=== PATIENT | male | born 1955 | race Caucasian/White ===

== ENCOUNTER 2021-10-03 11:25 | Outpatient (CLI) | payer MEDICARE, SELFPAY | END 2021-10-03 11:26 | disposition home or self-care (01) | PROVIDERS: PCP Family Medicine; Visit Provider Surgery | DX: Z12.11 Encounter for screening for malignant neoplasm of colon (principal); K63.5 Polyp of colon; K63.89 Other specified diseases of intestine; N40.0 Benign prostatic hyperplasia without lower urinary tract symptoms; Z86.010 Personal history of colon polyps | CPT/HCPCS: 45380; 45385; 88305; 99153; J1200; J2250; J3010 ==

== ENCOUNTER 2022-09-17 12:34 | Outpatient (CLI) | payer MEDICARE, SELFPAY ==
--- OUTSIDE RECORDS SUMMARY | 2022-09-17 12:37 | XMS_ITS | Continuity of Care Document ---
Author Name Unknown Organization [facility] Address [address] [place] [address] Encounter BRIGETTE RODRIGUEZ RODY # [id number] Date(s): 04/15/21 - 04/15/22 [facility] [address] [place] [address] Discharge Disposition: Routine Discharge Attending Physician: RONIT ROJAS DO Allergies, Adverse Reactions, Alerts No Known Allergies Medications atorvastatin Oral, Daily, 0 Refill(s), Signed: 02/17/21 12:59:00 MST, Maintenance Start Date: 02/17/21 Status: Ordered buPROPion Oral, 0 Refill(s), Signed: 02/17/21 12:59:00 MST, Maintenance Start Date: 02/17/21 Status: Ordered losartan Oral, Daily, 0 Refill(s), Signed: 02/17/21 12:59:00 MST, Maintenance Start Date: 02/17/21 Status: Ordered meloxicam 15 mg oral tablet 15 mg 1 tab, Oral, Daily, # 21 tab, 0 Refill(s), Signed: 02/17/21 13:39:00 [facility], Maintenance, Pharmacy: [id number], 1 tab Oral Daily,x21 days, 177.8 cm, 02/17/21 12:56:00 [facility], Height, 100 kg, 02/17/21 13:00:00 [facility], Weight Dosing Start Date: 02/17/21 Stop Date: 03/10/21 Status: Ordered metoprolol extended release Oral, Daily, 0 Refill(s), Signed: 02/17/21 12:59:00 MST, Maintenance Start Date: 02/17/21 Status: Ordered pramipexole Oral, 0 Refill(s), Signed: 02/17/21 12:59:00 MST, Maintenance Start Date: 02/17/21 Status: Ordered sertraline Oral, Daily, 0 Refill(s), Signed: 02/17/21 12:59:00 MST, Maintenance Start Date: 02/17/21 Status: Ordered tamsulosin 0.4 mg, Oral, Daily, 0 Refill(s), Signed: 02/17/21 12:59:00 MST, Maintenance Start Date: 02/17/21 Status: Ordered Problem List Condition Confirmation Course Effective Dates Status Health [facility] Informant Hypertension Confirmed Active Social History Social History Type Response Smoking Status Never (less than 100 in lifetime) entered on: 04/08/21 Sex
--- OUTSIDE RECORDS SUMMARY | 2022-09-17 12:37 | XMS_ITS | Continuity of Care Document ---
Author Name Unknown Organization 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 [place], [address], [facility], tel:[phone] [employer] No Information No Information Office/outpat ient visit,[facility], [facility] [place], [address], [facility], tel:[phone] [employer] No Information Mehbod Amir. [facility] [place], [address] [place] [address], [id number], . tel:[phone] Family History Family Member Type Diagnosis Age At Onset No Information Payers Payer name Insurance type Covered green party [place] tirol[place] [id number] BL [id number] Social History Type Description Quantity Date Captured Comments Sex Male Smoking Status No Information Chief Complaint And Reason For Visit No Information Reason For Referral Reason For Referral No Information Plan Of Treatment Date Type Action Status No Information History Of Present Illness Encounter Date Complaint History Of Prese nt Illness No Information Functional Status Date Functional Assessmen t No Information Instructions Date Instruction Additional Infor mation No Information Assessments Type Assessment Date No Information Patient Care Teams Name Effective Dates (start - stop) Status Members No Information
== END 2022-09-17 12:35 | disposition home or self-care (01) ==
LOC: RAD 12:35
PROVIDERS: PCP Family Medicine; Visit Provider Family Medicine
DX: R06.01 Orthopnea (principal); R94.31 Abnormal electrocardiogram [ECG] [EKG]
CPT/HCPCS: 93306

== ENCOUNTER 2022-10-06 07:30 | Day surgery (SDC) | payer MEDICARE, SELFPAY ==
[2022-10-06] VITALS (8 sets, daily range): BP systolic 136–156; BP diastolic 77–104; PULSE 56–67; RESP 16; TEMP 36.6–36.7; O2SAT 94–97; BMI 32.5
[2022-10-06] MEDS: LACTATED RINGERS 1000 ML 1,000 ML 100 ML IV ×2 (07:25→11:04)
--- OUTSIDE RECORDS SUMMARY | 2022-10-06 07:31 | XMS_ITS | Continuity of Care Document ---
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 2010 X-ray exam lower spine 2-3 views 2010 Advance Directives Directive Yes / No Effective Date File Name No Information Encounters Encounter Description Practice Location Reason(s) For Visit Diagnoses Date Provider Providers Copied on Encounter Z [facility], [address], [facility], tel:[phone] [employer] No Information No Information Office/outpat ient visit,[facility], [facility] [place], [address], [facility], tel:[phone] [employer] [place] No Information Mehbod Amir. [facility] [place], [address] [place] [address], [id number], . tel:[phone] Family History Family Member Type Diagnosis Age At Onset No Information Payers Payer name Insurance type Covered constitution party [place] [id number] BL [id number] Social History Type Description Quantity Date Captured Comments Sex Male Smoking Status No Information Chief Complaint And Reason For Visit No Information Reason For Referral Reason For Referral No Information History Of Present Illness Encounter Date Complaint History Of Prese nt Illness No Information Functional Status Date Functional Assessmen t No Information Instructions Date Instruction Additional Infor mation No Information Assessments Type Assessment Date No Information Patient Care Teams Name Effective Dates (start - stop) Status Members No Information
[2022-10-06] MEDS: SODIUM CHLORIDE 0.9 % (FLUSH) 10 ML SYRINGE IVF (07:48)
[2022-10-06] MEDS: MIDAZOLAM HCL 1 MG/ML inj IVP (08:31)
[2022-10-06] MEDS: fentaNYL 100 MCG/2 ML inj IVP (08:31)
--- NOTE | 2022-10-06 08:56 | SUR.PREOP ---
TIME?OUT:?0830 PT/RN/MDA?VERIFICATION?OF?SURGICAL?SITE Left Finger,?PROCEDURE Axe Block,?AND?CONSENT OBTAINED?PRIOR?TO?INVASIVE?PROCEDURE.
--- NOTE | 2022-10-06 09:00 | CRLHL7_ITS ---
For Patients: As a result of the Cures Act, medical imaging exams and procedure reports are released immediately into your electronic medical record. You may view this report before your referring provider. If you have questions, please contact your health care provider. Indication: LEFT SMALL FINGER ORIF Technique: Three fluoroscopic images of the left little finger. Fluoroscopic time 4.8 seconds. IMPRESSION: Fluoroscopic guidance for ORIF left little finger proximal phalangeal fracture. Dictated by Mark Buck MD @ 10/06/2022 10:35:24 AM (Electronically Signed)
[2022-10-06] MEDS: CEFAZOLIN 2 GM in 0.9 % SODIUM CHLORIDE Mini-bag 100 ML IVPB (09:36)
--- NOTE | 2022-10-06 10:01 | W.ANESCHARGE ---
Anesthesia Charges Start Date/Time Anesthesia Start Date: 10/06/22 Anesthesia Start Time: 09:20 Stop Date/Time Anesthesia Stop Date: 10/06/22 Anesthesia Stop Time: 10:58
--- NOTE | 2022-10-06 10:05 | W.PM.NB ---
Nerve Block Nerve Block Time Seen by Provider: 08:35 Date Seen: 10/06/22 Type of block requested by surgeon for post-operative analgesia: axillary Side: left Time out performed: Yes Verification of patient name: Yes Verification of date of : Yes Site marking: site marked Name of person performing procedure: Sid [place] Continuous monitoring Was continuous monitoring of O2 sat, B/P, factory representative, recorded every 15 minutes?: Yes Procedure Checklist: sterile prep, needles and gloves Ultrasound guided. Images saved: Yes Medications given in 5ml increments after negative aspiration: Ropivicaine %: 0.5 mL: 15 and Lidocaine %: 2 mL: 5 Decadron (mg): 10 Precedex (mcg): 15 Patient tolerated procedure well: Yes Block Charges Block Charge (with Pro Fee): Axillary Nerve Use of Ultrasound Machine for Block: Yes- US Guidance/pain block
--- NOTE | 2022-10-06 10:29 | PM.ORPRC ---
Procedure Note Date of procedure: 10/06/22 Procedure: PREOPERATIVE DIAGNOSES: 1. Left small finger proximal phalanx comminuted diaphyseal fracture with shortening and malrotation POSTOPERATIVE DIAGNOSES: 1. Left small finger proximal phalanx comminuted diaphyseal fracture with shortening and malrotation NAME OF OPERATION: 1. Left small finger proximal phalanx open reduction with internal fixation 2. 10529 - intraoperative fluoroscopy up to 1 hour. SURGEON: Tevin Ace MD PATTERN ILLUSTRATOR: Bernardo HYDE - Of note, an registered dental assistant rda was critical for this case to aide in patient positioning, limb manipulation, pin retraction, closure/dressing, and splinting. ANESTHESIA: Axillary nerve block + MAC EBL: 2 mL IMPLANTS: Synthes 2.0 mm cortical fully threaded locking screws (x6) with associated Y plate TOURNIQUET: 50 minutes at 225 torr-forearm tourniquet COMPLICATIONS: None evident INDICATIONS: The patient is a pleasant, 67-year-old male who sustained a left small finger proximal phalanx fracture after a fall within the last week. It was initially reduced at an outside emergency department. Excellent reduction was achieved and splinting a performed. Unfortunately, patient was encouraged to take the splint off for showering. This resulted in loss of reduction. They had difficulty with use and notable pain. X-rays were obtained. They revealed a fracture of the proximal phalanx with shortening and mild malrotation. Given the displacement, surgery was recommended to improve the fracture alignment and stablize the fracture. PROCEDURE: Following a thorough discussion of risks, benefits, and alternatives, consent was obtained and the operative extremity was marked. The patient was brought to the operating room and placed supine on the operating table. Induction of anesthesia was achieved. Appropriate time out was performed identifying proper patient, site and procedure. 2 g IV Ancef was administered within 1 hour of incision preoperatively. The left upper extremity was prepped and draped in the appropriate sterile fashion using ChloraPrep. A dorsal midline incision was made . Sharp incision through skin and blunt dissection through subcutaneous tissue allowed hemostasis to be achieved with bipolar cautery. The extensor mechanism was divided sharply with a 15 blade and later repaired. This allowed us to expose the fracture itself and cleared of interposed periosteum and fracture hematoma. Multiple small comminuted loose bone fragments were identified without soft tissue attachments. These were morcellized and later used for bone grafting. The defect primarily was along the dorsal radial aspect of the midportion at the fracture. The fracture was manipulated with traction of the digit allowing us to improve the alignment to an anatomic position. We were able to use ulnar border of the fracture to assess alignment, angulation, rotation and length. This was held manually. A Y plate was selected and applied to the bone. Temporary fixation was performed and C-arm fluoroscopic imaging confirmed the fracture to be improved alignment and stabilized. Screws were utilized primarily in a locking fashion with exception of the oblong hole which took a nonlocking screw. We were able to achieve 3 screws on both sides of the fracture. C-arm confirmed improved alignment and screw length. Thorough irrigation normal saline was performed. Closure performed with 5-0 Prolene for the extensor mechanism repair in a running locking fashion. The tourniquet was deflated, hemostasis achieved, and thorough irrigation with normal saline completed. Closure performed with 3-0 Vicryl and 4-0 Stratafix for subcutaneous and skin closure, respectively. Dressings were applied. An ulnar gutter splint was applied. Patient was awoken from anesthesia and transferred the PACU in stable condition. PLAN: 1. Elevate operative extremity. 2. Ice, acetominphen or ibuprofen PRN. 3. Oxycodone for pain as needed. 4. Follow up with PA visit in 12-14 days with removal of splint, wound check, and initiation of Orthoplast ulnar gutter short forearm based splint. Then initiate gentle range of motion at 4.5-5 weeks. Follow-up at the 5-6 week nando with [facility] for repeat x-rays left small finger-three views.
== END 2022-10-06 11:49 | disposition home or self-care (01) ==
PROVIDERS: PCP Family Medicine; Visit Provider Orthopaedic Surgery Sports Medicine
PROC: (CPT 26735; principal; 2022-10-06 09:00)
DX: S62.617A Displaced fracture of proximal phalanx of left little finger, initial encounter for closed fracture (principal); G89.18 Other acute postprocedural pain
CPT/HCPCS: 26735; 01830; 64417; 73140; 76942; A4580; C1713; J0690; J1100; J2250; J2405; J2704; J2795; J3010; J7120

== ENCOUNTER 2022-11-04 13:47 | Outpatient (CLI) | payer MEDICARE, SELFPAY ==
--- OUTSIDE RECORDS SUMMARY | 2022-11-04 13:50 | XMS_ITS | Continuity of Care Document ---
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 Name Role Phone Unavailable Unavailable Unavailable Procedures Procedure Date Office/outpatient visit,[facility] 2010 X-ray exam lower spine 2-3 views 2010 Advance Directives Directive Yes / No Effective Date File Name No Information Encounters Encounter Description Practice Location Reason(s) For Visit Diagnoses Date Provider Providers Copied on Encounter Z [facility], [address], [facility], tel:[phone] [employer] No Information No Information Office/outpat ient visit,[facility], [facility] [place], [address], [facility], tel:[phone] [employer] No Information Mehbod Amir. [facility] [place], [address] [place] [address], [id number], . tel:[phone] Family History Family Member Type Diagnosis Age At Onset No Information Payers Payer name Insurance type Covered green party ID Author[place] tirol[place] [id number] BL [id number] Social History Type Description Quantity Date Captured [...]
== END 2022-11-04 13:48 | disposition home or self-care (01) ==
LOC: FRMREF 13:48
PROVIDERS: PCP Family Medicine; Visit Provider Physician Assistant Medical
DX: I10 Essential (primary) hypertension (principal); Z79.01 Long term (current) use of anticoagulants
CPT/HCPCS: 80048

== ENCOUNTER 2022-11-12 09:30 | Outpatient (RCR) | payer MEDICARE, SELFPAY ==
--- NOTE | 2022-10-22 19:00 | OT.OPOE ---
OT Outpatient Ortho Eval OT Outpatient Ortho Eval* Start: 10/22/22 06:51 Freq: Status: Active Protocol: Document 10/22/22 06:52 AMB (Rec: 10/22/22 18:54 AMB [id number]) E-signed By Celena Jalloh, OTR/L, CLT, CLAIMS ASSOCIATE OT OP Ortho Eval Details Complexity Complexity Low Insurance Information Insurance Information Medicare B Outpatient History/Precautions Current Condition/Medical Diagnosis Referring Provider Dr Ace Treatment Diagnosis LUE 5th prox ph fx, s/p ORIF Date of Onset DOI: 09/25/22, DOS: 10/06/22 Medical Conditions DM,Depression,HTN,Arthritis Other Conditions PMH: Thrombocytopenia, Chronic anticoagulation, Apixaban, LUE 5th digit fx, DVT, Elevated PSA, Osteoarthritis of left knee (Chronic), Anxiety, Benign prostatic hyperplasia, Dyslipidemia, Gout, Essential (primary) hypertension, Obstructive sleep apnea syndrome, Prediabetes, Restless legs syndrome, Surgical History: nasal septoplasty (06/03/13), umbilical hernia repair (03/23), 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 Pt was scheduled for a LLE TKA which had to be delayed secondary to his finger fx / surgery. Medications: apixaban 5 mg PO BID atorvastatin 20 mg PO DAILY bupropion HCl 300 mg PO DAILY ceftriaxone 1 g IM QDAY fluoxetine (Prozac) 20 mg PO QDAY lorazepam 1-2 tabs at bedtime as needed for severe insomnia. losartan 50 mg PO DAILY metoprolol succinate ER 100 mg PO DAILY pramipexole 1 mg PO QPM tamsulosin 0.8 mg (2 x 0.4 mg) PO DAILY Medical/Functional History Medical History Reviewed Yes Prior Level of Function/Mobility Full, pain-free use of the LUE . Social History Employment Status Retired Hobbies Enjoys playing Pickle Ball, spending time with his grandchildren Ortho Subjective Subjective Subjective Pt states he injured his finger when he was attempting to level a boat house with a radha, his hand got hit and he sustained an injury that resulted in a displaced fx of the proximal phalanx of the LUE 5th digit. Pt was seen in the ER at [place] , the fx was reduced. Pt was seen for orthopedic consult with Dr Ace on 10/02/22 and it was discovered that there was a 30? dorsal angulation at the fracture site and surgery was indicated. Pt underwent ORIF with Dr Ace on , states he really isn't having any kind of pain, has not had any pain at all. Pt anxious to get his hand better so he can play pickle ball and help his son build a pole barn. Pain Assessment Pain Present Pain Present No Pain Reported Range of Motion and Strength Elbow/Forearm Range of Motion and Strength Elbow/Forearm Range of Motion and Pt demonstrate full AROM of Strength BUE Elbows/forearms Wrist Range of Motion and Strength Wrist Range of Motion and Strength Pt demonstrates full AROM of BUE wrists. Hand/Finger/Thumb Range of Motion and Strength Hand/Finger/Thumb Range of Motion and AROM of BUE hands/fingers/ Strength thumbs is WNL throughout with the exception of the LUE 4th and 5th digits. AROM of the LUE 5th MP is 0-50, PIP is -15 -30, DIP is -20-35. AROM of the LUE 4th digit MP is 0-60, PIP is 0-45, and DIP is 0-25. Pt demonstrates opposition to the tip of the 5th digit. OT Objective Data Hand Hand Dominance Right Skin/Wounds/Edema Comments Incisional area is clean and dry, no drainage and no s/s of infection. Wound is covered by surgical glue. Pt does have expected swelling in the hand / fingers, no pitting. Sensation Sensation Assessment Summary Comments Pt denies any paresthesia. OT Problems Problems Problems Decreased Strength,Decreased Range of Motion,Decreased Dexterity,Decreased Coordination,Lifting,Gripping Other Problems Opening Containers Patient Potential Good Assessment Assessment Assessment Pt presents to OT 2 weeks and 2 days s/p ORIF LUE SF proximal phalanx with expected swelling, limited ROM and weakness. Due to these deficits, pt is limited in all activities that require use of LUE or bilateral integration such as mechanical work, building, playing pickle ball, lifting, etc. Pt will benefit from skilled OT intervention to address limitations and restore full, pain-free use of the LUE. Occupational Therapy Treatment Plan - OP Potential Rehabilitation Potential Good Set Goals Goals Set with Patient Yes Goals Goals 1. Pt will be independent and compliant with HEP in order to resume full, pain-free use of the involved UE. 3 weeks 2. Pt will demonstrate full, pain-free AROM of the involved UE in order to improve ability to grasp and hold. 6 weeks 3. Pt will demonstrate pain- free white washer and pinch strength comparable to the uninvolved side in order to improve functional grasp, hold, reach, and lifting ability needed to complete self-care, leisure tasks, and work activities. 8 weeks. Treatment Plan Treatment Plan Evaluation,Edema Control,Joint Mobilization,Manual Therapy, Splinting,Wound Care/Scar Management,Therapeutic Exercise,Therapeutic Activities,Self Care/Home Management,Education Expected Frequency 1-2x Week Expected Duration 8-10 Weeks Home Program Home Program Home Program Initiated Home Program Specifics Provided training and practice in HEP for AROM and differential tendon glides for the LUE. Following demo, pt is able to demonstrate exs with minimal cues. Pt was provided with written inst for use at home as well. Certification Certification I Certify That: Therapy Services Provided, Therapy Plan Established, Therapy Plan Reviewed Recertification Information Recertification Information Initial Certification Date 10/22/22 Recertification Due Date 01/20/23 Reasons to Continue Skilled Therapy Initiated OT to address deficits in the LUE following ORIF of SF prox ph. Rehabilitation Potential Good Continued Plan of Care and Interventions Please see above. Provider Signature Shows Agreement With POC & Medical Necessity Physician Comment/Change Comment or Changes Physician NPI Number #
== END 2022-11-12 12:03 | disposition home or self-care (01) ==
PROVIDERS: PCP Family Medicine; Visit Provider Orthopaedic Surgery Sports Medicine
DX: S62.609A Fracture of unspecified phalanx of unspecified finger, initial encounter for closed fracture (principal); Z98.890 Other specified postprocedural states; Z96.652 Presence of left artificial knee joint; Z51.89 Encounter for other specified aftercare
CPT/HCPCS: 97110; 97140; 97165; L3808; X5282

== ENCOUNTER 2022-11-18 09:40 | Outpatient (RCR) | payer MEDICARE, SELFPAY | END 2023-03-22 23:59 | disposition home or self-care (01) | LOC: CCIC 09:40 | PROVIDERS: PCP Family Medicine; Visit Provider Internal Medicine Hematology & Oncology | DX: I82.452 Acute embolism and thrombosis of left peroneal vein (principal); I82.432 Acute embolism and thrombosis of left popliteal vein; Z79.01 Long term (current) use of anticoagulants | CPT/HCPCS: 99202; 99204; 99212; 99213 ==

== ENCOUNTER 2022-11-19 10:35 | Day surgery (SDC) | payer MEDICARE, SELFPAY ==
[2022-11-19] VITALS (37 sets, daily range): BP systolic 96–168; BP diastolic 57–113; PULSE 47–59; RESP 12–20; TEMP 35.1–36.6; O2SAT 90–99; BMI 32.2
--- OUTSIDE RECORDS SUMMARY | 2022-11-19 10:38 | XMS_ITS | Continuity of Care Document ---
Author Name Unknown Organization Z [facility] Address [address] [place] [address] Phone Care Team Providers Care Belt And Link Assembly Supervisor Name Role Phone Unavailable Unavailable Unavailable Procedures Procedure Date Office/outpatient visit,[facility] 2010 X-ray exam lower spine 2-3 views 2010 Advance Directives Directive Yes / No Effective Date File Name No Information Encounters Encounter Description Practice Location Reason(s) For Visit Diagnoses Date Provider Providers Copied on Encounter Z [facility], [address], [facility], tel:[phone] [facility] No Information No Information Office/outpat ient visit,[facility] [facility] [place] [facility] [place], [address], [facility], tel:[phone] [employer] [facility] [place] No Information Mehbod Amir. [facility] [place], [address] [place] [address], [id number], . tel:[phone] Family History Family Member Type Diagnosis Age At Onset No Information Payers Payer name Insurance type Covered democrat ID [place]rol[place] [id number] Social History Type Description Quantity Date Captured [...]
[2022-11-19] MEDS: SODIUM CHLORIDE 0.9 % (FLUSH) 10 ML SYRINGE IVF (11:42)
[2022-11-19] MEDS: LACTATED RINGERS 1000 ML 1,000 ML 100 ML IV ×2 (11:43→14:07)
[2022-11-19] MEDS: OXYCODONE (CR) 10 MG TAB.ER.12H PO (12:56)
[2022-11-19] MEDS: ACETAMINOPHEN 500 MG TABLET 1000 MG PO (12:56)
[2022-11-19] MEDS: MIDAZOLAM HCL 1 MG/ML inj IVP (12:59)
[2022-11-19] MEDS: fentaNYL 100 MCG/2 ML inj IVP (12:59)
--- NOTE | 2022-11-19 13:02 | SUR.PREOP ---
TIME?OUT:?1257 PT/Janet Aguirre RN/Dr. Armani MDA?VERIFICATION?OF?SURGICAL?SITE left knee,?PROCEDURE,?AND?CONSENT OBTAINED?PRIOR?TO?INVASIVE?PROCEDURE.
[2022-11-19] MEDS: CEFAZOLIN 2 GM in 0.9 % SODIUM CHLORIDE Mini-bag 100 ML IVPB ×2 (13:12→18:35)
[2022-11-19] MEDS: TRANEXAMIC ACID 100 MG/ML INJ 1000 MG IV (13:15)
--- NOTE | 2022-11-19 13:15 | CRLHL7_ITS ---
For Patients: As a result of the Cures Act, medical imaging exams and procedure reports are released immediately into your electronic medical record. You may view this report before your referring provider. If you have questions, please contact your health care provider. Indication: Left total knee arthroplasty. Technique: Left knee, 2 views. Comparison: 07/09/2022. Findings: Left total knee arthroplasty. The components appear to be an radiographically in good position. There is a periprosthetic fracture through the medial distal femoral metaphysis. There is only 2-3 mm displacement. Expected intra-articular air, subcutaneous emphysema, and large soft tissue swelling. Normal underlying bone mineralization. No focal destructive bone lesions. Impression: Left distal femur periprosthetic fracture. Findings called to Dr. Wyatt at 3:48 p.m. CREDIT CONTROL ADMINISTRATOR on 11/19/[address] Peguero. Dictated by Leana Peguero MD @ 11/19/2022 3:49:25 PM (Electronically Signed)
--- NOTE | 2022-11-19 13:28 | P.NB_ITS ---
Nerve Block Nerve Block Time Seen by Provider: 12:56 Date Seen: 11/19/22 Type of block requested by surgeon for post-operative analgesia: adductor canal Side: left Time out performed: Yes Verification of patient name: Yes Verification of date of : Yes Site marking: site marked Name of person performing procedure: Armani Continuous monitoring Was continuous monitoring of O2 sat, B/P, cafeteria monitor, recorded every 15 minutes?: Yes Procedure Checklist: sterile prep, needles and gloves Ultrasound guided. Images saved: Yes Medications given in 5ml increments after negative aspiration: Ropivicaine %: 0.5 mL: 20 Needle gauge: 20 Decadron (mg): 10 Precedex (mcg): 25 Patient tolerated procedure well: Yes Additional comments: Needle noted adjacent to nerve Block Charges Block Charge (with Pro Fee): Femoral Nerve Use of Ultrasound Machine for Block: Yes- US Guidance/pain block
--- NOTE | 2022-11-19 13:28 | W.PM.NB ---
Nerve Block Nerve Block Time Seen by Provider: 12:56 Date Seen: 11/19/22 Type of block requested by surgeon for post-operative analgesia: geniculars Side: left Time out performed: Yes Verification of patient name: Yes Verification of date of : Yes Site marking: site marked Name of person performing procedure: Armani Continuous monitoring Was continuous monitoring of O2 sat, B/P, mixing machine tender, recorded every 15 minutes?: Yes Procedure Checklist: sterile prep, needles and gloves Medications given in 5ml increments after negative aspiration: Ropivicaine %: 0.5 mL: 9 Needle gauge: 25 Patient tolerated procedure well: Yes Block Charges Block Charge (with Pro Fee): Genicular Nerve Block Use of Ultrasound Machine for Block: No
--- NOTE | 2022-11-19 13:29 | W.ANESCHARGE ---
Anesthesia Charges Start Date/Time Anesthesia Start Date: 11/19/22 Anesthesia Start Time: 13:00 Stop Date/Time Anesthesia Stop Date: 11/19/22 Anesthesia Stop Time: 14:52
--- NOTE | 2022-11-19 14:14 | P.ORPRC_ITS ---
Procedure Note Date of procedure: 11/19/22 Procedure: PREOPERATIVE DIAGNOSIS: 1. Left knee osteoarthritis, primary, severe POSTOPERATIVE DIAGNOSIS: 1. Left knee osteoarthritis, primary, severe PROCEDURE: 1. Left total knee arthroplasty SURGEON: Tevin Ace MD. BANK SECRECY ACT OFFICER: MARY ELLEN Pisano - Of note, a skilled clerical dentist assistant was critical for this case to aid in patient positioning, tissue retraction, limb manipulation/positioning, and closure. ANESTHESIA: Spinal anesthetic EBL: 50ml IMPLANTS: DePuy J&J uncemented femur/tibia, cemented patella TKA - Attune Press fit PS femur size 8, size 7 tibia, 5 poly spacer, 41mm cemented patella TOURNIQUET: 70 min at 300 torr COMPLICATIONS: None evident INDICATIONS: The patient is a pleasant 67-year-old male who has experienced severe left knee pain and difficulty bearing weight. Workup included x-rays which revealed severe osteoarthrosis in the knee. Given the deformity, the dysfunction, and the pain, as well as the failure of nonoperative management, recommendation was made for surgery. FINDINGS: Full-thickness chondral loss broadly throughout the medial femoral condyle with significant subchondral dense bone. Significant patellofemoral chondromalacia. To lesser degree lateral compartment. Degenerative meniscus pathology both compartments. DESCRIPTION OF PROCEDURE: Following a thorough discussion of risks, benefits, and alternatives consent was obtained and the left knee was marked. The patient was brought to the operating room and placed supine on the operating table. Induction of anesthesia was undertaken. 2 g IV Ancef and 1 g tranexamic acid was administered within 1 hr of incision preoperatively. Proper time-out was performed identifying proper patient, site, procedure. The operative extremity was prepped and draped in the appropriate sterile fashion using ChloraPrep after the patient was positioned supine with all bony prominences well padded. A longitudinal, anterior, midline skin incision was made starting approximately 3cm proximal to the superior pole of the patella and advanced distal to the tibial tubercle. A median parapatellar arthrotomy was created. A medial subperiosteal sleeve was created with knife, stephens elevator and curved osteotome. The retropatellar fatpad was resected and the synovium in the suprapatellar pouch excised to visualize the anterior femoral cortex. Femoral preparation was performed via an intramedullary guide. Step drill allowed access into the femoral canal. The distal cutting guide was placed with 5? of valgus and 11 mm cut on the distal femur. Femur was sized using a posteri or referencing guide in 3? of external rotation. This found have a best fit with the sizing noted above. The 4 in 1 cutting block was then placed, and the distal femur shaped accordingly. The box cut was then created and the trial implant inserted to confirm appropriate fit. We turned our attention to the proximal tibia. Extramedullary guide was utilized for cutting with the goal of being 90 degree cut from the mechanical axis of the tibia in the varus/valgus plane utilizing tibial crest as the primary alignment. Initially a 3 mm resection was performed from the medial tibial plateau. Ultimately, balancing was achieved in both flexion and extension in both varus and valgus. The knee was able to achieve full extension comfortably. The patella was initially measured and found have a thickness of 24 mm. It was resected back to approximately 14 mm. It was sized to be a best fit with as noted above. This was drilled & trial placed. All trials were placed and found to have an excellent stability and balance. At this stage, trial implants were removed, the tibia and femoral components were opened and inserted. Thereafter, the patella was thoroughly irrigated normal saline and dried. The cement was previously mixed on the back table and cement placed followed by the implant. This was clamped and allowed remained stable until the cement cured. The real poly spacer was opened and inserted. All extra cement was removed, and a 3 min Betadine soak performed. Finally, a final irrigation round with normal saline was performed. Closure performed with 0 PDS and #0 Stratafix for the quad tendon/retinaculum. 2-0 Vicryl/Stratafix for the subcutaneous and 4-0 Monocryl for subcuticular closure. Dressings were applied and the patient was awoken from anesthesia after the tourniquet deflated and transferred the PACU in stable condition. A skilled clerical dentist assistant was critical for this case to aid in patient positioning, tissue retraction, bone exposure, limb manipulation/positioning, patient safety, and closure. PLAN: 1. Weight bear as tolerated operative extremity. 2. 23 hr perioperative antibiotics. 3. Ice. 4. PT/OT consults for ambulation assistance/mobility education. 5. Social work consult for discharge planning. 6. DVT prophylaxis with at SCDs, Rajeev Hose, and aspirin twice daily.
--- NOTE | 2022-11-19 14:14 | W.PM.H&PU ---
History & Physical Update History & Physical Update H&P Reviewed and patient assessed: No changes noted
--- NOTE | 2022-11-19 14:54 | W.ANESCHARGE ---
Anesthesia Charges Start Date/Time Anesthesia Start Date: 11/19/22 Anesthesia Start Time: 13:00 Stop Date/Time Anesthesia Stop Date: 11/19/22 Anesthesia Stop Time: 14:52
--- NOTE | 2022-11-19 16:30 | CRLHL7_ITS ---
For Patients: As a result of the Cures Act, medical imaging exams and procedure reports are released immediately into your electronic medical record. You may view this report before your referring provider. If you have questions, please contact your health care provider. Indication: ORIF Left Knee Technique: Two fluoroscopic images of the left knee. Fluoroscopic time 2 seconds. IMPRESSION: Fluoroscopic guidance of fixation across the distal femoral fracture above the prosthesis. Dictated by Mark Buck MD @ 11/20/2022 8:08:03 AM (Electronically Signed)
[2022-11-19] MEDS: LACTATED RINGERS 1000 ML 1,000 ML 75 ML IV (16:58)
--- NOTE | 2022-11-19 18:32 | W.PM.H&PU_ITS ---
History & Physical Update History & Physical Update H&P Reviewed and patient assessed: The following changes are noted below H&P Updates: The patient underwent a left TKA today. Press-Fit design. Intraoperatively, no complications were identified. The patient achieved full range of motion as be expected following TKA. No audible crack could be heard during surgery. No sudden excessive range of motion was felt. No change in the stability with varus and valgus stress could be appreciated. However, postop radiographs that were obtained did reveal a medial femoral distal condylar fracture with minimal displacement. The implant itself did not appear to be displaced the femoral component that is, but given the fracture, it was recommended to stabilize this. I communicated the findings to the patient and his . I showed them the radiographs. I helped him understand the current situation. He understands the pros and cons of staying the nonoperative course verses ORIF of the left distal femur. Indeed we will plan to do the surgery tonight. Consent was obtained he re this evening and the extremity was marked.
--- NOTE | 2022-11-19 18:39 | P.IMCN_ITS ---
Date of Consult Patient: [facility] Patient Consult date: 11/19/22 Requesting Physician: Orthopedics Primary Care Provider: Beena Pablo MD Consult Narrative Reason for consult: DVT in June 2022, HTN, hyperlipidemia Narrative: Mukul Castillo is a 67 year old male with h/o DVT this past year who underwent an elective left total knee arthroplasty by Dr. Ace today for severe osteoarthritis. He went back to the OR after I saw him for something seen on the post op film. When I saw him, he was feeling well and with minimal pain. His , Rosalva, was in the room with him. Review of Systems Status of ROS: Reports: 6 or more systems reviewed and unremarkable except as noted in History and below [facility] Medical History (Updated 11/19/22 @ 20:34 by Aury Hernandez MD) Back pain ?M54.9 - Dorsalgia, unspecified (ICD-10) Chronic anticoagulation ?Z79.01 - [facility] (current) use of anticoagulants (ICD-10) Elevated PSA ?R97.20 - Elevated prostate specific antigen [PSA] (ICD-10) Osteoarthritis of left knee ?M17.12 - Unilateral primary osteoarthritis, left knee (ICD-10) Benign prostatic hyperplasia (04/02/12) ?N40.0 - Benign prostatic hyperplasia without lower urinary tract symptoms (ICD-10) Gout ?M10.9 - Gout, unspecified (ICD-10) Adenomatous colon polyp ?D12.6 - Benign neoplasm of colon, unspecified (ICD-10) DVT (deep venous thrombosis) ?I82.409 - Acute embolism and thrombosis of unspecified deep veins of unspecified lower extremity (ICD-10) Anxiety disorder (01/13/11) ?F41.9 - Anxiety disorder, unspecified (ICD-10) Depression ?F32.A - Depression, unspecified (ICD-10) Dyslipidemia ?E78.5 - Hyperlipidemia, unspecified (ICD-10) Hypertension (06/07/09) ?I10 - Essential (primary) hypertension (ICD-10) Obstructive sleep apnea syndrome (06/07/09) ?G47.33 - Obstructive sleep apnea (adult) (pediatric) (ICD-10) Prediabetes ?R73.03 - Prediabetes (ICD-10) Restless legs syndrome (01/13/11) ?G25.81 - Restless legs syndrome (ICD-10) Pre-op exam ?Z01.818 - Encounter for other preprocedural examination (ICD-10) Thrombocytopenia ?D69.6 - Thrombocytopenia, unspecified (ICD-10) Melena ?K92.1 - Melena (ICD-10) Hematuria ?R31.9 - Hematuria, unspecified (ICD-10) Umbilical hernia ?K42.9 - Umbilical hernia without obstruction or gangrene (ICD-10) Surgical History (Updated 11/19/22 @ 20:31 by Aury Hernandez MD) S/P total knee arthroplasty (11/19/22) ?Z96.659 - Presence of unspecified artificial knee joint (ICD-10) H/O colonoscopy ?Z98.890 - Other specified postprocedural states (ICD-10) History of open reduction and internal fixation (ORIF) procedure (10/06/22) ?Z98.890 - Other specified postprocedural states (ICD-10) History of nasal septoplasty (06/03/13) ?Z98.890 - Other specified postprocedural states (ICD-10) History of umbilical hernia repair (03/23/17) ?Z98.890 - Other specified postprocedural states (ICD-10) ?Z87.19 - Personal history of other diseases of the digestive system (ICD-10) H/O inguinal hernia repair (03/23/17) ?Z98.890 - Other specified postprocedural states (ICD-10) ?Z87.19 - Personal history of other diseases of the digestive system (ICD-10) 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) ?Z96.651 - Presence of right artificial knee joint (ICD-10) History of colonoscopy with polypectomy ?Z98.890 - Other specified postprocedural states (ICD-10) ?Z86.010 - Personal history of colonic polyps (ICD-10) History of esophagogastroduodenoscopy (EGD) (10/2014) ?Z98.890 - Other specified postprocedural states (ICD-10) History of rotator cuff surgery ?Z98.890 - Other specified postprocedural states (ICD-10) History of surgical amputation of finger ?Z89.029 - Acquired absence of unspecified finger(s) (ICD-10) Status post total shoulder replacement ?Z96.619 - Presence of unspecified artificial shoulder joint (ICD-10) Family History (Updated 11/19/22 @ 15:05 by Aury Hernandez MD) Father Bladder cancer Mother Colorectal cancer High blood pressure Social History (Updated 11/19/22 @ 16:53 by Aury Hernandez MD) Narrative: Alcohol ingestion, 1-4 drinks/week Does not use illicit drugs Nonsmoker, lifelong Worked on [employer] Smoking Status: Never smoker Do you use any of these nicotine containing products: None Second hand tobacco smoke exposure: No How often do you have a drink containing alcohol: 2-4 times a month Alcohol type: beer How many standard drinks containing alcohol do you have on a typical day: 1 or 2 How often do you have six or more drinks on one occasion: Never AUDIT-C Alcohol total score: 2 Non-prescribed substance use: denies use Caffeine: Yes (Diet Coke, 2 cans/week) Little interest or pleasure in doing things: not at all Feeling down, depressed, or hopeless: not at all service: No Meds Home Medications and Allergies Home Medications Medication Instructions Recorded Confirmed Type lorazepam 0.5 mg tablet mg PO .Bedtime as needed PRN 10/01/22 11/18/22 History Allergies Allergy/AdvReac Type Severity Reaction Status Date / Time No Known Allergies Allergy Verified 11/19/22 10:55 Exam Narrative: Exam Narrative: General: No acute distress. Awake alert oriented x3. HEENT: Normocephalic atraumatic, pupils equally round and reactive to light and accommodation. Oropharynx clear. Mucous membranes are moist. No JVD. Cardiovascular: Regular rate and rhythm. No murmurs, gallops, or rubs. Chest: No increased work of breathing. Clear to auscultation bilaterally. No crackles or wheezes. Abdomen: Bowel sounds present. Soft, nondistended, nontender. No hepatosplenomegaly or masses. Extremities: Left knee bandage is clean, dry, and intact. No edema, no cyanosis or clubbing. Skin: No jaundice, no pallor, no rashes. Const: Vital Signs, click to edit/add: Vital Signs - 24 hr 11/19/22 11:41 11/19/22 12:56 11/19/22 13:00 Temperature 97.7 F Pulse Rate 58 L 58 L 52 L Pulse Rate [Pulse Oximeter] Respiratory Rate 16 16 16 Blood Pressure 159/97 H 149/97 H 140/96 H Blood Pressure [Le ft Arm] Blood Pressure [Ri ght Arm] Pulse Oximetry 93 93 93 Oxygen Delivery Me thod Room Air Nasal Cannula Nasal Cannula Oxygen Flow Rate 2 2 11/19/22 14:50 11/19/22 14:55 11/19/22 15:00 Temperature 97.7 F Pulse Rate 53 L 52 L 53 L Pulse Rate [Pulse Oximeter] Respiratory Rate 16 12 19 Blood Pressure 96/57 L 100/65 103/70 Blood Pressure [Le ft Arm] Blood Pressure [Ri ght Arm] Pulse Oximetry 91 93 90 Oxygen Delivery Me thod Non Rebreather Mas k Nasal Cannula Oxygen Flow Rate 6 3 11/19/22 15:05 11/19/22 15:10 11/19/22 15:15 Temperature Pulse Rate 55 L 54 L 52 L Pulse Rate [Pulse Oximeter] Respiratory Rate 20 20 20 Blood Pressure 116/76 116/73 108/69 Blood Pressure [Le ft Arm] Blood Pressure [Ri ght Arm] Pulse Oximetry 97 96 94 Oxygen Delivery Me thod Oxygen Flow Rate 2 11/19/22 15:20 11/19/22 15:25 11/19/22 15:30 Temperature 97.6 F Pulse Rate 52 L 52 L 54 L Pulse Rate [Pulse Oximeter] Respiratory Rate 16 12 20 Blood Pressure 110/62 125/83 139/83 Blood Pressure [Le ft Arm] Blood Pressure [Ri ght Arm] Pulse Oximetry 90 96 99 Oxygen Delivery Me thod Nasal Cannula Oxygen Flow Rate 2 11/19/22 15:40 11/19/22 15:57 11/19/22 16:00 Temperature 95.2 F L 95.2 F L Pulse Rate 51 L Pulse Rate [Pulse Oximeter] 51 L 52 L Respiratory Rate 16 16 16 Blood Pressure Blood Pressure [Le ft Arm] 134/89 140/89 H Blood Pressure [Ri ght Arm] 134/89 Pulse Oximetry 94 92 Oxygen Delivery Me thod Room Air Room Air Room Air Oxygen Flow Rate 11/19/22 16:15 11/19/22 16:30 11/19/22 16:45 Temperature 95.2 F L Pulse Rate Pulse Rate [Pulse Oximeter] 51 L 50 L 50 L Respiratory Rate 16 16 16 Blood Pressure Blood Pressure [Le ft Arm] 136/90 H 148/88 H 139/95 H Blood Pressure [Ri ght Arm] Pulse Oximetry 91 93 93 Oxygen Delivery Me thod Room Air Room Air Room Air Oxygen Flow Rate 11/19/22 17:00 Temperature Pulse Rate Pulse Rate [Pulse Oximeter] 48 L Respiratory Rate 16 Blood Pressure Blood Pressure [Le ft Arm] 150/92 H Blood Pressure [Ri ght Arm] Pulse Oximetry 93 Oxygen Delivery Me thod Room Air Oxygen Flow Rate Assessment and Plan Assessment and plan (1) S/P total knee arthroplasty: Problem comment: - 11/19/2022 Dr. Ace - angelo per Ortho - VTE prophylaxis with twice a day Eliquis due to unprovoked DVT 4-5 months ago. I discussed this with Ortho and, due to need for repeat manipulation of the area this evening, will start Eliquis with tomorrow evening's dose. Status: Acute (2) Osteoarthritis of left knee: Problem comment: severe Status: Chronic (3) Chronic anticoagulation: Problem comment: - Apixaban for DVT 06/2022 - restart apixaban tomorrow evening as above Status: Chronic (4) Anxiety disorder: Problem comment: Continue fluoxetine and lorazepam Status: Chronic (5) Dyslipidemia: Problem comment: Continue atorvastatin Status: Chronic (6) Depression: Status: Chronic (7) Hypertension: Problem comment: Hold home antihypertensives as patients often have low blood pressure the 1st postoperative day Status: Chronic (8) Obstructive sleep apnea syndrome: Problem comment: CPAP - brought with him to the hospital Status: Chronic (9) Thrombocytopenia: Problem comment: - Platelets 126 on preop labs 11/04/22. - Monitor. Status: Chronic
--- NOTE | 2022-11-19 19:03 | PC.NURSE ---
Addendum entered by Gabriella Moore RN 11/19/22 19:18: Patient left Med/Surg at approximately 1830 to return to OR. Original Note: Patient arrived to Med/Surg from OR at approximately 1540. Patient is alert and oriented to person, place, and time. Patient spouse in room upon arrival to Med/Surg floor. Patient denies pain. MD discussed need for surgical repair of femur fracture, see MD notes. Patient verbalized understanding of procedure. Patient left Med/Surg at approximately 1725 to return to OR.
--- NOTE | 2022-11-19 20:12 | P.ANES_ITS ---
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
[2022-11-19] MEDS: OXYCODONE 5 MG TABLET PO (21:25)
[2022-11-20] MEDS: ACETAMINOPHEN 500 MG TABLET 1000 MG PO ×2 (00:14→06:21)
[2022-11-20 03:00] VITALS: BP 153/91; PULSE 60; RESP 16; TEMP 36.3; O2SAT 94
[2022-11-20] MEDS: CEFAZOLIN 2 GM in 0.9 % SODIUM CHLORIDE Mini-bag 100 ML IVPB ×2 (03:06→11:32)
[2022-11-20] MEDS: OXYCODONE 5 MG TABLET PO ×2 (03:07→11:44)
[2022-11-20] MEDS: LORazepam 0.5 MG TABLET PO (03:52)
[2022-11-20 06:22] LABS: Hemoglobin* 14.5 gm/dL (13.5-17.5); Lymphocytes Percent Auto 17.1 % (20-44); Mean Corpuscular HGB Conc 33 gm/dL (32-36); Mean Corpuscular Hemoglobin 26 pg (26-34); Mean Corpuscular Volume 80 fL (80-100); Neutrophils Percent Auto 77.9 % (42.0-72.0); Platelet Count* 152 K/uL (140-440); RDW Coefficient of Variation % 13.4 % (11.5-15.5); Red Blood Count 5.51 m/uL (4.30-5.90); White Blood Count* 14.93 K/uL (4.50-11.00)
[2022-11-20 06:23] LABS: Basophils Percent Auto 0.1 % (0.0-3.0); Immature Granulocytes Pct Auto 0.3 %; Monocytes Percent Auto 4.6 % (0.0-11.0)
--- NOTE | 2022-11-20 06:32 | PC.NURSE ---
23-07: pleasant and Cooperative. SBA with gb and walker, tolerating well. Rating pain 1-10, see eMAR. VSS. Dressing CDI, cryocuff on. Pt drinking fluids and tolerating regular diet, snacks provided throughout the night, pt states he doesn?t usually sleep well throughout the night, so he snacks during the night, prn Ativan given, offered some sleep.
[2022-11-20 06:35] LABS: Potassium* 4.2 mmol/L (3.6-5.1); Sodium* 135 mmol/L (135-149)
[2022-11-20 06:38] LABS: Blood Urea Nitrogen* 18 mg/dL (7-30); Creatinine* 0.8 mg/dL (0.5-1.5); Est. Creatinine Clearance* 71.68; Estimated Glomerular Filt Rate 97 ml/min
[2022-11-20 06:42] LABS: Slide Review Reflex No
[2022-11-20 07:00] VITALS: BP 145/80; PULSE 52; RESP 16; TEMP 36.2; O2SAT 92
[2022-11-20] MEDS: ATORVASTATIN 10 MG TABLET 20 MG PO (09:05)
[2022-11-20] MEDS: SENNOSIDES 1 TAB TABLET 2 TAB PO (09:05)
[2022-11-20] MEDS: FLUOXETINE HCL 20 MG CAPSULE PO (09:05)
[2022-11-20] MEDS: TAMSULOSIN HCL 0.4 MG CAPSULE 0.8 MG PO (09:05)
[2022-11-20] MEDS: buPROPion XL 150 MG TABLET 300 MG PO (09:05)
--- NOTE | 2022-11-20 09:52 | PM.ORPN ---
Subjective Subjective Date Seen: 11/20/22 Principal diagnosis: Status postop day 1 left total knee arthroplasty Interval history: Patient reports doing well. No acute events over night. Did not sleep the best. Tries to keep moving his knee. Pain managed with scheduled and PRN medications, ice. DVT prophylaxis: Apixaban, bilateral knee high Rajeev stockings, SCDs. Denies fevers, chills, aches, N/V, CP, SOB/GORE, or lightheadedness. Ortho Exam Narrative Exam Narrative: -Patient appears comfortable; no apparent acute distress -Alert and oriented times 3 -Operative knee moderately swollen; soft tissues supple; no ecchymosis; no erythematous streaking Warmth appropriate -Surgical dressing clean, dry, intact; no drainage -ROM 5-75 degrees actively -Bilateral calfs soft; no significant swelling, edema, tenderness, erythema, discoloration, warmth, or palpable cords -2+ DP/PT pulses, intact dermatomes and myotomes distally (5/5 strength) Const Vital Signs, click to edit/add: Vital Signs - 24 hr 11/19/22 11:41 11/19/22 12:56 11/19/22 13:00 Temperature 97.7 F Pulse Rate 58 L 58 L 52 L Pulse Rate [Pulse Oximeter] Respiratory Rate 16 16 16 Blood Pressure 159/97 H 149/97 H 140/96 H Blood Pressure [Left Arm] Blood Pressure [Right Arm] Pulse Oximetry 93 93 93 Oxygen Delivery Method Room Air Nasal Cannula Nasal Cannula Oxygen Flow Rate 2 2 11/19/22 14:50 11/19/22 14:55 11/19/22 15:00 Temperature 97.7 F Pulse Rate 53 L 52 L 53 L Pulse Rate [Pulse Oximeter] Respiratory Rate 16 12 19 Blood Pressure 96/57 L 100/65 103/70 Blood Pressure [Left Arm] Blood Pressure [Right Arm] Pulse Oximetry 91 93 90 Oxygen Delivery Method Non Rebreather Mask Nasal Cannula Oxygen Flow Rate 6 3 11/19/22 15:05 11/19/22 15:10 11/19/22 15:15 Temperature Pulse Rate 55 L 54 L 52 L Pulse Rate [Pulse Oximeter] Respiratory Rate 20 20 20 Blood Pressure 116/76 116/73 108/69 Blood Pressure [Left Arm] Blood Pressure [Right Arm] Pulse Oximetry 97 96 94 Oxygen Delivery Method Oxygen Flow Rate 2 11/19/22 15:20 11/19/22 15:25 11/19/22 15:30 Temperature 97.6 F Pulse Rate 52 L 52 L 54 L Pulse Rate [Pulse Oximeter] Respiratory Rate 16 12 20 Blood Pressure 110/62 125/83 139/83 Blood Pressure [Left Arm] Blood Pressure [Right Arm] Pulse Oximetry 90 96 99 Oxygen Delivery Method Nasal Cannula Oxygen Flow Rate 2 11/19/22 15:40 11/19/22 15:57 11/19/22 16:00 Temperature 95.2 F L 95.2 F L Pulse Rate 51 L Pulse Rate [Pulse Oximeter] 51 L 52 L Respiratory Rate 16 16 16 Blood Pressure Blood Pressure [Left Arm] 134/89 140/89 H Blood Pressure [Right Arm] 134/89 Pulse Oximetry 94 92 Oxygen Delivery Method Room Air Room Air Room Air Oxygen Flow Rate 11/19/22 16:15 11/19/22 16:30 11/19/22 16:45 Temperature 95.2 F L Pulse Rate Pulse Rate [Pulse Oximeter] 51 L 50 L 50 L Respiratory Rate 16 16 16 Blood Pressure Blood Pressure [Left Arm] 136/90 H 148/88 H 139/95 H Blood Pressure [Right Arm] Pulse Oximetry 91 93 93 Oxygen Delivery Method Room Air Room Air Room Air Oxygen Flow Rate 11/19/22 17:00 11/19/22 17:30 11/19/22 18:00 Temperature Pulse Rate Pulse Rate [Pulse Oximeter] 48 L 47 L 51 L Respiratory Rate 16 16 16 Blood Pressure Blood Pressure [Left Arm] 150/92 H 153/92 H 145/98 H Blood Pressure [Right Arm] Pulse Oximetry 93 92 93 Oxygen Delivery Method Room Air Room Air Room Air Oxygen Flow Rate 11/19/22 20:05 11/19/22 20:10 11/19/22 20:15 Temperature 97.7 F Pulse Rate 53 L 56 L 54 L Pulse Rate [Pulse Oximeter] Respiratory Rate 16 16 16 Blood Pressure 110/78 119/87 116/86 Blood Pressure [Left Arm] Blood Pressure [Right Arm] Pulse Oximetry 92 91 96 Oxygen Delivery Method Room Air Room Air Room Air Oxygen Flow Rate 11/19/22 20:20 11/19/22 20:25 11/19/22 20:30 Temperature 97.6 F Pulse Rate 53 L 53 L 53 L Pulse Rate [Pulse Oximeter] Respiratory Rate 16 16 16 Blood Pressure 124/99 H 124/95 H 138/91 H Blood Pressure [Left Arm] Blood Pressure [Right Arm] Pulse Oximetry 94 93 95 Oxygen Delivery Method Room Air Room Air Room Air Oxygen Flow Rate 11/19/22 20:35 11/19/22 20:52 11/19/22 21:02 Temperature 97.8 F 97 F L 97 F L Pulse Rate 50 L Pulse Rate [Pulse Oximeter] 51 L 59 L Respiratory Rate 16 16 16 Blood Pressure 138/98 H Blood Pressure [Left Arm] 162/109 H 160/90 H Blood Pressure [Right Arm] Pulse Oximetry 93 93 92 Oxygen Delivery Method Room Air Room Air Room Air Oxygen Flow Rate 0 11/19/22 21:19 11/19/22 21:40 11/19/22 22:10 Temperature 97 F L 97 F L 97 F L Pulse Rate Pulse Rate [Pulse Oximeter] 53 L 54 L 56 L Respiratory Rate 16 16 16 Blood Pressure Blood Pressure [Left Arm] 168/101 H 158/113 H 150/85 H Blood Pressure [Right Arm] Pulse Oximetry 92 96 93 Oxygen Delivery Method Room Air Room Air Room Air Oxygen Flow Rate 0 0 0 11/19/22 22:39 11/19/22 22:40 11/19/22 22:43 Temperature 97 F L 97 F L Pulse Rate Pulse Rate [Pulse Oximeter] 56 L 56 L Respiratory Rate 16 16 Blood Pressure Blood Pressure [Left Arm] 146/87 H 146/87 H Blood Pressure [Right Arm] Pulse Oximetry 94 94 94 Oxygen Delivery Method Room Air Room Air Oxygen Flow Rate 0 11/19/22 23:30 11/20/22 03:00 11/20/22 07:00 Temperature 97.2 F L 97.4 F L Pulse Rate Pulse Rate [Pulse Oximeter] 58 L 60 Respiratory Rate 16 16 Blood Pressure Blood Pressure [Left Arm] 144/84 H 153/91 H Blood Pressure [Right Arm] Pulse Oximetry 93 94 92 Oxygen Delivery Method Room Air Room Air Oxygen Flow Rate 0 0 11/20/22 07:00 11/20/22 07:00 Temperature 97.2 F L Pulse Rate Pulse Rate [Pulse Oximeter] 52 L 52 L Respiratory Rate 16 16 Blood Pressure Blood Pressure [Left Arm] 145/80 H Blood Pressure [Right Arm] Pulse Oximetry 92 Oxygen Delivery Method Room Air Oxygen Flow Rate 0 Assessment and Plan Assessment and plan (1) S/P total knee arthroplasty: Problem details: - 11/19/2022 Dr. Ace - [facility] per Ortho - VTE prophylaxis with twice a day Eliquis due to unprovoked DVT 4-5 months ago. I discussed this with Ortho and, due to need for repeat surgery/manipulation of the knee this evening, will start Eliquis with tomorrow evening's dose (11/20/2022). Status: Acute (2) Osteoarthritis of left knee: Problem details: severe Status: Chronic (3) Chronic anticoagulation: Problem details: - Apixaban for DVT 06/2022 - restart apixaban tomorrow evening (11/20/2022) as above Status: Chronic (4) Anxiety disorder: Problem details: Continue fluoxetine and lorazepam Status: Chronic (5) Dyslipidemia: Problem details: Continue atorvastatin Status: Chronic (6) Depression: Status: Chronic (7) Hypertension: Problem details: Hold home antihypertensives as patients often have low blood pressure the 1st postoperative day Status: Chronic (8) Obstructive sleep apnea syndrome: Problem details: CPAP - brought with him to the hospital Status: Chronic (9) Thrombocytopenia: Problem details: - Platelets 126 on preop labs 11/04/22. - Monitor. Status: Chronic Plan - Complete 23 hour perioperative antibiotics. - PT/OT consult for education and assistance. - Social work consult for discharge planning - Prescribed analgesics as needed - DVT prophylaxis: Apixaban starting evening of 11/20/2022, bilateral knee high Rajeev Hose stockings and SCDs. Week to start this evening (11/20/2022), to prevent the knee from becoming significantly swollen and bruised, a result we typically see with blood thinners like rivaroxaban and apixaban soon after TKA. - Anticipation is for discharge to home with spouse 11/20/2022 if the patient remains medically stable, pain is controlled, and they are safe with mobilization. We discussed toe-touch weightbear at this time left lower extremity due to fracture. Walker/crutches for assistance with this. I spoke with hospital PT about this as well. Otherwise, typical PT exercises as indicated. Patient is states they live in a split-level. I am not sure how stairs will go for them. They may have other options including living in her son's home right now without steps. They will try to figure this out. Stairs may be difficult to navigate with his limited weight-bearing status on the left lower extremity.
--- NOTE | 2022-11-27 09:46 | P.ORPRC_ITS ---
Procedure Note Date of procedure: 11/19/22 Procedure: PREOPERATIVE DIAGNOSIS: 1. Left distal femur periprosthetic fracture following TKA POSTOPERATIVE DIAGNOSIS: 1. Left distal femur periprosthetic fracture following TKA PROCEDURE: 1. Left distal femur open reduction and internal fixation of periprosthetic fracture SURGEON: Tevin Ace MD. HEATING AND REFRIGERATION INSPECTOR: MARY ELLEN Pisano - Of note, a skilled ex assistant/program director was critical for this case to aid in patient positioning, tissue retraction, limb manipulation/positioning, and closure. ANESTHESIA: Spinal anesthetic EBL: 50ml IMPLANTS: Arthrex knotless tight rope (x2) TOURNIQUET: 50 minutes at 300 torr COMPLICATIONS: None evident INDICATIONS: The patient is a pleasant 67-year-old male who underwent left TKA today, 11/19/2022. Routine post operative radiographs revealed a distal femur periprosthetic fracture primarily involving the medial femoral condyle. Although the diaphysis was in continuity with the lateral condyle and the implant appeared to be stable without displacement of the fracture fragment, it was felt prudent to stabilize the fracture to minimize risk for displacement in his recovery time from TKA. I spoke with the patient and his showing him the x-rays from the postop TKA and help him understand the current situation. We discussed the risks, benefits, and alternatives. I believe all questions were answered. Surgery was performed for ORIF on 11/19/2022. FINDINGS: Stable left distal femur medial condylar fracture. Stable femoral component. Stable TKA. Stable MCL upon exam. No evidence of loosening. Very subtle fracture could be palpated deep to the periosteum along that medial femoral distal aspect. DESCRIPTION OF PROCEDURE: Following a thorough discussion of risks, benefits, and alternatives consent was obtained and the left knee was marked. The patient was brought to the operating room and placed supine on the operating table. Induction of anesthesia was undertaken. 2 g IV Ancef was administered within 1 hr of incision preoperatively. Proper time-out was performed identifying proper patient, site, procedure. The operative extremity was prepped and draped in the appropriate sterile fashion using ChloraPrep after the patient was positioned supine with all bony prominences well padded. The previous total knee incision was reopened including the skin, subcutaneous layer, and mid vastus approach. The sutures were removed. Hematoma was encountered as would be expected immediately following TKA from earlier that day thorough irrigation normal saline was performed at this stage. We were subtly able to palpate the fracture deep to the periosteum is noted. C- arm fluoroscopic imaging confirmed the fracture to be unchanged from the immediate postoperative radiographs. Given the screw length needed, the 1 implant we had available to us at the time was a tight rope device. 2 separate tight ropes were placed in a divergent fashion to allow rotational control and compression across the fracture site. Following the fracture fixation, the knee was placed through range of motion, stressed with varus and valgus load, and extension flexion. It was found to be stable without evidence of displacement or instability. Again, thorough irrigation normal saline was performed followed by a 3 min Betadine soak performed. Finally, a final irrigation round with normal saline was performed. Closure performed with 0 PDS and #0 Stratafix for the quad tendon/retinaculum. 2-0 Vicryl/Stratafix for the subcutaneous and 4-0 Monocryl for subcuticular closure. Dressings were applied and the patient was awoken from anesthesia after the tourniquet deflated and transferred the PACU in stable condition. A skilled ex assistant/program director was critical for this case to aid in patient positioning, tissue retraction, bone exposure, limb manipulation/positioning, patient safety, and closure. PLAN: 1. Weight bear as tolerated operative extremity. 2. 23 hr perioperative antibiotics. 3. Ice. 4. PT/OT consults for ambulation assistance/mobility education. 5. Social work consult for discharge planning. 6. DVT prophylaxis with at [facility], Rajeev Red[place], and Jony given history of DVT in the last 1 year.
--- NOTE | 2022-11-27 14:31 | SUR.OPER ---
Verified Montse Flanagan charting complete.
== END 2022-11-20 13:35 | disposition home or self-care (01) ==
LOC: OR 10:36 → MEDSURG 10:38
PROVIDERS: PCP Family Medicine; Visit Provider Orthopaedic Surgery Sports Medicine
PROC: (CPT 27447; principal; 2022-11-19 12:30)
DX: M17.12 Unilateral primary osteoarthritis, left knee (principal); G89.18 Other acute postprocedural pain; I10 Essential (primary) hypertension; Z86.718 Personal history of other venous thrombosis and embolism; Z79.01 Long term (current) use of anticoagulants; G47.33 Obstructive sleep apnea (adult) (pediatric); F32.A Depression, unspecified; F41.9 Anxiety disorder, unspecified; E78.5 Hyperlipidemia, unspecified; D69.6 Thrombocytopenia, unspecified; M97.12XA Periprosthetic fracture around internal prosthetic left knee joint, initial encounter; M96.662 Fracture of femur following insertion of orthopedic implant, joint prosthesis, or bone plate, left leg
CPT/HCPCS: 27447; 27514; 1400; 1402; 36415; 64447; 64454; 73560; 76000; 76942; 82565; 84132; 84295; 84520; 85025; 97110; 97116; 97161; 97165; 97530; 97535; 99140; A9270; C1713; C1776; J0690; J1100; J2250; J2405; J2704; J2795; J3010; J7120

== ENCOUNTER 2022-12-26 08:15 | Outpatient (RCR) | payer MEDICARE, SELFPAY ==
--- NOTE | 2022-11-05 11:26 | PT.OPE ---
PT Dwarf Outpatient Eval PT [facility] Outpatient Eval Start: 11/05/22 10:35 Freq: Status: Active Protocol: Document 11/05/22 11:25 CJT (Rec: 11/05/22 11:26 CJT [id number]) E-signed By Buddy Arnold PT Physical Therapy Outpatient Evaluation Insurance Information Recert Due Date 02/03/23 Insurance Name [facility] Medical Diagnosis Z96.652 - L TKA Treating Diagnosis Z96.652 - L TKA Referring Tevin Mendoza MD Subjective Subjective Pt presents for L TKA pro-op evaluation. Pt has history of R TKA about 15 years ago and this knee is doing well. Pt has no questions or cocnerns for his upcoming surgery. Pt leaves for [place] on December 28. Pt lives in a split level house, 1 step to enter, no handrail. 7 steps up/down to multiple levels with handrail. Kitchen bathroom, bedroom all on one level. Pt lives with his spouse (Rosalva). She will be available to assist with pt when needed. Also lives with his sister who can help when needed. Pt has walk-in shower with no grab bars, has some stick-on grab bars ready to use. Standard corey toilet, has suction grab bars and raised seat that he can attach if needed. Pt has walker and cane available. Pain Comments 09/08 Date of Surgery (If applicable) 11/17/22 Current Work Status Retired Preferred Name Willie Morrison Therapy Limitations/Systems Review Not Limited Objective Other/Pertinent Objective R knee AROM: 0-128 L knee AROM: 3-0-135 B knee flexion: 5/5 MMT B knee extension: 5/5 MMT Assessment Assessment/Impression Patient presents for their pre -op therapy visit for L TKA scheduled for 11/19/22. Pre- surgical consultation was completed including education on expected post-surgical swelling/bruising/pain, appropriate use of pain medication, icing to reduce pain/swelling, exercises following surgery, therapy outcomes and safety in and outside his home. Pt completed several reps of each of the exercises issued in his post- TKA folder and shows good understanding of these. I did encourage the patient to practice all of these exercises at least two more times prior to surgery as well as read each of the pages on post-surgical expectations and safety and ambulation expectations following their surgery. All questions were answered to the patient's satisfaction. Skilled PT services are medically necessary to address deficits and return patient to highest level of function. Recommend physical therapy sessions 2 reducing to 1/week for 12 weeks, beginning __/__/2022. Pt agrees with this plan. Printout of HEP was given for I completion and pt gives verbal understanding of each exercise. Primary Functional Limitations Walking, stairs Plan of Care Rehabilitation Potential Excellent Physical Therapy Goals STG - To be completed in 2-3 weeks: 1. Pt will report consistent use of ice as well as elevation of surgical limb while resting to reduce inflammation and swelling. 2. Pt will demonstrate 90 degrees of knee flexion on surgical limb to reduce risk of contracture development and progress through rehabilitation as expected. 3. Pt to show appropriate use of all AD's with minimal gait deviations and no LOB with all ambulation to reduce risk of falls and restore normal gait mechanics. LTG - To be completed at time of discahrge: 1. Pt to be I with HEP so that they may I manage progression of symptoms. 2. Pt will demonstrate 120 degrees knee flexion on surgical limb so that they may descend steps without restrictions in ROM. 3. Pt will perform 10+ squats with good control over medial/ lateral deviation of knees to show improved functional strength to assist with transfers. 4. Pt will demonstrate 5/5 MMT knee flexion/extension of surgical limb to provide greater support to knee joint and allow for ease of ambulation. Treatment Plan/Direct Interventions Electrical Stimulation,Gait Training,Ice/Cold/ Vasopneumatic,Manual Therapy, Neuromuscular Re-ed,Self-Care/ Home Management,Therapeutic Activities,Therapeutic Exercises Frequency/Duration 2/week for 6 weeks - pt leaves for [place] on December 28 Patient Will Be Discharged From Therapy Completion of LTG(s),Skills Plateau,Independent w/HEP, Independently Progressing Evaluation Billing Untimed Code Treatment Minutes 45 PT Eval No Charge No Complexity Low Certification Information Initial Certification Date 11/05/22 Ending Certification Date 02/03/23 Provider Signature Shows Agreement With POC & Medical Necessity Physician Signature & Date Requested Please Sign/Date Here Physician Comment/Change : Physician NPI Number #
--- NOTE | 2022-12-17 16:43 | PT.OPDN ---
[facility] Daily Note PT [facility] Out[facility] Daily Note Start: 11/05/22 10:35 Freq: Status: Active Protocol: Document 12/17/22 09:15 CJT (Rec: 12/17/22 10:12 CJT [id number]) E-signed By Buddy Arnold, PT PT OP Daily Progress Note Visit Information Note Type Daily Note Visit Number 9 Insurance Authorized Visits 100 Physician Authorized Visits eval and treat Insurance Information Recert Due Date 02/03/23 Insurance Name [facility] Medical Diagnosis Z96.652 - L TKA Treating Diagnosis Z96.652 - L TKA Referring Tevin Mendoza MD Subjective Subjective Pt doing well. Has been sleeping fair this past week. Struggled to sleep last night. Happy with his progress in rehab so far. Continues to use CPM machine daily and this is helpful. Preferred Name Willie Precautions Treatment Precautions/Contraindications DOS: Home Exercise Home Exercise Comments post-op TKA protocol Objective Other/Pertinent Objective L knee AROM: 0-127 Patient Instructed in Risks/Benefits Yes Therapeutic Exercise Therapeutic Exercise Minutes (minutes) 46 Therapeutic Exercise: To Restore Bike - 10 minutes, (S8) Functional Status SLR with toe out 2 x 20 Hip abduction in S/L 2 x 15 ea Clamshell with light band 2 x 20 ea Knee extension stretch with OP x 3' TG Squats 2 x 30 SL knee flexion/extension on Marshallese ball x 20 Supine SL push into Marshallese ball 2 x 10, 10 Seated HS curl with light band 3 x 20 Manual Therapy Techniques Manual Therapy Minutes (minutes) 10 Manual Therapy Techniques STM/MFR to L quad, adductor bundle, ITB, posterior knee joint capsule, gastroc, soleus to reduce tissue tension and improve extensibility. Treatment Minutes Timed Code Treatment Minutes 56 Total Treatment Time 56 Billing Units Manual Therapy Units 1 Therapeutic Exercise Units 3 Assessment/Impression Assessment/Impression Willie has progressed very well during his time in therapy despite his circumstances with femoral fracture. His pain remains very well controlled, quad set is excellent and his ROM measures 0-127 degrees this date. Willie has no personal concerns at this time and is eager to return to full weight bearing when cleared by surgeon. Willie is set to leave for [place] on December 28 and is curious to know if he should change his flight to a later date. Recommend continued PT services to address deficits and return pt to highest level of function. Plan of Care Physical Therapy Goals STG - To be completed in 2-3 weeks: 1. Pt will report consistent use of ice as well as elevation of surgical limb while resting to reduce inflammation and swelling. MET 2. Pt will demonstrate 90 degrees of knee flexion on surgical limb to reduce risk of contracture development and progress through rehabilitation as expected. MET 3. Pt to show appropriate use of all AD's with minimal gait deviations and no LOB with all ambulation to reduce risk of falls and restore normal gait mechanics. MET LTG - To be completed at time of discahrge: 1. Pt to be I with HEP so that they may I manage progression of symptoms. 2. Pt will demonstrate 120 degrees knee flexion on surgical limb so that they may descend steps without restrictions in ROM. 3. Pt will perform 10+ squats with good control over medial/ lateral deviation of knees to show improved functional strength to assist with transfers. 4. Pt will demonstrate 5/5 MMT knee flexion/extension of surgical limb to provide greater support to knee joint and allow for ease of ambulation. Daily Plan of Care Continue per POC Recertification Information Provider Signature Shows Agreement With POC & Medical Necessity
== END 2022-12-31 14:51 | disposition home or self-care (01) ==
PROVIDERS: PCP Family Medicine; Visit Provider Orthopaedic Surgery Sports Medicine
DX: M17.12 Unilateral primary osteoarthritis, left knee (principal); Z96.652 Presence of left artificial knee joint; S62.609A Fracture of unspecified phalanx of unspecified finger, initial encounter for closed fracture; Z98.890 Other specified postprocedural states; Z51.89 Encounter for other specified aftercare
CPT/HCPCS: 97016; 97032; 97110; 97116; 97140; 97161; 97164

== ENCOUNTER 2023-09-21 13:14 | Outpatient (CLI) | payer MEDICARE, SELFPAY ==
--- OUTSIDE RECORDS SUMMARY | 2023-09-21 13:22 | XMS_ITS | Continuity of Care Document ---
Author Organization [facility] Address [address] [place] [address] [address] [place] [address] Phone Care Team Providers Care Corporate Wellness Coordinator Name Role Phone Unavailable Unavailable Unavailable Procedures Procedure Date Office/outpatient visit,[facility] 2010 X-ray exam lower spine 2-3 views 2010 Advance Directives Directive Yes / No Effective Date File Name No Information Encounters Encounter Description Practice Location Reason(s) For Visit Diagnoses Date Provider Providers Copied on Encounter [facility], [address] [place] [address], [facility], tel:[phone] [employer] No Information No Information Office/outpat ient visit,[facility], [facility] [place], [place] [facility], [address], [facility], tel:[phone] [employer] [facility] No Information Mehbod Amir. [facility], [address], [id number], . tel:[phone] Family History Family Member Type Diagnosis Age At Onset No Information Payers Payer name Insurance type Covered libertarian ID Authorvirgilioa sara(s) [facility] [id number] Social History Type Description Quantity Date Captured [...]
--- OUTSIDE RECORDS SUMMARY | 2023-09-21 13:22 | XMS_ITS | Data Portability ---
Author Organization [facility], [facility] Address [address] [facility] [facility] [address] [place] [address] Care Team Prov[address] Care Court Stenographer Name Role Phone [facility] Primary Care Provider Assessment No assessment recorded. Plan of Treatment Reminders Order Date Submit Date Provider Last Modified By Organization Details Last Modified Time Details Appointments None recorded. Lab PSA, serum or plasma [address], [address] [place], [address], 3 15:41:27 PSA, serum or plasma [address], [address] [place], [address], 4 08:30:20 urinalysis, dipstick [address], [address] [facility], [address], [place], [address], 3 09:13:26 PSA, serum or plasma 2023 025 [email or web address] Not available 4 17:38:25 PSA, serum or plasma [address], [address] [place], [address], 4 08:30:20 Referral None recorded. Procedures None recorded. Surgeries None recorded. Imaging MRI, prostate, w/wo contrast 2022 023 [facility], [address], [place], [address], 3 09:17:50 Medication Orders finasteride 5 mg tablet 2022 023 [facility] [address], [address] [place], [address], 3 09:34:21 finasteride 5 mg tablet 2023 024 [facility] [address], [address] [place], [address], 4 15:43:18 Patient TargetsNo targets recorded. Patient InstructionsNo instructions recorded. Reason for Referral None Reported. Results Created Date Observation Date Name Description Value Unit Range Abnormal Flag LastModifiedBy Organization Detail LastModifiedTime 09/05/1909/04/2022 PSA, serum or plasm a PSA 5.8 0-4.0 Not Available [facility] [address], [place], [address], 09/04/2022 15:41:07 10/30/1910/29/2022 urina lysis , dipst ick Color-Status Yellow Not Available [facility] [address] [facility] [address] [facility], [place], [address], 10/29/2022 09:12:49 10/30/19 23 10/29/2022 urina lysis , dipst ick Clarity-Stat us Clear Not Available [facility] [address] [facility] [address], [place], [address], 10/29/2022 09:12:49 10/30/19 23 10/29/2022 urina lysis , dipst ick Glucose-Stat us Negati ve Not Available [address], [place], [address], 10/29/2022 09:12:49 10/30/19 23 10/29/2022 urina lysis , dipst ick Bilirubin-St atus Negati ve Not Available [address], [place], [address], 10/29/2022 09:12:49 10/30/19 23 10/29/2022 urina lysis , dipst ick Ketones-Stat us Negati ve Not Available [address], [place], [address], 10/29/2022 09:12:49 10/30/19 23 10/29/2022 urina lysis , dipst ick Sp Yantic-Stat us >=1.03 0 Not Available [address], [place], [address], 10/29/2022 09:12:49 10/30/19 23 10/29/2022 urina lysis , dipst ick pH-Status 5.5 Not Available [address], [place], [address], 10/29/2022 09:12:49 10/30/1910/29/2022 urina lysis , dipst ick Urobilinogen -Status 0.2 Not Available [address], [place], [address], 10/29/2022 09:12:49 10/30/19 23 10/29/2022 urina lysis , dipst ick Nitrates-Sta tus negati ve Not Available [place] [address], [place], [address], 10/29/2022 09:12:49 10/30/19 23 10/29/2022 urina lysis , dipst ick Blood-Status Modera te Not Available [address], [place], [address], 10/29/2022 09:12:49 10/30/19 23 10/29/2022 urina lysis , dipst ick Leuko-Status Negati ve Not Available [address], [place], [address], 10/29/2022 09:12:49 09/11/1909/09/2022 MRI, prost ate, w/wo contr ast PHYSIC JODI ALERT EXAM: MR PELVIS PROSTA TE wwo CONTRA ST LOCATI ON: [facility] [place] DATE: 023 INDICA TION: Elevat ed prosta te specif ic antige n. COMPAR HAFSA: None. PSA: 5.8 ng/ml TECHNI QUE: Examin ation was perfor med with high-r esolut ion T1 axial, T2 axial, T2 FSE sagitt al and T2 FSE dickinson l images obtain ed throug h the prosta te gland and semina l vesicl es. Diffus ion images were obtain ed in the axial plane. Contra st was inject ed with dynami c enhanc ed images of the prosta te gland in the axial plane. Images were analyz ed using a [email or web address] te workst ation with CAD and 3D post proces sing for prosta te volume contou ring and segmen tation . CONTRA ST: [address] FINDIN GS: The image qualit y is satisf actory . PROSTA TE: Volume 158 mL. PERIPH ERAL ZONE: No suspic ious lesion s. Linear T2 hypoin tensit ies withou t signif icant corres pondin g restri cted diffus ion, likely sequel a of prosta titis. Probab le extrud ed BPH nodule on the right. CENTRA L GLAND: No suspic ious lesion . Nodula r enlarg ement compat ible with benign prosta tic hyperp lasia. Protru enrrique into the bladde r base. LOCAL STAGIN G: Semina l Vesicl es: Unrema rkable . Extrac apsula r Extens ion: Not applic able. Neurov ascula r Bundle Invasi on: Not applic able. Other Organ Invasi on: Not applic able. BLADDE R: T2 hypoin tense nodula rity with enhanc ement along the left latera l bladde r wall. LYMPH NODES: No pathol ogical ly enlarg ed lymph nodes. A couple of promin ent perive sical lymph nodes measur ing up to 7 mm short axis. BONES: No aggres sive osseou s lesion s. Anteri or abdomi nal wall hernia repair with mesh. OTHER: Coloni c divert iculos is. IMPRES ENRRIQUE: 1. No suspic ious prosta te lesion . 2. BPH. Prosta te volume 158 mL. 3. Small nodula r foci with enhanc ement along the left bladde r wall. Appear ance is nonspe cific but is suspic ious for bladde r neopla sm. Consid er CT urogra m and/or cystos copy. OVERAL L ASSESS MENT: PI-RAD S 2-Low (clini brianna signif icant cancer is unlike ly to be presen t). This report was electr onical ly interp reted by: DR. DONOVAN SILVER M.D. [email or web address] [place] [address] [facility] [address] [place] [address] [facility] [address], [place], [address], 09/10/2022 16:12:50 Result Notes None recorded. Problems Name Status Onset Date Resolution Date Notes Provider Name and Address Organization Details Recorded Time Clinical finding Active 016 N20.0 : Staghorn calculus Not Available [facility] 08/10/2019 23:48:51 Jairo hematuria Active 016 R31.0 : Jairo hematuria Not Available [facility] 08/10/2019 23:48:51 Prostate specific antigen above reference range Active 023 Shine Thomason MD [address] [facility],[address], [place], [address], [facility] 09/04/2022 16:08:56 Lower urinary tract symptoms due to benign prostatic hypertrophy Active 023 Shine Thomason MD [address] [facility],[address], [place], [address], [facility] 09/04/2022 16:08:59 Problem Notes None recorded. Procedures Surgical History Date Name Laterality Status Provider Name and Address Organization Details Recorded Time 07/13/19 24 COMPLEX VISIT completed Shine Thomason MD [address] [facility],[address], [place], [address], [facility] 07/13/2023 17:37:35 07/13/19 24 [facility] 15:05:37 10/30/19 23 Cystoscopy- male completed Shine Thomason MD [address] [place] [address],[address], [place], [address], [facility] 10/29/2022 09:31:25 03/02/19 17 Colonoscopy completed Shirlene gallo [facility] 07/13/2023 15:06:16 04/03/19 16 Us urine capacity measure completed Not Available [facility] 08/11/2019 17:28:18 04/03/19 16 Cystoscopy completed Not Available [facility] 0 17:28:18 04/03/19 14 Total knee arthroplasty completed Not Available [facility] 08/11/2019 17:28:18 Imaging Results Imaging Date Name Status LastModified by Organiz ation Details LastModified Time 09/09/2022 MRI, prostate, w/wo contrast completed [email or web address] [place] [facility] [address] [facility] [address], [place], [address], 09/10/2022 16:12:50 Procedure Notes None recorded. Medical Equipment None Reported. Allergies No known drug allergies Medications Name Sig Start Date Stop Date Status Note LastModified by Organization Details LastModified Time acetaminoph en 500mg cap TAKE 1 TO 2 CAPSULES BY MOUTH EVERY 6 HOURS NEEDED . DO NOT EXCEED 4000 MG OF ACETAMINO PHEN PER 24 HOURS 07/12 completed Not Available Not Available Not Available losartan 50 mg tablet TAKE 1 TABLET BY MOUTH ONCE DAILY 07/12 completed Not Available Not Available Not Available amoxicillin 500 mg capsule TAKE FOUR CAPSULES BY MOUTH ONE HOUR BEFORE APPOINTME NT active Not Available Not Available No t Available pramipexole 1 mg tablet TAKE 1 TABLET BY MOUTH IN THE EVENING . APPOINTME NT REQUIRED FOR FUTURE REFILLS active Not Available Not Available No t Available carvedilol 6.25 mg tablet TAKE 1 TABLET BY MOUTH TWICE DAILY WITH FOOD active Not Available Not Available No t Available atorvastati n 20 mg tablet TAKE 1 TABLET BY MOUTH ONCE DAILY active Not Available Not Available No t Available trazodone 50 mg tablet TAKE 1 TABLET BY MOUTH ONCE DAILY NEEDED FOR INSOMNIA 07/12 completed Not Available Not Available Not Available meloxicam 15 mg tablet 07/12 completed Not Available Not Available Not Available metoprolol succinate ER 100 mg tablet,exte nded release 24 hr TAKE 1 TABLET BY MOUTH ONCE DAILY 07/12 completed Not Available Not Available Not Available penicillin V potassium 500 mg tablet TAKE TABLET BY MOUTH 4 TIMES DAILY UNTILL GONE 07/12 completed Not Available Not Available Not Available amoxicillin 500 mg tablet TAKE FOUR TABLETS BY MOUTH ONE HOUR BEFORE APPOINTME NT active Not Available Not Available No t Available tamsulosin 0.4 mg capsule TAKE 2 CAPSULES BY MOUTH ONCE DAILY active Not Available Not Available No t Available losartan 100 mg tablet TAKE 1 TABLET BY MOUTH ONCE DAILY active Not Available Not Available No t Available fluoxetine 20 mg capsule TAKE 1 CAPSULE BY MOUTH ONCE DAILY . APPOINTME NT REQUIRED FOR FUTURE REFILLS active Not Available Not Available No t Available sertraline 50 mg tablet TAKE 1 TABLET BY MOUTH ONCE DAILY 07/12 completed Not Available Not Available Not Available finasteride 5 mg tablet Take 1 tablet every day by oral route. active Not Available Not Available No t Available oxycodone 5 mg tablet TAKE 1/2 TO 1 (ONE-HALF TO ONE) TABLET BY MOUTH EVERY 4 TO 6 HOURS NEEDED FOR PAIN. MAX OF 6 TABLETS PER 24 HOURS . TAKE NEEDED FOR POST-OP PAIN: 2.5MG FOR MILD PAIN, 5MG FOR MODERATE- SEVERE PAIN, WEAN TOLERATED . 07/12 completed Not Available Not Available Not Available bupropion HCl XL 300 mg 24 hr tablet, extended release TAKE 1 TABLET BY MOUTH ONCE DAILY active Not Available Not Available No t Available hydrochloro thiazide 12.5 mg tablet TAKE 1 TABLET BY MOUTH ONCE DAILY active Not Available Not Available No t Available GaviLyte-G 236 gram-22.74 gram-6.74 gram-5.86 gram oral solution TAKE 240MLS BY MOUTH EVERY 10 MINUTES UNTIL FECAL EFFLUENT IS CLEAR 09/04 completed Not Available Not Available Not Available Eliquis 5 mg tablet TAKE 1 TABLET BY MOUTH TWICE DAILY 07/12 completed Not Available Not Available Not Available Stimulant Laxative Plus 8.6 mg-50 mg tablet TAKE 1 TO 4 TABLETS BY MOUTH TWICE DAILY NEEDED FOR CONSTIPAT ION . HOLD MEDICATIO N IF EXPERIENC ING LOOSE STOOLS 07/12 completed Not Available Not Available Not Available Eliquis DVT-PE Treatment 30-Day Starter 5 mg (74 tablets) in dose pack FOLLOW PACKAGE DIRECTION S. 07/12 completed Not Available Not Available Not Available Vitals Date Recorded Body weight Body mass index (BMI) Body height Provider Name and Address Organization Details Last Updated DateTime 09/04/2022 04859.36 g 31.7 kg/m2 175.26 cm Shirlene KINSEY [facility] 09/04/2022 15:02:02 Date Recorded Body height Body mass index (BMI) Body weight Provider Name and Address Organization Details Last Updated DateTime 10/29/2022 175.26 cm 31.7 kg/m2 58353.36 g Shirlene [facility] 10/29/2022 09:03:19 Date Recorded Body height Body mass index (BMI) Body weight Provider Name and Address Organization Details Last Updated DateTime 07/13/2023 175.26 cm 31.7 kg/m2 83768.36 g Shirlene [facility] 07/13/2023 15:06:58 Social History Question Answer Notes LastModified by Organizat ion Details LastModified Time Tobacco Smoking Status Never Smoker Not Available [facility] 08/11/2019 02:47:02 What Is Your Level Of Alcohol Consumption? Occasional [email or web address] Information not available 09/04/2022 How Many Times Per Week Do You Consume Alcohol? Less Than 1 Time Per Week [email or web address] Information not available 09/04/2022 What Is Your Level Of Caffeine Consumption? Occasional [email or web address] Information not available 09/04/2022 Race White Information n ot available 08/11/2019 Marital Status Informati on not available 08/11/2019 What Was The Date Of Your Most Recent Tobacco Screening? 07/13/2023 [email or web address] Information not available 07/13/2023 Have You Ever Been Counseled For Unhealthy Alcohol Use? No [email or web address] Information not available 09/04/2022 Do You Use Any Illicit Or Recreational Drugs? No [email or web address] Information not available 09/04/2022 Has Tobacco Cessation Counseling Been Provided? No [email or web address] Information not available 09/04/2022 Do You Or Have You Ever Used Any Other Forms Of Tobacco Or Nicotine? No [email or web address] Information not available 09/04/2022 How Many Days In The Past Year Have You Consumed 5 Or More Drinks? 0 [email or web address] Information no t available 07/13/2023 Sex: Unknown Functional Status None recorded. Mental Status None recorded. Family History Relationship Description Onset Age of this Age Resolved Age Notes Notes:Bladder Cancer:Father Cancer, colon:Mother Arthritis:Father Hypertension:Mother Medical History Condition Response Sexually Transmitted Infection N Diabetes N Bleeding Disorder Y High Blood Pressure Y Kidney Stones N Cancer N Depression N Lung Disease N High Cholesterol N GERD/Acid Reflux N Heart Disease N Immunizations Vaccine Type Date Status Provider Name and Address Organization Details Recorded Time zoster recombinant 08/27/2018 completed Shirlene gallo [facility] 09/04/2022 15:02:07 zoster recombinant 11/09/2018 completed Shirlene gallo [facility] 09/04/2022 15:02:07 COVID-19, mRNA, LNP-S, PF, 30 mcg/0.3 mL dose 07/09/2020 completed Shirlene gallo [facility] 09/04/2022 15:02:07 COVID-19, mRNA, LNP-S, PF, 30 mcg/0.3 mL dose 07/31/2020 completed Shirlenejune null, [facility] 09/04/2022 15:02:07 COVID-19, mRNA, LNP-S, PF, 30 mcg/0.3 mL dose 02/22/2021 completed Shirlenejune null, [facility] 09/04/2022 15:02:07 COVID-19, mRNA, LNP-S, PF, 30 mcg/0.3 mL dose, bailee-sucrose 07/09/2021 completed June null, [facility] 09/04/2022 15:02:07 pneumococcal polysaccharide PPV23 08/21/2022 completed June null, [facility] 09/04/2022 15:02:07 Tdap 05/02/2010 completed June null, [facility] 09/04/2022 15:02:07 Pneumococcal conjugate PCV 13 07/09/2021 completed June null, [facility] 09/04/2022 15:02:07 Td (adult), 2 Lf tetanus toxoid, preservative free, adsorbed 07/23/2020 completed June null, [facility] 09/04/2022 15:02:07 Past Encounters Encounter ID Performer Location Encounter Start Date Encounter Closed Date Diagnosis/Indication Diagnosis SNOMED-CT Code [id number] Shine Thomason MD [address] [place] [address] 09/04/2022 14:34:30 09/10/2022 09:17:50 Prostate specific antigen above reference range [id number] Lower urin elmer tract symptoms due to benign prostatic hypertrophy [id number] [facility] [address] [facility] [place] [address] 10/29/2022 09:02:24 11/05/2022 12:37:30 Lower urinary tract symptoms due to benign prostatic hypertrophy [id number] Prostate s pecific antigen above reference range [id number] [facility] [address] [facility],[address] [place] [address] 07/13/2023 14:53:06 07/14/2023 13:35:00 Prostate specific antigen above reference range 219443615 Lower urin elmer tract symptoms due to benign prostatic hypertrophy [id number] Health Concerns Section Related Observation LastModified by Organization Detai ls LastModified Time None Recorded Concern Status LastModified by Organization Details LastModified Time None Recorded Advance Directives Directive None Recorded Payers Encounter Date Sequence Insurance Name Policy Number Policy Corcoran Covered Member ID Corcoran Member ID Guarantor Name 09/04/2022 1 [facility] [id number] Mukul D Vought [id number] Mukul D Vought 10/29/2022 1 [facility] [id number] Mukul D Vought [id number] Mukul D Vought 07/13/2023 1 [facility] [id number] Mukul D Vought [id number] Mukul D Vought Notes Date Note Type Note Provider Name and Address Organization Details Recorded Time 09/04/2022 text/html HPI Notes: New patient referred for elevated PSA and LUTS. Recent PSA at [facility] on 07/21/2022 was 4.8. Recheck PSA today in our clinic is 5.8. No family history of prostate cancer. He has long-term weak stream, nocturia x2 and postvoid dribbling. He takes tamsulosin 0.8 mg daily. He is on Eliquis for left DVT started about 2 months ago. Shine Thomason MD [address] [place] [address],[address], [place], [address], [facility] 09/04/2022 16:09:46 10/29/2022 text/html HPI Notes: 3: New patient referred for elevated PSA and LUTS. Recent PSA at [facility] on 07/21/2022 was 4.8. Recheck PSA today in our clinic is 5.8. No family history of prostate cancer. He has long-term weak stream, nocturia x2 and postvoid dribbling. He takes tamsulosin 0.8 mg daily. He is on Eliquis for left DVT started about 2 months ago. 10/29/22: Prostate MRI on 09/09/2022 shows 158 cm?? prostate with no suspicious lesions. There was hypointense nodularity with enhancement in the left lateral bladder wall. He presents today for further evaluation with cystoscopy. AUA symptom score 21, bother 3. Most bothersome symptoms are intermittency, weak stream and postvoid dribbling. He remains on Eliquis for DVT. Shine Thomason MD [address] [place] [address],[address], [address], [facility] 10/29/2022 09:35:27 07/13/2023 text/html HPI Notes: 3: New patient referred for elevated PSA and LUTS. Recent PSA at [facility] on 07/21/2022 was 4.8. Recheck PSA today in our clinic is 5.8. No family history of prostate cancer. He has long-term weak stream, nocturia x2 and postvoid dribbling. He takes tamsulosin 0.8 mg daily. He is on Eliquis for left DVT started about 2 months ago. 10/29/22: Prostate MRI on 09/09/2022 shows 158 cm?? prostate with no suspicious lesions. There was hypointense nodularity with enhancement in the left lateral bladder wall. He presents today for further evaluation with cystoscopy. AUA symptom score 21, bother 3. Most bothersome symptoms are intermittency, weak stream and postvoid dribbling. He remains on Eliquis for DVT. 07/13/23: He is doing well on finasteride and long-term tamsulosin. No bothersome side effects. AUA symptom score 10, bother 2. PSA today is pending. Postvoid residual 50 mL. Shine Thomason MD [address] [facility],[address], [place], [address], [facility] 07/13/2023 17:38:40
--- OUTSIDE RECORDS SUMMARY | 2023-09-21 13:22 | XMS_ITS | Continuity of Care Document ---
Author Organization [facility] Address [address] [place] [address] Phone Care Team Providers Care Bun Panner Name Role Phone Evelyn Mcwilliams MD Unavailable Unavailable Allergies, Adverse Reactions, Alerts Substance Reaction Status Criticality No Known Allergies Active No Inform ation Medications Medication Instructions Dosage Effective Dates (start - stop) Status Comments carvedilol 6.25 mg tablet take 1 tablet by oral route 2 times every day with food 6.25 MG - Active losartan 100 mg tablet take 1 tablet by oral route every day 100 MG - Active hydrochlorothiazide 12.5 mg tablet take 1 tablet by oral route every day 12.5 MG - Active atorvastatin 20 mg tablet take 1 tablet by oral route every day 20 MG - Active bupropion HCl XL 300 mg 24 hr tablet, extended release take 1 tablet by oral route every day 300 MG - Active Procedures Procedure Date OFFICE/OUTPATIENT VISIT, EST TTE W/DOPPLER, COMPLETE OFFICE/OUTPATIENT VISIT, NEW ELECTROCARDIOGRAM, COMPLETE Advance Directives Directive Yes / No Effective Date File Name No Information Encounters Encounter Description Practice Location Reason(s) For Visit Diagnoses Date Provider Providers Copied on Encounter OFFICE/OUTPA TIENT VISIT, EST [facility], [address], [place], [address], [place] tel:[phone] [facility] [address] Follow up (chief complaint) HTNCardiac murmur, unspecified 4 Poppy Rivas. [address], [address], [place], [place], [id number] , [place]. tel:[phone] Referring Provider: Simona Haile E [address], [place], [address]. tel:[phone] [facility], [address], [address], [place] tel:[phone] [facility] Cardiac murmur, unspecifiedEsse ntial (primary) hypertension 4 Poppy Rivas. [address], [address] [place] [address], [id number] , [place]. tel:[phone] Referring Provider: Simona Haile E [address], [place], [address]. tel:[phone] [facility], [address], [address], [place] tel:[phone] 43 [facility] No Information 4 Sandy Gimenez. [address] [facility], [address] [facility], [place], [place], [id number] , [place]. tel:[phone] OFFICE/OUTPA TIENT VISIT, NEW [facility], [address], [address], [place] tel:[phone] 43 [facility] New patient (chief complaint) Body mass index [BMI] 31.0-31.9, adultHTNCardiac murmur, unspecified 4 Poppy Rivas. [address], [address] [place] [address], [id number] , [place]. tel:[phone] Referring Provider: Simona Haile E [address], [place], [address]. tel:[phone] Family History Family Member Type Diagnosis Age At Onset Problem Family history of Cancer, co samuel Problem Family history of Cancer, bl adder Problem Family history of Hypertensi on Payers Payer name Insurance type Covered republican ID Authoriza tion(s) [employer] Medicare A dvantage PPO CI [id number] Social History Type Description Quantity Date Captured Comments Alcohol Use Details Unknown Caffeine Use Details Unknown Tobacco Use Status Current non-smoker Smoking Status Never smoker Non-Smoking Tobacco Use Details : No Details Available : No Details Available Sex Male Vital Signs Date / Time: Height Weight BMI Pulse Rate Blood Pressure Temperature Respiratory Rate Body Surface Area Head Circumference Head Circ. Percentile Wt./Zheng. Percentile BMI percentile Pulse Ox Inhaled Ox 3:55 PM 70.00 in 95.073 kg (209.60 lbs) 30.0 7 kg/m eter (2) 76 /min 138/82 mm[Hg] 16 /min 2.17 meter(2) 97 % Chief Complaint And Reason For Visit From encounter dated '06/11/2023 16:00'. Follow up (chief complaint). Description: 67M referred for evaluation of hypertension. He was referred for an echocardiogram which was unremarkable. He continues to feel well and denies any symptoms.Brought his blood pressure log and refer review, he says he is stopped checking because his blood pressures has been normal for quite some time now. Reason For Referral Reason For Referral No Information Plan Of Treatment Date Type Action Status Goal Lifestyle educat ion regarding diet completed Future Order: Radiology Order Ec hocardiogram, Complete Transthoracic (50662), Ordered on: Ordered History Of Present Illness Encounter Date Complaint History Of Prese nt Illness Follow up 67M referred for evaluation of hypertension. He was referred for an echocardiogram which was unremarkable. He continues to feel well and denies any symptoms. Brought his blood pressure log and refer review, he says he is stopped checking because his blood pressures has been normal for quite some time now. New patient 67M referred for evaluation of hypertension.He says he was at high blood pressure for about 5-10 years and it has typically been pretty erratic. Says he has been under great control but he also occasionally gets low blood pressure says he also occasionally gets lightheaded and dizzy. Denies any chest pain or shortness of breath. He is fairly active, exercises and plays pickleball etc. 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 Functional Status Date Functional Assessmen t No Information Instructions Date Instruction Additional Infor yelena Given Exercise Guidelines Lifestyle education regarding di et Related to Body mass index [BMI] 31.0-31.9, adult Assessments Type Assessment Date assessment HTN assessment Cardiac murmur, unspecified Patient Care Teams Name Effective Dates (start - stop) Status Members No Information
--- OUTSIDE RECORDS SUMMARY | 2023-09-21 13:23 | XMS_ITS | Clinical Summary ---
Author Organization [facility] Address [place], [place] [address] Care Team Providers Care Security Installer Name Role Phone Pcp, No Primary Care Provider Unavailabl e Allergies No known active allergies Medications Medication Sig Dispensed Refills Start Date End Date Status metoprolol (LOPRESSOR) 100 mg tablet Take 1 tablet by mouth 2 times daily. 0 11/28/2009 Active tamsulosin (FLOMAX) 0.4 mg capsule Take 1 capsule by mouth once daily after a meal. 0 11/28/2009 Active buPROPion XL (WELLBUTRIN XL) 300 mg tablet Take 1 tablet by mouth every morning. 0 11/28/2009 Active losartan (COZAAR) 50 mg tablet Take 1 tablet by mouth once daily. 0 11/28/2009 Active predniSONE (DELTASONE) 20 mg tabletIndications:Low back pain radiating to left leg Take 1 tablet by mouth. take 2 tabs daily for 3 days, then 1 tab daily for 3 days, then 1/2 tab daily for 4 days. 11 tablet 0 04/11/2010 Active pramipexole (MIRAPEX) 0.25 mg tablet Take 1 tablet by mouth at bedtime. 0 12/19/2014 Active Active Problems Problem Noted Date Diagnosed Date Adenomatous colon polyp 12/20/2014 Overview: Colonoscopy 11/2014 polyp repeat in 5 years Colonoscopy 07/2020 polyp, repeat in 7 years Spinal stenosis, lumbar megan on, without neurogenic claudication 07/08/2010 Back pain 05/02/2010 Overview: April 2009: MRI Lumbar spine on 04/20/10: Facet degeneration and hypertrophy, with central canal stenosis, and developmental spinal canal narrowing, and disc bulging. L5-S1 transforaminal SHANE by Dr. Richards on 05/07/10. ~ May 2010: L4-5 left interarticular facet joint injection with aspiration by Dr. Richards. HTN (hypertension) 11/28/2009 DEPRESSION 12/10/2001 RESTLESS LEG SYNDROME 12/10/2001 BURSITIS NOS 03/10/2001 Encounters Date Type Department Care Team Description 07/13/2023 2:48 PM CDT - 07/13/2023 11:59 PM CDT Hospital En[facility] [address] [facility] [place] [address] 07/13/[address] [facility] [address] [facility] [place] [address] Shine Thomason MD 07/13/2023 Travel from Last 3 Months Immunizations Name Administration Dates Next Due Tdap 05/02/2010 Family History Medical History Relation Name Comments Genetic Other Mother had HTN and colon cancer dx at age 70. ~There is no hx of DM, CAD, or prostate cancer. Relation Name Status Comments Other Social History Tobacco Use Types Packs/Day Years Used Date Smoking Tobacco: Never Smokeless Tobacco: Never Alcohol Use Standard Drinks/Week Comments Yes 0 (1 standard drink = 0.6 oz pure alcohol) Alcoholic Drinks/day: infrequent <2 per month Sex and Gender Information Value Date Recorded Sex Assigned at Not on file Gender Identity Not on file Sexual Orientation Not on file Obstetrics History Last Filed Vital Signs Vital Sign Reading Time Taken Comments Blood Pressure 109/73 12/19/2014 11:48 AM CDT Pulse 60 12/19/2014 11:48 AM CDT Temperature 36.9 ??C (98.4 ??F) 11/28/2009 5:56 PM CD T Respiratory Rate 16 09/13/2002 12:00 AM CDT Oxygen Saturation 98% 12/19/2014 11:48 AM CDT Inhaled Oxygen Concentration - - Weight 88 kg (194 lb) 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 Height 176.5 cm (5' 9.5) 04/11/2010 12:07 PM CS T Body Mass Index 28.24 04/11/2010 12:07 PM 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 Plan of Treatment Health Maintenance Due Date Last Done Comments Depression screening for age 12+ 1967 BMI (ht and wt on same day) for age 18+ 07/11/1973 Hepatitis C screening for ag e 18-79 07/11/1973 Zoster (shingles) series for age 50+ (1 of 2) 07/11/2005 Lipids for age 45-75 06/14/2008 06/15/2003, 06/15/2003, 12/10/2001, Additional history exists Tetanus booster 05/02/2020 05/02/2010 Medicare Wellness for age 65+ 07/11/2020 Pneumococcal series for age 65+ (1 of 1 - PCV) 07/11/2020 COVID-19 vaccine series (2022- season) 2022 07/09/2021, 02/22/2021, 07/31/2020, Additional history exists Influenza for age 65+ 11/01/2023 Colonoscopy through age 75 08/31/202708/30, 08/30/2020, 12/19/2014, Additional history exists Tdap Completed 05/02/2010 Procedures Procedure Name Priority Date/Time Associated Diagnosis Comments PSA TOTAL (DIAGNOSTIC) Routine 07/13/2023 2:57 PM CDT Elevated prostate specific antigen (PSA) COLONOSCOPY 08/30/2020 7:34 AM CDT CHOLESTEROL,TOTAL Routine 06/15/2003 8:4 1 AM CDT from Last 3 Months or Most Recently Relevant to Health Maintenance Results * PSA TOTAL (DIAGNOSTIC) (07/13/2023 2:57 PM CDT) PSA TOTAL (DIAGNOSTIC) 3.92 <4.00 ng/mL 07/13/2023 8:52 PM CDT [facility] [employer] [facility] Blood BLOOD SPECIMEN / Unknown Venipuncture / Unknown 07/13/2023 2:57 PM CDT 07/13/2023 2:58 PM CDT Narrative [facility] - 07/13/2023 8:52 PM CDT The test method changed on 08/26/2022. If this test has been used for serial monitoring, rebaselining is recommended. Rebaselining consists of 2 measurements, collected 3-6 weeks apart. The [employer] total PSA assay is an electrochemiluminescence immunoassay ECLIA performed on the [employer] Charly e immunoassay analyzers. Values obtained with different assay methods may be different and cannot be used interchangeably. Shine Thomason MD CHEMISTRY [facility] [address] [place] [address], * COLONOSCOPY (08/30/2020 7:34 AM CDT) 08/30/2020 7:34 AM CDT Narrative Transcriptions Sid Ramirez MD - 08/30/2020 8:25 AM CDT Patient Name: Mukul Castillo Procedure Date: 08/30/2020 Gender: Male Date of : 1955 Admit Type: Outpatient Procedure: Colonoscopy Proceduralist: Sid Ramirez MD , Kera Mccallum (Nurse) Indications/Pre-Op Diagnosis: Surveillance: Personal history ofadenomatous polyps on last colonoscopy > 5 years ago,Last colonoscopy: November 2014 Medications: Fentanyl 100 micrograms IV, Midazolam 2 mgIV, The level of sedation administered wasmoderate Procedure Description: The patient had risks, benefits and alternatives explained to andgave informed consent. The patient had a stable cardiopulmonary status and judged an adequate candidate for conscious sedation. The PCF-Q290AL [id number] was passed through the anus and advanced tothe cecum, identified by appendiceal orifice and ileocecal valve. The colonoscopy was performed without difficulty. The patient toleratedthe procedure well. The quality of the bowel preparation was good. The ileocecal valve, appendiceal orifice, and rectum were photographed. Complications: No immediate complications. Estimated Blood Loss & Specimen: Estimated blood loss: none. Specimen collected - Yes and sent to Laboratory Findings: A 3 mm polyp was found in the sigmoid colon. The polyp was sessile.The polyp was removed with a cold snare. Resection and retrieval were complete. A 2 mm polyp was found in the rectum. The polyp was sessile. Thepolyp was removed with a cold snare. Resection and retrieval werecomplete. A few small-mouthed diverticula were found in the sigmoid colon and descending colon. The exam was otherwise without abnormality on direct and retroflexion views. Impressions/Post-Op Diagnosis: - One 3 mm polyp in the sigmoid colon, removed with a cold snare. Resected and retrieved. - One 2 mm polyp in the rectum, removed with a cold snare. Resectedand retrieved. - Diverticulosis in the sigmoid colon and in the descending colon. - The examination was otherwise normal on direct and retroflexionviews. Recommendation: - Patient has a contact number available for emergencies. The signsand symptoms of potential delayed complications were discussed with the patient. Return to normal activities tomorrow. Written discharge instructions were provided to the patient. - Resume previous diet. - Continue present medications. - Repeat colonoscopy is recommended. The colonoscopy date will be determined after pathology results from today's exam become available for review. Moderate Sedation: Moderate (conscious) sedation was administered by the endoscopy nurse and supervised by the endoscopist. The following parameters were monitored: oxygen saturation, heart rate, respiratory rate, blood pressure, adequacy of pulmonary ventilation and reponse to care. Please refer to the patient's medical record flowsheets and nursing notes for moderate sedation details. Total physician intraservice time was 18 minutes. Sid Ramirez MD 08/30/2020 8:25:54 AM This report has been signed electronically. Note Initiated On: 08/30/2020 7:34 AM Procedure Code(s): --- Professional --- 53678, Colonoscopy, flexible; with removalof tumor(s), polyp(s), or other lesion(s) bysnare technique Diagnosis Code(s): --- Professional --- Z86.010, Personal history of colonicpolyps K63.5, Polyp of colon K62.1, Rectal polyp K57.30, Diverticulosis of large intestine without perforation or abscess withoutbleeding CPT copyright 2020 [employer]. All rights reserved. The codes documented in this report are preliminary and upon tanning wheel filler reviewmay be revised to meet current compliance requirements. Scope In: 8:02:48 AM Scope Withdrawal Time 0 hours 10 minutes 46 seconds Scope Out: 8:19:01 AM Sid Ramirez MD PROCEDURE ORD * (ABNORMAL) CHOLESTEROL,TOTAL (06/15/2003 8:41 AM CDT) CHOLESTEROL,TOT AL 216(H) 110 - 199 mg/dL 06/15/2003 8:41 AM CDT Narrative 08/12/2003 3:31 AM CDT Ordered by an unspecified provider. Other Clinical Staff CHEMISTRY from Last 3 Months or Most Recently Relevant to Health Maintenance Care Teams Security Installer Relationship Specialty Start Date End Date Pcp, No . PCP - General 04/02/16
== END 2023-09-21 13:15 | disposition home or self-care (01) ==
PROVIDERS: PCP Family Medicine; Visit Provider Family Medicine
DX: Z00.00 Encounter for general adult medical examination without abnormal findings (principal); I10 Essential (primary) hypertension; D69.6 Thrombocytopenia, unspecified; E78.5 Hyperlipidemia, unspecified; R73.03 Prediabetes; R97.20 Elevated prostate specific antigen [PSA]
CPT/HCPCS: 80053; 80061; 82043; 82570; 86803; G0103

== ENCOUNTER 2024-07-01 23:17 | Emergency (ER) | payer MEDICARE, BC, SELFPAY ==
--- OUTSIDE RECORDS SUMMARY | 2024-07-01 23:19 | XMS_ITS | Clinical Summary ---
Author Organization [facility] Address [address] [place] [address] Care Team Providers Care Promotions Representative Name Role Phone Pcp, No Primary Care Provider Unavailabl e Allergies No known active allergies Medications metoprolol (LOPRESSOR) 100 mg tablet Take 1 [...] 0 11/28/2009 Active predniSONE (DELTASONE) 20 mg tabletIndicatio ns:Low back pain radiating to left leg Take 1 tablet by mouth. take 2 tabs daily for 3 days, then 1 tab daily for 3 days, then 1/2 tab daily for 4 days. 11 tablet 0 04/11/2010 Active pramipexole (MIRAPEX) 0.25 mg tablet Take 1 tablet by mouth at bedtime. 0 12/19/2014 Active Active Problems Problem Noted Date Diagnosed Date Adenomatous colon polyp 12/20/2014 Overview (08/31/2020): Colonoscopy 11/2014 polyp repeat in 5 years Colonoscopy 07/2020 polyp, repeat in 7 years Spinal stenosis, lumbar megan on, without neurogenic claudication 07/08/2010 Back pain 05/02/2010 Overview (06/19/2010): April 2009: MRI Lumbar spine on 04/20/10: Facet degeneration and hypertrophy, with central canal stenosis, and developmental spinal canal narrowing, and disc bulging. L5-S1 transforaminal SHANE by Dr. Richards on 05/07/10. ~ May 2010: L4-5 left interarticular facet joint injection with aspiration by Dr. Richards. 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 Gender Identity Not on file Sexual Orientation Not on file Obstetrics History Last Filed Vital Signs Vital Sign Reading Time Taken Comments Blood Pressure 109/73 12/19/2014 11:48 AM CDT Pulse 60 12/19/2014 11:48 AM CDT Temperature 36.9 C (98.4 F) 11/28/2009 5:56 PM CDT Respiratory Rate 16 09/13/2002 12:00 AM CDT Oxygen Saturation 98% 12/19/2014 11:48 AM CDT Inhaled Oxygen Concentration - - Weight 88 kg (194 lb) 05/02/2010 10:57 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 Height 176.5 cm (5' 9.5) 04/11/2010 12:07 PM CS T Body Mass Index 28.24 04/11/2010 12:07 PM [employer]ER [employer]SEMBLER Plan of Treatment Health Maintenance Due Date Last Done Comments Depression screening for age 12+ 1967 BMI (ht and wt on same day) for age 18+ 07/11/1973 Hepatitis C screening for ag e 18-79 07/11/1973 Pneumococcal series for age 50+ (1 of 1 - PCV) 07/11/2005 Zoster (shingles) series for age 50+ (1 of 2) 07/11/2005 Lipids for age 45-75 06/14/2008 06/15/2003, 06/15/2003, 12/10/2001, Additional history exists Tetanus booster 05/02/2020 05/02/2010 Medicare Wellness for age 65+ 07/11/2020 COVID-19 vaccine series ( season) 2023 07/09/2021, 02/22/2021, 07/31/2020, Additional history exists Influenza Vaccine (Season Ended) 2024 Colonoscopy through age 75 08/31/202708/30, 08/30/2020, 12/19/2014, Additional history exists RSV vaccine for adults or (1 - 1-dose 75+ series) 07/11/2030 Tdap Completed 05/02/2010 Procedures Procedure Name Priority Date/Time Associated Diagnosis Comments COLONOSCOPY 08/30/2020 7:34 AM CDT CHOLESTEROL,TOTAL Routine 06/15/2003 8:4 1 AM CDT from Last 3 Months or Most Recently Relevant to Health Maintenance Results * COLONOSCOPY (08/30/2020 7:34 AM CDT) 08/30/2020 [...] adequate candidate for conscious sedation. The PCF-Q290AL [id number] was passed through the anus and advanced [...] 7:34 AM Procedure Code(s): --- Professional --- 08150, Colonoscopy, flexible; with removalof tumor(s), polyp(s), or other lesion(s) bysnare technique Diagnosis Code(s): --- Professional --- Z86.010, Personal history of colonicpolyps K63.5, Polyp of colon K62.1, Rectal polyp K57.30, Diverticulosis of large intestine without perforation or abscess withoutbleeding CPT copyright 2020 [employer]. All rights reserved. The codes documented in this report are preliminary and upon medical biller/coder reviewmay be revised to meet current compliance requirements. Scope In: 8:02:48 AM Scope Withdrawal Time 0 hours 10 minutes 46 seconds Scope Out: 8:19:01 AM Sid Ramirez MD PROCEDURE ORD Final Res ult * (ABNORMAL) CHOLESTEROL,TOTAL (06/15/2003 8:41 AM CDT) CHOLESTEROL,TOT AL 216(H) 110 - 199 mg/dL 06/15/2003 8:41 AM CDT Narrative 08/12/2003 3:31 AM CDT Ordered by an unspecified provider. Other Clinical Staff CHEMISTRY Final Resul t from Last 3 Months or Most Recently Relevant to Health Maintenance Insurance [facility] Care Teams Promotions Representative Relationship Specialty Start Date End Date Pcp, No . PCP - General 04/02/16
--- OUTSIDE RECORDS SUMMARY | 2024-07-01 23:20 | XMS_ITS | Data Portability ---
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 Plan of Treatment Reminders Order Date Submit Date Provider Last Modified By Organization Details Last Modified Time Details Appointments ESTABLISH ED 10 2024 02:10P M Shine Thomason MD Not available Not available Not available Lab PSA, serum or plasma [address], [address] [place], [address], 07/20/2023 08:30:20 urinalysi s, dipstick [address], [address] [facility], [address], [place], [address], 10/29/2022 09:13:26 PSA, serum or plasma [address], [address], [place], [address], 09/04/2022 15:41:27 Referral None recorded. Procedures None recorded. Surgeries None recorded. Imaging MRI, prostate, w/wo contrast 2022 023 [facility], [address], [facility] [address], [place], [address], 09/10/2022 09:17:50 Medication Orders finasteri de 5 mg tablet 2023 024 [facility] [address], [address] [facility], [place], [address], 07/13/2023 15:43:18 finasteri de 5 mg tablet 2022 023 [facility] [address], [address] [facility], [place], [address], 10/29/2022 09:34:21 Patient TargetsNo targets recorded. Patient InstructionsNo instructions recorded. Reason for Referral None Reported. Results Created Date Observation Date Name Description Value Unit Range Abnormal Flag Note LastModifiedBy Organization Detail LastModifiedTime 09/05/1909/04/2022 PSA, serum or plasm a PSA 5.8 0-4.0 Not Available [facility] , [place], [address], 09/04/2022 15:41:07 10/30/19 23 10/29/2022 urina lysis , dipst ick Color-Status Yellow Not Available [facility] [address], [place], [address], 10/29/2022 09:12:49 10/30/19 23 10/29/2022 urina lysis , dipst ick Clarity-Stat us Clear Not Available [facility] [address], [place], [address], 10/29/2022 09:12:49 10/30/19 23 10/29/2022 urina lysis , dipst ick Glucose-Stat us Negati ve Not Available [address], [place], [address], 10/29/2022 09:12:49 10/30/19 23 10/29/2022 urina lysis , dipst ick Bilirubin-St atus Negati ve Not Available [address], [place], [address], 10/29/2022 09:12:49 10/30/19 23 10/29/2022 urina lysis , dipst ick Ketones-Stat us Negati ve Not Available [address], [place], [address], 10/29/2022 09:12:49 10/30/19 23 10/29/2022 urina lysis , dipst ick Sp [place]-Stat us >=1.03 0 Not Available [address], [place], [address], 10/29/2022 09:12:49 10/30/19 23 10/29/2022 urina lysis , dipst ick pH-Status 5.5 Not Available [address], [place], [address], 10/29/2022 09:12:49 10/30/1910/29/2022 urina lysis , dipst ick Urobilinogen -Status 0.2 Not Available [address], [place], [address], 10/29/2022 09:12:49 10/30/19 23 10/29/2022 urina lysis , dipst ick Nitrates-Sta tus negati ve Not Available [address], [place], [address], 10/29/2022 09:12:49 10/30/19 23 10/29/2022 urina lysis , dipst ick Blood-Status Modera te Not Available [facility] [address], [place], [address], 10/29/2022 09:12:49 10/30/19 23 10/29/2022 urina lysis , dipst ick Leuko-Status Negati ve Not Available [facility] [address], [place], [address], 10/29/2022 09:12:49 09/11/1909/09/2022 MRI, prost ate, w/wo contr ast PHYSIC JODI ALERT EXAM: MR PELVIS PROSTA TE wwo CONTRA ST LOCATI ON: [facility] [place] DATE: 023 INDICA TION: Elevat ed prosta te specif ic antige n. COMPAR AHFSA: None. PSA: 5.8 ng/ml TECHNI QUE: Examin [...] plane. Images were analyz ed using a separa te workst ation with CAD and 3D [...] interp reted by: DR. DONOVAN SILVER M.D. [email or web address] [facility] [address] [address] [facility] [address], [place], [address], 09/10/2022 16:12:50 Result Notes None recorded. Problems Name Problem SNOMED Code Status Onset Date Resolution Date Notes Provider Name and Address Organization Details Recorded Time Clinical finding Active 2015 N20.0 : Staghorn calculus Not Available [facility] 0 23:48:51 Jairo hematuria 767587381 Active 2015 R31.0 : Jairo hematuria Not Available [facility] 0 23:48:51 Prostate specific antigen above reference range 991645997 Active 2022 Shine Thomason MD [address] [facility],[address], [place], [address] , [facility] 3 16:08:56 Lower urinary tract symptoms due to benign prostatic hypertrop 37947901393 101 Active 2022 Shine Thomason MD [address] [place] [address],[address], [place], [address] , [facility] 3 16:08:59 Problem Notes None recorded. Procedures Surgical History Date Name Laterality Status Provider Name and Address Organization Details Recorded Time 024 COMPLEX VISIT completed Shine Thomason MD [address] [place] [address],[address], [place], [address], [facility] 07/13/2023 17:37:35 024 Bladder Scan completed [facility] 07/13/2023 15:05:37 023 Cystoscopy- male completed Shine Thomason MD [address] [place] [address],[address], [place], [address], [facility] 10/29/2022 09:31:25 017 Colonoscopy completed [facility] 07/13/2023 15:06:16 016 urine capacity measure completed Not Available [facility] 08/11/2019 17:28:18 016 Cystourethroscopy completed Not Available [facility] 08/11/2019 17:28:18 014 Total knee arthroplasty completed Not Available [facility] 08/11/2019 17:28:18 Imaging Results Imaging Date Name Status LastModified by Organiz ation Details LastModified Time 09/09/2022 MRI, prostate, w/wo contrast completed [address] [facility] [address] [facility] [address], [place], [address], 09/10/2022 16:12:50 Procedure Notes None recorded. Medical Equipment None Reported. Allergies No known drug allergies Medications Name Sig Start Date Stop Date Status Note LastModified by Organization Details LastModified Time acetamino phen 500mg cap TAKE 1 TO 2 CAPSULES BY MOUTH EVERY 6 HOURS NEEDED . DO NOT EXCEED 4000 MG OF ACETAMIN OPHEN PER 24 HOURS 07/12 completed Not Available Not Available Not Available losartan 50 mg tablet TAKE 1 TABLET BY MOUTH ONCE DAILY 07/12 completed Not Available Not Available Not Available amoxicill in 500 mg capsule TAKE FOUR CAPSULES BY MOUTH ONE HOUR BEFORE APPOINTM ENT active Not Available Not Available No t Available pramipexo le 1 mg tablet TAKE 1 TABLET BY MOUTH IN THE EVENING . APPOINTM ENT REQUIRED FOR FUTURE REFILLS active Not Available Not Available No t Available carvedilo l 6.25 mg tablet TAKE 1 TABLET BY MOUTH TWICE DAILY WITH FOOD active Not Available Not Available No t Available atorvasta tin 20 mg tablet TAKE 1 TABLET BY MOUTH ONCE DAILY active Not Available Not Available No t Available trazodone 50 mg tablet TAKE 1 TABLET BY MOUTH ONCE DAILY NEEDED FOR INSOMNIA 07/12 completed Not Available Not Available Not Available meloxicam 15 mg tablet 07/12 completed Not Available Not Available Not Available metoprolo l succinate ER 100 mg tablet,ex tended release 24 hr TAKE 1 TABLET BY MOUTH ONCE DAILY 07/12 completed Not Available Not Available Not Available penicilli n V potassium 500 mg tablet TAKE TABLET BY MOUTH 4 TIMES DAILY UNTILL GONE 07/12 completed Not Available Not Available Not Available amoxicill in 500 mg tablet TAKE FOUR TABLETS BY MOUTH ONE HOUR BEFORE APPOINTM ENT active Not Available Not Available No t Available tamsulosi n 0.4 mg capsule TAKE 2 CAPSULES BY MOUTH ONCE DAILY active Not Available Not Available No t Available losartan 100 mg tablet TAKE 1 TABLET BY MOUTH ONCE DAILY active Not Available Not Available No t Available fluoxetin e 20 mg capsule TAKE 1 CAPSULE BY MOUTH ONCE DAILY . APPOINTM ENT REQUIRED FOR FUTURE REFILLS active Not Available Not Available No t Available sertralin e 50 mg tablet TAKE 1 TABLET BY MOUTH ONCE DAILY 07/12 completed Not Available Not Available Not Available finasteri de 5 mg tablet Take 1 tablet every day by mouth 2024 active Refilled to bridge patient to appt on 08/03/24 Not Available Not Available Not Available oxycodone 5 mg tablet TAKE 1/2 TO 1 (ONE-RADHA F TO ONE) TABLET BY MOUTH EVERY 4 TO 6 HOURS NEEDED FOR PAIN. MAX OF 6 TABLETS PER 24 HOURS . TAKE NEEDED FOR POST-OP PAIN: 2.5MG FOR MILD PAIN, 5MG FOR MODERATE -SEVERE PAIN, WEAN TOLERATE D. 07/12 completed Not Available Not Available Not Available bupropion HCl XL 300 mg 24 hr tablet, extended release TAKE 1 TABLET BY MOUTH ONCE DAILY active Not Available Not Available No t Available hydrochlo rothiazid e 12.5 mg tablet TAKE 1 TABLET BY MOUTH ONCE DAILY active Not Available Not Available No t Available GaviLyte- G 236 gram-22.7 4 gram-6.74 gram-5.86 gram oral solution TAKE 240MLS BY MOUTH EVERY 10 MINUTES UNTIL FECAL EFFLUENT IS CLEAR 09/04 completed Not Available Not Available Not Available Eliquis 5 mg tablet TAKE 1 TABLET BY MOUTH TWICE DAILY 07/12 completed Not Available Not Available Not Available Stimulant Laxative Plus 8.6 mg-50 mg tablet TAKE 1 TO 4 TABLETS BY MOUTH TWICE DAILY NEEDED FOR CONSTIPA TION . HOLD MEDICATI ON IF EXPERIEN CING LOOSE STOOLS 07/12 completed Not Available Not Available Not Available Eliquis DVT-PE Treatment 30-Day Starter 5 mg (74 tablets) in dose pack FOLLOW PACKAGE DIRECTIO NS. 07/12 completed Not Available Not Available Not Available Vitals Date Recorded Body weight Body mass index (BMI) Body height Provider Name and Address Organization Details Last Updated DateTime 09/04/2022 92656.36 g 31.7 kg/m2 [facility] 15:02:02 Date Recorded Body height Body mass index (BMI) Body weight Provider Name and Address Organization Details Last Updated DateTime 10/29/2022 175.26 cm 31.7 kg/m2 73207.36 g [facility] 10/29/2022 09:03:19 Date Recorded Body height Body mass index (BMI) Body weight Provider Name and Address Organization Details Last Updated DateTime 07/13/2023 175.26 cm 31.7 kg/m2 87360.36 g [facility] 07/13/2023 15:06:58 Social History Question Answer Notes LastModified by Organizat ion Details LastModified Time Tobacco Smoking Status Never Smoker Not Available [facility] 08/11/2019 02:47:02 What Is Your Level Of Alcohol Consumption? Occasional [email or web address] Information not available 09/04/2022 How Many Times Per Week Do You Consume Alcohol? Less Than 1 Time Per Week [email or web address] Information not available 09/04/2022 What Is Your Level Of Caffeine Consumption? Occasional [email or web address] Information not available 09/04/2022 Race White [email or web address] Information n ot available 08/11/2019 Marital Status [email or web address] Informati on not available 08/11/2019 What Was The Date Of Your Most Recent Tobacco Screening? 07/13/2023 [email or web address] Information not available 07/13/2023 Have You Ever Been Counseled For Unhealthy Alcohol Use? No [email or web address] Information not available 09/04/2022 Do You Use Any Illicit Or Recreational Drugs? No [email or web address] Information not available 09/04/2022 Has Tobacco Cessation Counseling Been Provided? No [email or web address] Information not available 09/04/2022 Do You Or Have You Ever Used Any Other Forms Of Tobacco Or Nicotine? No [email or web address] Information not available 09/04/2022 How Many Days In The Past Year Have You Consumed 5 Or More Drinks? 0 [email or web address] Information no t available 07/13/2023 Sex: Unknown Functional Status None recorded. Mental Status None recorded. Family History Nothing Reported Notes:Bladder Cancer:Father Cancer, colon:Mother Arthritis:Father Hypertension:Mother Medical History Condition Response Sexually Transmitted Infection N Diabetes N Bleeding Disorder Y High Blood Pressure Y Kidney Stones N Cancer N Lung Disease N Depression N High Cholesterol N GERD/Acid Reflux N Heart Disease N Immunizations Vaccine Type Date Status Note Provider Nam e and Address Organization Details Recorded Time zoster recombinant 9 completed Shirlene June cleo [facility] 09/04/2022 15:02:07 zoster recombinant 9 completed Shirlene June cleo, [facility] 09/04/2022 15:02:07 COVID-19, mRNA, LNP-S, PF, 30 mcg/0.3 mL dose 1 completed Shirlene June cleo, [facility] 09/04/2022 15:02:07 COVID-19, mRNA, LNP-S, PF, 30 mcg/0.3 mL dose 1 completed Shirlene June cleo [facility] 09/04/2022 15:02:07 COVID-19, mRNA, LNP-S, PF, 30 mcg/0.3 mL dose 1 completed Shirlene June null, [facility] 09/04/2022 15:02:07 COVID-19, mRNA, LNP-S, PF, 30 mcg/0.3 mL dose, bailee-sucrose 2 completed Shirlene June null, [facility] 09/04/2022 15:02:07 pneumococcal polysaccharide PPV23 3 completed Shirlene June null, [facility] 09/04/2022 15:02:07 Tdap 1 completed Shirlene June null, [facility] 09/04/2022 15:02:07 Pneumococcal conjugate PCV 13 2 completed Shirlene June null, [facility] 09/04/2022 15:02:07 Td (adult), 2 Lf tetanus toxoid, preservative free, adsorbed 1 completed Shirlene June null, [facility] 09/04/2022 15:02:07 Past Encounters Encounter ID Performer Location Encounter Start Date Encounter Closed Date Diagnosis/Indication Diagnosis SNOMED-CT Code Diagnosis ICD10 Code Diagnosis Note [id number] Shine Thomason MD [facility] [address] [place] [address] 09/04/2022 14:34:30 09/10/2022 09:17:50 Prostate specific antigen above reference range 641245067 R97.20 We discussed PSA screening in general, differenti al diagnosis of elevated PSA, and the work up for diagnosis of prostate cancer. I recommende d that we proceed with prostate MRI at this time. Depending on the MRI results, we may proceed with ultrasound guided UroNav fusion prostate biopsy, template biopsies, close PSA follow up, or further risk stratifica tion with tools such as 4K Score or ExoDx Intellisco re. All of his questions were answered today in clinic. I advised him to call me within 3 days after the MRI if he has not heard back with the results and plan. Lower urin elmer tract symptoms due to benign prostatic hypertrophy 0507396302 9101 N40.1 - Bothersome symptoms despite tamsulosin . Pending MRI results, consider follow-up for UroCuff pressure flow studies, cystoscopy and TRUS volume study and discussion about medical and surgical options. [id number] Shine Thomason MD [place] [id number] [facility],[address] [place] [address] 10/29/2022 09:02:24 11/05/2022 12:37:30 Lower urinary tract symptoms due to benign prostatic hypertrophy 3636875801 9101 N40.1 - Moderate obstructiv e bladder symptoms with severe prostatome willie. He has prominent varicositi es of the prostate emanating to the left bladder neck and base.-He is currently on Eliquis for DVT-Recomm ended that we continue tamsulosin but also start finasterid e 5 mg daily. Discussed common side effects.- He travels to [place] for the winter and will follow-up with me again in July 2023 with PSA, PVR, AUA symptom score Prostate s pecific antigen above reference range 993797664 R97.20 - Normal MRI, prostate 158 cc [id number] Shine Thomason MD [place] [id number] [facility],[address] [place] [address] 07/13/2023 14:53:06 07/14/2023 13:35:00 Prostate specific antigen above reference range 325517254 R97.20 - History of severe prostatome willie, normal MRI-PSA today pending, call with results Lower urin elmer tract symptoms due to benign prostatic hypertrophy 3521551763 9101 N40.1 - Moderate obstructiv e bladder symptoms with severe prostatome willie. He has prominent varicositi es of the prostate emanating to the left bladder neck and base.-Khoa wed finasterid e 5 mg daily. Continue tamsulosin .- RTC 1 year with PSA, PVR, AUA symptom score Health Concerns Section Related Observation LastModified by Organization Detai ls LastModified Time None Recorded Concern Status LastModified by Organization Details LastModified Time None Recorded Advance Directives Directive None Recorded Payers Encounter Date Sequence Insurance Name Policy Number Policy [place] Covered Member ID Cor[place]an Member ID Guarantor Name 09/04/2022 1 [facility] [id number] Mukul Castillo [id number] Mukul Weems Volandy 10/29/2022 1 [facility] [id number] Mukul Weems Vought [id number] Mukul Weems Volandy 07/13/2023 1 [facility] [id number] Mukul Weems Vought [id number] Mukul Weems Volandy Notes Date Note Type Note Provider Name and Address Organization Details Recorded Time 09/04/2022 text/html New patient referred for elevated PSA and LUTS. Recent PSA at [facility] on 07/21/2022 was 4.8. Recheck PSA today in our clinic is 5.8. No family history of prostate cancer. He has long-term weak stream, nocturia x2 and postvoid dribbling. He takes tamsulosin 0.8 mg daily. He is on Eliquis for left DVT started about 2 months ago. Shine Thomason MD [address] [place] [address],[address], [place], [address], [facility] 09/04/2022 16:09:46 10/29/2022 text/html 09/04/22: New patient referred for elevated PSA and LUTS. Recent PSA at [facility] on 07/21/2022 was 4.8. Recheck PSA today in our clinic is 5.8. No family history of prostate cancer. He has long-term weak stream, nocturia x2 and postvoid dribbling. He takes tamsulosin 0.8 mg daily. He is on Eliquis for left DVT started about 2 months ago. 10/29/22: Prostate MRI on 09/09/2022 shows 158 cm prostate with no suspicious lesions. There was hypointense nodularity with enhancement in the left lateral bladder wall. He presents today for further evaluation with cystoscopy. AUA symptom score 21, bother 3. Most bothersome symptoms are intermittency, weak stream and postvoid dribbling. He remains on Eliquis for DVT. Shine Thomason MD [address] [place] [address],[address], [place], [address], [facility] 10/29/2022 09:35:27 07/13/2023 text/html 09/04/22: New patient referred for elevated PSA and LUTS. Recent PSA at [facility] on 07/21/2022 was 4.8. Recheck PSA today in our clinic is 5.8. No family history of prostate cancer. He has long-term weak stream, nocturia x2 and postvoid dribbling. He takes tamsulosin 0.8 mg daily. He is on Eliquis for left DVT started about 2 months ago. 10/29/22: Prostate MRI on 09/09/2022 shows 158 cm prostate with no suspicious lesions. There was [...] Postvoid residual 50 mL. Shine Thomason MD [address] [facility],[address], [place], [address], [facility] 07/13/2023 17:38:40
--- OUTSIDE RECORDS SUMMARY | 2024-07-01 23:20 | XMS_ITS | Data Portability ---
Author Organization Formerly [facility] - [place], [place] (Inactive) Address [address] [place] [address] Care Team Providers Care Optical Glass Inspector Name Role Phone ZAY COTTER Primary Care Provider Assessment Encounter Date Assessment Date Assessment LastModified by Organization Details LastModified Time 04/02/2023 04/02/2023 Patient is winter visitor, PCP out of state, per patient all preventative care is up to date, records requested Not available 04/11/2023 22:28:12 04/03/2023 04/03/2023 SBP/DBP level: SBP >159 or DBP >99: Medication compliance reviewed. Provider notified of patient's BP and provider gave instructions. Not available 04/03/2023 11:37:16 04/28/2023 04/28/2023 Patient is winter visitor, PCP out of state, per patient all preventative care is up to date, records requested Not available 04/28/2023 10:15:20 01/26/2024 01/26/2024 Patient is winter visitor, PCP out of state, per patient all preventative care is up to date, records requested Not available 02/02/2024 04:39:14 Plan of Treatment Reminders Order Date Submit Date Provider Last Modified By Organization Details Last Modified Time Details Appointments None recorded. Lab HbA1c (hemoglobin A1c), blood 2023 025 kike 5 Vm_phx_brandon liz MD Lab, [address], [place], [address], 5 11:09:23 CMP, serum or plasma 2023 025 kike Kamaraphxflo liz MD Lab, [address], [address], [place], [address], 5 11:09:23 TSH, serum, reflex free T4 2023 025 kike Kamaraphxflo liz MD Lab, [address], [address], [place], [address], 5 11:09:23 CBC w/ auto diff 2023 025 kike Kamaraphxflo liz MD Lab, [address], [address], [place], [address], 5 11:09:24 lipid panel, serum 2023 025 kike Kamaraphxflo liz MD Lab, [address], [address], [place], [address], 5 11:09:24 albumin/cre atinine, ratio, urine 2023 025 kike Kamaraphxflo liz MD Lab, [address], [address], [place], [address], 5 11:09:24 CBC 2023 024 MARIO Stanley liz MD Lab, [address], [address], [place], [address], 4 19:08:03 CMP, serum or plasma 2023 024 [email or web address] Asadlesly liz MD Lab, [address], [address], [place], [address], 4 13:44:49 TSH, serum, reflex free T4 [address]_valenciaxflo liz MD Lab, [address], [address], [place], [address], 4 13:44:49 HbA1c (hemoglobin A1c), blood 2023 024 [facility] Lab, [address], [address], [place], [address], 4 13:44:49 lipid panel, serum [address]_lesly liz MD Lab, [address], [address], [place], [address], 4 13:44:50 albumin/cre atinine, ratio, urine [address]_phx_brandon liz MD Lab, [address], [address], [place], [address], 4 11:20:56 Referral cardiologis t referral - [facility].Please call the patient and schedule an appointment . Thank you. 2023 024 kike Quintero MD, [address] [facility], [facility] [address], [place], [address], 4 13:51:36 Procedures None recorded. Surgeries None recorded. Imaging None recorded. Medication Orders losartan 100 mg tablet 2023 024 [facility], [address] [facility], [place], [address], 4 12:06:40 hydrochloro thiazide 12.5 mg tablet 2023 02 024 [facility], [address] [facility], [place], [address], 12:02:59 Patient TargetsNo targets recorded. Patient Instructions Encounter Date Encounter Id Patient Instructions Last Modified By Organization Details Last Modified Time 04/03/2023 [id number] Continue your current medication regimen and follow up as indicated by your provider. Please contact the clinic if you have any questions or concerns. Not available 04/03/2023 11:27:41 Reason for Referral Audit Partner Referral for Es sential hypertension [facility].Please call the patient and schedule an appointment. Thank you. Referring Physician: Gianna Sawyer, Family Medicine, Encounter Date: 04/02/2023 Results Created Date Observation Date Name Description Value Unit Range Abnormal Flag Note LastModifiedBy Organization Detail LastModifiedTime 04/03/1904/04/2023 CBC, PLATE LET, NO DIFFE RENTI AL WBC 7.9 x10e3 /uL 3.4-10 .8 Not Available Vm_phx_brandon liz MD Lab [address] [place] [address], [address], 04/06/2023 19:08:03 04/03/19 24 04/04/2023 CBC, PLATE LET, NO DIFFE RENTI AL RBC 5.91 x10e6 /uL 4.14-5 .80 high Not Available Isreal_phxflo liz MD Lab [address] [place] [address], [address], 04/06/2023 19:08:03 04/03/19 24 04/04/2023 CBC, PLATE LET, NO DIFFE RENTI AL hemoglobin 15.4 g/dL 13.0-1 7.7 Not Available Asadphx_brandon liz MD Lab [address] [place] [address], [address], 04/06/2023 19:08:03 04/03/19 24 04/04/2023 CBC, PLATE LET, NO DIFFE RENTI AL hematocrit 47.7 % 37.5-5 1.0 Not Available Vm_phx_brandon liz MD Lab [address] [place] [address], [place], [address], 04/06/2023 19:08:03 04/03/19 24 04/04/2023 CBC, PLATE LET, NO DIFFE RENTI AL MCV 81 fL 79-97 Not Available Vm_phx_fazal liz MD Lab [address] [place] [address], [place], [address], 04/06/2023 19:08:03 04/03/19 24 04/04/2023 CBC, PLATE LET, NO DIFFE RENTI AL MCH 26.1 pg 26.6-3 3.0 low Not Available Isreal_phx_brandon liz MD Lab [address] [address], [place], [address], 04/06/2023 19:08:03 04/03/19 24 04/04/2023 CBC, PLATE LET, NO DIFFE RENTI AL MCHC 32.3 g/dL 31.5-3 5.7 Not Available Vm_phx_brandon liz MD Lab [address] [address], [place], [address], 04/06/2023 19:08:03 04/03/19 24 04/04/2023 CBC, PLATE LET, NO DIFFE RENTI AL RDW 14.0 % 11.6-1 5.4 Not Available Vm_phx_brandon liz MD Lab [address] [address], [place], [address], 04/06/2023 19:08:03 04/03/19 24 04/04/2023 CBC, PLATE LET, NO DIFFE RENTI AL platelets 146 x10e3 /uL 150-45 0 low Not Available Vm_phx_brandon liz MD Lab [address] [address], [place], [address], 04/06/2023 19:08:03 04/03/19 24 04/04/2023 HGB A1C WITH EAG ESTIM ATION estim. avg glu (EAG) 117 mg/dL Not Available Darvin liz MD Lab [address] [place] [address], [place], [address], 04/06/2023 19:08:04 04/03/19 24 04/04/2023 HGB A1C WITH EAG ESTIM ATION hemoglobin A1C 5.7 % 4.8-5. 6 high Predi abete s: 5.7 - 6.4 Diabe em: >6.4 Glyce leonidas contr ol for adult s with diabe em: <7.0 Not Available Stanley liz MD Lab [address] [place] [address], [place], [address], 04/06/2023 19:08:04 04/03/19 24 04/06/2023 COMPR EHENS AMY METAB OLIC PANEL (SST) sodium 137 mmol/ L 135 - 145 Not Available Stanley liz MD Lab [address] [place] [address], [place], [address], 04/06/2023 19:08:05 04/03/19 24 04/06/2023 COMPR EHENS AMY METAB OLIC PANEL (SST) potassium 4.5 mmol/ L 3.5 - 5.2 Not Available Stanley liz MD Lab [address] [place] [address], [place], [address], 04/06/2023 19:08:05 04/03/19 24 04/06/2023 COMPR EHENS AMY METAB OLIC PANEL (SST) chloride 103 mmol/ L 97 - 108 Not Available Stanley liz MD Lab [address] [place] [address], [place], [address], 04/06/2023 19:08:05 04/03/19 24 04/06/2023 COMPR EHENS AMY METAB OLIC PANEL (SST) carbon dioxide 30 mmol/ L 20 - 32 Not Available Stanley liz MD Lab [address] [place] [address], [place], [address], 04/06/2023 19:08:05 04/03/19 24 04/06/2023 COMPR EHENS AMY METAB OLIC PANEL (SST) glucose 106 mg/dL 69 - 99 high Not Available Stanley liz MD Lab [address] [place] [address], [place], [address], 04/06/2023 19:08:05 04/03/19 24 04/06/2023 COMPR EHENS AMY METAB OLIC PANEL (SST) BUN 16 mg/dL 6 - 26 Not Available Ross liz MD Lab [address] [address], [place], [address], 04/06/2023 19:08:05 04/03/19 24 04/06/2023 COMPR EHENS AMY METAB OLIC PANEL (SST) creatinine 0.8 mg/dL 0.5 - 1.4 Not Available Stanley liz MD Lab [address] [place] [address], [place], [address], 04/06/2023 19:08:05 04/03/19 24 04/06/2023 COMPR EHENS AMY METAB OLIC PANEL (SST) eGFR 97.00 mL/mi n >60.00 Not Available Stanley liz MD Lab [address] [address], [place], [address], 04/06/2023 19:08:05 04/03/19 24 04/06/2023 COMPR EHENS AMY METAB OLIC PANEL (SST) SGOT (AST) 14 U/L 12 - 40 Not Available Stanley liz MD Lab [address] [address], [place], [address], 04/06/2023 19:08:05 04/03/19 24 04/06/2023 COMPR EHENS AMY METAB OLIC PANEL (SST) SGPT (ALT) 17 U/L 7 - 52 Not Available Adelaide liz MD Lab [address] [place] [address], [place], [address], 04/06/2023 19:08:05 04/03/19 24 04/06/2023 COMPR EHENS AMY METAB OLIC PANEL (SST) alkaline phosphatase 87 U/L 29 - 121 Not Available Stanley liz MD Lab [address] [address], [place], [address], 04/06/2023 19:08:05 04/03/19 24 04/06/2023 COMPR EHENS AMY METAB OLIC PANEL (SST) total bilirubin 0.9 mg/dL 0.3 - 1.1 Not Available Stanley liz MD Lab [address] [place] [address], [place], [address], 04/06/2023 19:08:05 04/03/19 24 04/06/2023 COMPR EHENS AMY METAB OLIC PANEL (SST) calcium 9.1 mg/dL 8.6 - 10.4 Not Available Stanley liz MD Lab [address] [place] [address], [place], [address], 04/06/2023 19:08:05 04/03/19 24 04/06/2023 COMPR EHENS AMY METAB OLIC PANEL (SST) albumin 4.2 g/dL 3.5 - 5.8 Not Available Stanley liz MD Lab [address] [place] [address], [place], [address], 04/06/2023 19:08:05 04/03/19 24 04/06/2023 COMPR EHENS AMY METAB OLIC PANEL (SST) total protein 6.6 g/dL 6.0 - 9.0 Not Available Stanley liz MD Lab [address] [place] [address], [place], [address], 04/06/2023 19:08:05 04/03/19 24 04/06/2023 LIPID PANEL (SST) cholesterol 110 mg/dL 69 - 200 Not Available Stanley liz MD Lab [address] [address], [place], [address], 04/06/2023 19:08:07 04/03/19 24 04/06/2023 LIPID PANEL (SST) triglyceride s 90 mg/dL 29 - 150 Not Available Stanley liz MD Lab [address] [address], [place], [address], 04/06/2023 19:08:07 04/03/19 24 04/06/2023 LIPID PANEL (SST) HDL 36 mg/dL 22 - 93 Not Available Stanley liz MD Lab [address] [address], [place], [address], 04/06/2023 19:08:07 04/03/19 24 04/06/2023 LIPID PANEL (SST) LDL(calculat ed) 56 mg/dL 0 - 130 Not Available Stanley liz MD Lab [address] [address], [place], [address], 04/06/2023 19:08:07 04/03/19 24 04/06/2023 LIPID PANEL (SST) cholesterol/ HDL risk(calcula kelsey) 3.0 mg/dL 2.9 - 5.7 Not Available Stanley liz MD Lab [address] [address], [place], [address], 04/06/2023 19:08:07 04/03/19 24 04/06/2023 SPECI MEN INTEG RITY CHECK (LIH) hemolysis 0 0 - 1 Not Available Vm_phx_v jose liz MD Lab [address], [place], [address], 04/06/2023 19:08:08 04/03/19 24 04/06/2023 SPECI MEN INTEG RITY CHECK (LIH) icterus 0 0 - 1 Not Available Vm_phx_vil nancy liz MD Lab [address], [place], [address], 04/06/2023 19:08:08 04/03/19 24 04/06/2023 SPECI MEN INTEG RITY CHECK (LIH) lipemia 0 0 - 1 Not Available Vm_phx_vil nancy liz MD Lab [address], [place], [address], 04/06/2023 19:08:08 04/03/19 24 04/06/2023 TSH WITH REFLE X TO FREE T4 (SST) TSH 2.0 uIU/m L 0.5 - 5.3 Not Available Isreal_phx_brandon liz MD Lab [address], [place], [address], 04/06/2023 19:08:09 Result Notes None recorded. Problems Name Problem SNOMED Code Status Onset Date Resolution Date Notes Provider Name and Address Organization Details Recorded Time Essential hypertension 44742359 Active 2023 Gianna Sawyer DO [address], [place], [address], [facility]- [place] 4 12:03:56 Moderate recurrent major depression 25396194 Active 2023 Gianna Sawyer DO [address], [place], [address], [facility]/[place] 4 22:24:50 Sleep apnea 99079517 Active 2023 Gianna Shnaydman , DO [address], [place], [address], [facility]/[place] 4 22:25:11 Restless legs 76505074 Active 2023 Gianna Sawyer , DO [address], [place], [address], [facility]/[place] 4 22:26:55 Chronic insomnia 447524581 Active 2023 Gianna Sawyer , DO [address], [place], [address], [facility]/[place] 4 22:27:00 Prediabetes 362643156 Active 2023 Gianna Sawyer DO [address], [place], [address], [facility] 4 10:30:56 Obesity 651154788 Active 2023 Gianna Sawyer DO [address], [place], [address], [facility]/[place] 4 14:42:10 Problem Notes None recorded. Procedures Surgical History Date Name Laterality Status Provider Name and Address Organization Details Recorded Time 04/21/19 25 Lab / Venip[facility] - [facility] 04/18/2024 18:55:24 04/03/19 24 Lab / Venipuncture - No Venipuncture Charge completed [facility]/[place] 04/02/2023 12:54:13 01/01/20 23 screening colonoscopy completed Gianna SvenscottDO [address], [place], [address], [facility]/[place] 01/26/2024 10:26:02 Knee Surgery completed Daphnie [facility]/[place] 01/26/2024 09:54:32 Imaging Results None recorded. Procedure Notes None recorded. Medical Equipment None Reported. Allergies No known drug allergies Medications Name Sig Start Date Stop Date Status Note LastModified by Organization Details LastModified Time acetamino phen 500mg cap TAKE 1 TO 2 CAPSULES BY MOUTH EVERY 6 HOURS NEEDED . DO NOT EXCEED 4000 MG OF ACETAMIN OPHEN PER 24 HOURS 04/11 completed Not Available Not Available Not Available losartan 50 mg tablet TAKE 2 TABLET BY MOUTH ONCE DAILY 04/11 completed curren tly 100mg, but finishin g this script by taking 2 tablets* 04/03/23 mb Not Available Not Available Not Available amoxicill in 500 mg capsule TAKE FOUR CAPSULES BY MOUTH ONE HOUR BEFORE APPOINTM ENT 01/25 completed Not Available Not Available Not Available pramipexo le 1 mg tablet TAKE 1 TABLET BY MOUTH IN THE EVENING active Not Available Not Available No t Available atorvasta tin 40 mg tablet TAKE 1 TABLET BY MOUTH EVERY DAY AT BEDTIME active Not Available Not Available No t Available carvedilo l 6.25 mg tablet 01/25 completed Not Available Not Available Not Available atorvasta tin 20 mg tablet TAKE 1 TABLET BY MOUTH ONCE DAILY active Not Available Not Available No t Available trazodone 50 mg tablet TAKE 1 TABLET BY MOUTH ONCE DAILY NEEDED FOR INSOMNIA active Not Available Not Available No t Available meloxicam 15 mg tablet 01/25 completed Not Available Not Available Not Available metoprolo l succinate ER 100 mg tablet,ex tended release 24 hr TAKE 1 TABLET BY MOUTH ONCE DAILY 04/28 completed Not Available Not Available Not Available penicilli n V potassium 500 mg tablet TAKE TABLET BY MOUTH 4 TIMES DAILY UNTILL GONE 01/25 completed Not Available Not Available Not Available amoxicill in 500 mg tablet TAKE FOUR TABLETS BY MOUTH ONE HOUR BEFORE APPOINTM ENT 01/25 completed Not Available Not Available Not Available carvedilo l 3.125 mg tablet TAKE 1 TABLET BY MOUTH TWICE DAILY WITH MEALS active Not Available Not Available No t Available tamsulosi n 0.4 mg capsule TAKE 2 CAPSULES BY MOUTH ONCE DAILY active Not Available Not Available No t Available methylpre dnisolone 4 mg tablets in a dose pack TAKE DIRECTED ON PACKAGE DIRECTIO NS 01/25 completed Not Available Not Available Not Available losartan 100 mg tablet TAKE 1 TABLET BY MOUTH ONCE DAILY active Not Available Not Available No t Available fluoxetin e 20 mg capsule TAKE 1 CAPSULE BY MOUTH ONCE DAILY active Not Available Not Available No t Available sertralin e 50 mg tablet TAKE 1 TABLET BY MOUTH ONCE DAILY 04/11 completed Not Available Not Available Not Available finasteri de 5 mg tablet TAKE 1 TABLET BY [...] FOR MODERATE -SEVERE PAIN, WEAN TOLERATE D. 04/02 completed Not Available Not Available Not Available bupropion HCl XL 300 mg 24 hr tablet, extended release TAKE 1 TABLET BY MOUTH ONCE DAILY active Not Available Not Available No t Available hydrochlo rothiazid e 12.5 mg tablet 1 tab PO QD active Not Available Not Available No t Available Eliquis 5 mg tablet TAKE 1 TABLET BY MOUTH TWICE DAILY 04/02 completed Not Available Not Available Not Available Stimulant Laxative Plus 8.6 mg-50 mg tablet TAKE 1 TO 4 TABLETS BY MOUTH TWICE DAILY NEEDED FOR CONSTIPA TION . HOLD MEDICATI ON IF EXPERIEN CING LOOSE STOOLS 04/11 completed Not Available Not Available Not Available Eliquis DVT-PE Treatment 30-Day Starter 5 mg (74 tablets) in dose pack FOLLOW PACKAGE DIRECTIO NS. 04/02 completed Not Available Not Available Not Available Vitals Date Recorded Body height Body mass index (BMI) Body weight Heart rate Body temperature Respiratory rate Oxygen saturation Oxygen saturation in Arterial blood by Pulse oximetry Systolic blood pressure Diastolic blood pressure Provider Name and Address Organization Details Last Updated DateTime 4 175.26 cm 31.7 kg/m2 70849.3 6 g 65 /min 97.7 [degF] 16 /min 95 % 95 % 138 mm[Hg] 86 mm[Hg] [facility] [place] 4 10:07:32 Date Recorded Body height Body mass index (BMI) Body weight Heart rate Respiratory rate Pain severity - 0-10 verbal numeric rating [Score] - Reported Body temperature Oxygen saturation Oxygen saturation in Arterial blood by Pulse oximetry Systolic blood pressure Diastolic blood pressure Provider Name and Address Organization Details Last Updated DateTime 4 175.26 cm 31.7 kg/m2 10323.3 6 g 72 /min 16 /min 0 96.9 [degF] 98 % 98 % 138 mm[Hg] 87 mm[Hg] [facility] 4 10:00:28 Date Recorded Body weight Body mass index (BMI) Body height Heart rate Body temperature Oxygen saturation Oxygen saturation in Arterial blood by Pulse oximetry Systolic blood pressure Diastolic blood pressure Provider Name and Address Organization Details Last Updated DateTime 4 09834.0 6 g 31.8 kg/m2 175.26 cm 65 /min 97.1 [degF] 97 % 97 % 169 mm[Hg] 93 mm[Hg] Daphnie Mitchell [facility]/[place] 4 11:44:21 Date Recorded Body height Systolic blood pressure Diastolic blood pressure Systolic blood pressure Diastolic blood pressure Provider Name and Address Organization Details Last Updated DateTime 4 175.26 cm 172 mm[Hg] 102 mm[Hg] 170 mm[Hg] 95 mm[Hg] SHAHRAM MARCUM [facility]/[place] 4 11:48:04 Social History Question Answer Notes LastModified by Organizat ion Details LastModified Time Tobacco Smoking Status Never Smoker [facility] 04/02/2023 11:41:43 Do You Have An Advance Directive? No Information not available 04/02/2023 What Is Your Level Of Alcohol Consumption? Occasional Information not available 04/02/2023 Are You Blind Or Do You Have Difficulty Seeing? No Information not available 04/02/2023 Are You Currently Employed? No Information not available 04/02/2023 Are You Deaf Or Do You Have Serious Difficulty Hearing? No Information not available 04/02/2023 What Type Of Diet Are You Following? REGULAR [email or web address] Information not available 04/02/2023 What Is The Highest Grade Or Level Of School You Have Completed Or The Highest Degree You Have Received? [id number] Information not available 04/02/2023 How Many Days Of Moderate To Strenuous Exercise, Like A Brisk Walk, Did You Do In The Last 7 Days? 4 Information not available 04/02/2023 A. General Health: In General Would You Say Your Health Is? Good Information not available 04/02/2023 B. Screening: Do You Feel Isolated From Family And Friends? No Information not available 04/02/2023 C. Incontinence Screening: Do You Find It Hard To Control Your Bladder? No Information not available 04/02/2023 D. Sexual Health: How Often During The Past 4 Weeks Have You Been Bothered By Sexual Problems? Never Information not available 04/02/2023 E. Oral Health: How Often During The Past 4 Weeks Have You Been Bothered By Teeth Or Dentures? Never Information not available 04/02/2023 Have You Had An Unplanned Hospital Admission In The Last Year? No Information not available 04/02/2023 Have You Had An Unplanned Hospital Admission In The Last 30 Days? No Information not available 04/02/2023 Have You Had An ER Visit Since You Were Last Seen? Yes Information not available 04/02/2023 Do You Have A Medical Power Of Bullet Slugs Inspector? No Information not available 04/02/2023 What Was The Date Of Your Most Recent Tobacco Screening? 01/26/2024 Information not available 01/26/2024 How Many Children Do You Have? 2 Information not available 04/02/2023 What Is Your Relationship Status? Information not available 04/02/2023 Do You Use Your Seat Belt Or Car Seat Routinely? Yes Information not available 04/02/2023 Are You Sexually Active? No Information not available 04/02/2023 Do You Have Smoke And Carbon Monoxide Detectors In Your Home? Yes Information not available 04/02/2023 Are There Any Smokers In Your House? No Information not available 04/02/2023 Do You Feel Stressed (tense, Restless, Nervous, Or Anxious, Or Unable To Sleep At Night)? [id number] Information not available 04/02/2023 Do You Use Any Illicit Or Recreational Drugs? No Information not available 04/02/2023 Do You Use Sunscreen Routinely? No Information not available 04/02/2023 Do You Or Have You Ever Used Any Other Forms Of Tobacco Or Nicotine? No Information not available 04/02/2023 How Many Days In The Past Year Have You Consumed 4 Or More Drinks? 5 Information not available 04/02/2023 Sex: Unknown Functional Status Question Answer Note LastModified by Organizat ion Details LastModified Time Do you have difficulty walking or climbing stairs? No Information not available 04/02/2023 Do you have transportation difficulties? No Information not available 04/02/2023 Are you able to walk? YESWOREST Information not available 04/02/2023 Are you able to care for yourself? Yes Information not available 04/02/2023 Do you have difficulty dressing or bathing? No Information not available 04/02/2023 Mental Status Question Answer Note LastModified by Organization D etails LastModified Time Do you have difficulty concentrating, remembering or making decisions? Yes Information no t available 04/02/2023 Family History Relationship Description Onset Age of this Age Resolved Age Notes LastModified by Organization Details LastModified Time Father Arthritis [email or web address] ey Not available 01/26/2024 09:54:28 Medical History Condition Response Muscle, Joint, or Bone Problems N High blood pressure Y Autoimmune Disorders N Anxiety N Mood Disorder, other N Breast Cancer N Blood Clot (DVT/PE) N Depression Y Nasal or Sinus Problems N Cancer, Other N Anemia N Bipolar Disorder N Kidney Disease/Disorder N Sleep Apnea Y Liver Disease/Disorder N Past Encounters Encounter ID Performer Location Encounter Start Date Encounter Closed Date Diagnosis/Indication Diagnosis SNOMED-CT Code Diagnosis ICD10 Code Diagnosis Note [id number] Gianna Sawyer, [facility] ([facility]) [address] [place] [address] 04/02/2023 11:26:46 04/02/2023 12:45:28 Depression screening 139094178 Z13.31 Depression Screening Negative Essential hypertension 08476717 I10 CONDITION STATUS: Chronic, {{poorly controlled * suboptim ally controlled but improving improving well controlled }}COMPLICA KELSEY BY: Hyperlipid emia, sleep apnea, insomnia, obesity-We discussed the importance of keeping your blood pressure at goal levels in order to reduce your risk of cardiovasc ular events such as heart attack and stroke.REC RAFA NS:-Double losartan up to 100 mcg daily, continue metoprolol - patient also is recommende d to have evaluation by cardiology as blood pressure seems to been uncontroll ed for a while-nurs ing visit for labs and BP check, bring monitor-Alber alexis is advised to take their medication regularly. Their blood pressure goal should be less than 140/90 and should be monitored on a regular basis. Also, it is important to eat a low-sodium (salt) diet, exercise regularly, and maintain a normal weight.If their blood pressure is not controlled , then please return sooner for reassessme nt.FOLLOW- UP: {{every 4-6 months aft er labs* 1 month}} Endocrine/ metabolic screening [id number] Z13.228 -All age-approp riate labs ordered -Overdue for wellness exam, encouraged to schedule at their earliest convenienc e -Follow-up after lab results are back Moderate r ecurrent major depression [id number] F33.1 CONDITION STATUS: Chronic, well controlled RECOMMENDA TION: Continue your medication .Related to the patient's state of chronic depression and anxiety, we do recommend to the patient caffeine avoidance, avoidance of stressful situations , proper sleeping habits, stress reduction and we reviewed with the patient again the counseling services available. We remind the patient that if they have any feelings of harming themselves or anyone else that they should call 911 immediatel y or go to emergency room. We encourage them to be always honest in their discussion s with us so that proper treatment can be employed.F OLLOW-UP: every 6 months Sleep apnea [id number] G47 .30 CONDITION STATUS: chronic, well controlled RECOMMENDA TION:-Avoi d sleeping on back, avoid alcohol, avoid caffeine-A dhere to a proper sleep hygiene schedule, get regular exercise, reduce stress, do not take naps-Thomas nue regular follow up with sleep specialist FOLLOW-UP: as needed Restless legs [id number] G 25.81 CONDITION STATUS: chronic, well controlled RECOMMENDA TION:-cont inue {{ropiniro le pramipe xole*}}-av oid caffeine-c ontinue mental alerting activities , exercise, leg massage, and heat packs as neededFOLL OW/UP: as needed Chronic insomnia [id number] 04 F51.04 CONDITION STATUS: chronic, well controlled RECOMMENDA TIONS: Continue medication . Risk and benefit of medication discussed with patient. Patient advised not to drive if experienci ng excessive drowsiness while on medication . Sleep hygiene reviewed. FOLLOW UP: as needed [id number] Gianna Sawyer, DO VM_PHX_Me [facility] ([facility]) [address] [place] [address] 04/03/2023 11:12:33 04/03/2023 12:48:38 Endocrine/metabolic screening [id number] Z13.228 [id number] Gianna Sawyer DO VM_PHX_Me [facility]) [address] [place] [address] 04/28/2023 09:37:15 04/28/2023 10:44:07 Depression screening 188973179 Z13.31 Depression Screening Negative Essential hypertension 37046308 I10 CONDITION STATUS: Chronic, {{poorly controlled suboptima lly controlled but improving* improving well controlled }}COMPLICA KELSEY BY: Hyperlipid emia, sleep apnea, insomnia, obesity-We discussed the importance of keeping your blood pressure at goal levels in order to reduce your risk of cardiovasc ular events such as heart attack and stroke.REC RAFA NS:-Contin ue losartan up to 100 mg daily, continue hydrochlor othiazide 12.5 as well as carvedilol 6.25 (by cardiology )-Patient is advised to take their medication regularly. Their blood pressure goal should be less than 140/90 and should be monitored on a regular basis. Also, it is important to eat a low-sodium (salt) diet, exercise regularly, and maintain a normal weight.If their blood pressure is not controlled , then please return sooner for reassessme nt.FOLLOW- UP: {{every 4-6 months* af ter labs 1 month}} Moderate r ecurrent major depression [id number] F33.1 CONDITION STATUS: Chronic, well controlled RECOMMENDA TION: Continue your medication .Related to the patient's state of chronic depression and anxiety, we do recommend to the patient caffeine avoidance, avoidance of stressful situations , proper sleeping habits, stress reduction and we reviewed with the patient again the counseling services available. We remind the patient that if they have any feelings of harming themselves or anyone else that they should call 911 immediatel y or go to emergency room. We encourage them to be always honest in their discussion s with us so that proper treatment can be employed.F OLLOW-UP: every 6 months Sleep apnea 06449438 G47 .30 CONDITION STATUS: chronic, well controlled RECOMMENDA TION:-Avoi d sleeping on back, avoid alcohol, avoid caffeine-A dhere to a proper sleep hygiene schedule, get regular exercise, reduce stress, do not take naps-Thomas nue regular follow up with sleep specialist FOLLOW-UP: as needed Restless legs 40286634 G 25.81 CONDITION STATUS: chronic, well controlled RECOMMENDA TION:-cont inue {{ropiniro le pramipe xole*}}-av oid caffeine-c ontinue mental alerting activities , exercise, leg massage, and heat packs as neededFOLL OW/UP: as needed Chronic insomnia [id number] 04 F51.04 CONDITION STATUS: chronic, well controlled RECOMMENDA TIONS: Continue medication . Risk and benefit of medication discussed with patient. Patient advised not to drive if experienci ng excessive drowsiness while on medication . Sleep hygiene reviewed. FOLLOW UP: as needed Prediabetes [id number] R7 3.03 A1C 5.7 labs Apr 2023 CONDITION STATUS: chronic, {{well-con trolled burkett boptimally controlled * poorly controlled }}, complicate d by {{hypertes ion*}}, {{obesity* overweigh t}}, {{hyperlip idemia*}}R ECOMMENDAT IONS:Chinyere nt was reminded that their pre-diabet es is best controlled by eating a healthy reduced carbohydra te diet, regular exercise and by seeing their physician every 6 months or as directed.P atient was advised that by keeping their blood sugar and HgbA1C under control, they may decrease their risk of progressio n to diabetes as well as its complicati ons.Lab work ordered and to be done before next appointmen t.FOLLOW-U P: {{every 4-6 months* af ter labs}}will see PCP in [place] in the summer and then come back here in the fall Obesity 089941746 E66.9 CONDITION STATUS: {{Poorly controlled suboptima lly controlled but improving improving Chronic, Poorly controlled #}} RECOMMENDA TIONS: -Patient was encourage to lose 10% of their weight by decreasing caloric intake, reducing carbohydra te and fat intake, and increasing their exercise to at least 150 minutes a week. -The adverse health effects of obesity was discussed with patient. FOLLOW-UP: as needed [id number] Gianna Sawyer, DO VM_PHX_Me [facility] ([place]) [address] [place] [address] 01/26/2024 09:34:04 01/26/2024 10:44:55 Prediabetes 106589095 R73.03 A1C 5.7 labs Apr 2023 CONDITION STATUS: chronic, suboptimal ly controlled , complicate d by hypertensi on, obesity, hyperlipid emia RECOMMENDA TIONS: Patient was reminded that their pre-diabet es is best controlled by eating a healthy reduced carbohydra te diet, regular exercise and by seeing their physician every 6 months or as directed. Patient was advised that by keeping their blood sugar and HgbA1C under control, they may decrease their risk of progressio n to diabetes as well as its complicati ons. Lab work ordered and to be done before next appointmen t. FOLLOW-UP: every 4-6 months; in the spring and summer will see PCP in [place] Essential hypertension [id number] I10 CONDITION STATUS: Chronic, suboptimal ly controlled but improvingC OMPLICATED BY: Hyperlipid emia, sleep apnea, insomnia, obesity-We discussed the importance of keeping your blood pressure at goal levels in order to reduce your risk of cardiovasc ular events such as heart attack and stroke.FÉLIX CRAIG NS:-Contin ue losartan, hydrochlor othiazide as well as carvedilol (by cardiology )-Patient is advised to take their medication regularly. Their blood pressure goal should be less than 140/90 and should be monitored on a regular basis. Also, it is important to eat a low-sodium (salt) diet, exercise regularly, and maintain a normal weight.If their blood pressure is not controlled , then please return sooner for reassessme nt.FOLLOW- UP: every 4-6 months Moderate r ecurrent major depression 02121486 F33.1 Maintain current treatment with Wellbutrin . Evaluate necessity of therapy continuati on at future appointmen ts if symptoms remain stable. CONDITION STATUS: Chronic, well controlled RECOMMENDA TION: Continue your medication . Related to the patient's state of chronic depression and anxiety, we do recommend to the patient caffeine avoidance, avoidance of stressful situations , proper sleeping habits, stress reduction and we reviewed with the patient again the counseling services available. We remind the patient that if they have any feelings of harming themselves or anyone else that they should call 911 immediatel y or go to emergency room. We encourage them to be always honest in their discussion s with us so that proper treatment can be employed. FOLLOW-UP: every 6 months Sleep apnea 23628191 G47 .30 Continue with current management and evaluate for potential need for additional interventi on. CONDITION STATUS: chronic, well controlled RECOMMENDA TION: -Avoid sleeping on back, avoid alcohol, avoid caffeine -Adhere to a proper sleep hygiene schedule, get regular exercise, reduce stress, do not take naps -Continue regular follow up with sleep specialist FOLLOW-UP: as needed Restless legs 47372919 G 25.81 CONDITION STATUS: chronic, well controlled RECOMMENDA TION:-cont inue pramipexol e -avoid caffeine -continue mental alerting activities , exercise, leg massage, and heat packs as needed FOLLOW/UP: as needed Chronic insomnia 3389492 04 F51.04 CONDITION STATUS: chronic, well controlled RECOMMENDA TIONS: Continue medication . Risk and benefit of medication discussed with patient. Patient advised not to drive if experienci ng excessive drowsiness while on medication . Sleep hygiene reviewed. FOLLOW UP: as needed Obesity [id number] E66.9 CONDITION STATUS: Chronic, Poorly controlled RECOMMENDA TIONS: -Patient was encourage to lose 10% of their weight by decreasing caloric intake, reducing carbohydra te and fat intake, and increasing their exercise to at least 150 minutes a week. -The adverse health effects of obesity was discussed with patient. FOLLOW-UP: as needed Health Concerns Section Related Observation LastModified by Organization Detai ls LastModified Time None Recorded Concern Status LastModified by Organization Details LastModified Time None Recorded Advance Directives Directive N: Payers Encounter Date Sequence Insurance Name Policy Number Policy Corcoran Covered Member ID Corcoran Member ID Guarantor Name 04/02/2023 1 [facility] (MEDICARE REPLACEMENT/A DVANTAGE - PPO) [id number] Mukul Weems Vought [id number] Mukul Vought 04/03/2023 1 [facility] (MEDICARE REPLACEMENT/A DVANTAGE - PPO) [id number] Mukul Weems Vought [id number] Mukul Vought 04/28/2023 1 [facility] (MEDICARE REPLACEMENT/A DVANTAGE - PPO) [id number] Mukul D Vought [id number] Mukul Vought 01/26/2024 1 [facility] (MEDICARE REPLACEMENT/A DVANTAGE - PPO) [id number] Mukul D Vought [id number] Mukul Marleyught Notes Date Note Type Note Provider Name and Address Organization Details Recorded Time 4 text/html New patient presenting today to establish care and discuss the following concerns: Patient presents for evaluation of their hypertension.Dizziness for 6 months, with some neck painUsually in the morningBP 165/90 inoffice todayMetoprolol ER 100mg and Losartan 50mg for BP currentlyComplicated by {{obesity* overweight}} {{hyperlipidemia*}}EDUARDO This was diagnosed several years ago. Symptoms: denies any shortness of breath, denies chest pain, denies worsening leg swelling. Medication: {{The patient is taking their blood pressure medications consistently, without any side effects.* not on any currently. not on any currently, well managed with lyfestyle. non-compliant.} } Home blood pressures: {{below 140/90 not tchecking not checking consistently#}} Depression was diagnosed many years ago.Patient is doing well, PHQ2 score is 0 today.Current medications: fluoxetineSymptoms: asymptomaticPresently, patient denies suicidal ideation. Patient presents with obstructive sleep apnea Symptoms: snoring Patient is currently using CPAP nightly: no Patient reports improvement in sleep and energy. Patient presents with restless leg syndromeSymptoms: jerking and cramping of legs at nightPatient is currently taking pramipexolePatient reports medication to be effective.Denies any side effects. Patient has suffered from difficulty initiating sleep for years. Patient's insomnia is manifested by: {{both difficulty falling asleep and frequent awakenings* both difficulty falling asleep waking up too early}} It is estimated by the patient that they are obtaining approximately 4-6 hours of sleep nightly with the use of medications. Reports no associated symptoms, anxiety, depressive symptoms, excessive snoring. Denies significant stressors. Current meds/supplements: {{ none trazodone, work well#}} {{The patient denies any side effect from the medication.*}} Gianna Sawyer, DO [address], [place], [address], [facility]- [place] 04/11/2023 22:51:51 4 text/html Established patient presenting today to discuss the following: Patient presents for evaluation of their hypertension.Dizziness for 6 months, with some neck pain - all now resolved as got his BP controlledComplicated by {{obesity* overweight}} {{hyperlipidemia*}}OSAThis was diagnosed several years ago.Symptoms: denies any shortness of breath, denies chest pain, denies worsening leg swelling.Medication:{{The patient is taking their blood pressure medications consistently, without any side effects.* not on any currently. not on any currently, well managed with lyfestyle. non-compliant.} }Home blood pressures: {{below 140/90 not tchecking mostly below 140/90#}}Per pt request referred to cardiology and patient was just evaluatedSome workup and echocardiogram currently pending, we don't have records yet. Regarding pre-diabetes: Most recent labs with hemoglobin A1c is at {{ 5.7#}}. Complicated by {{hypertension*}}, {{overweight obesity* enio re obesity}}, {{hyperlipidemia*}}. Patient denies any polydipsia, polyuria, polyphagia. Denies any neuropathic pain in lower extremities. Patient reports they are making an effort to eat healthy. Reports regular exercise: {{yes* no}}. Depression was diagnosed many years ago.Patient is doing well, PHQ2 score is 0 today.Current medications: fluoxetineSymptoms: asymptomaticPresently, patient denies suicidal ideation. Patient presents with obstructive sleep apneaSymptoms: snoringPatient is currently using CPAP nightly: noPatient reports improvement in sleep and energy. Patient presents with restless leg syndromeSymptoms: jerking and cramping of legs at nightPatient is currently taking pramipexolePatient reports medication to be effective.Denies any side effects. Patient has suffered from difficulty initiating sleep for years.Patient's insomnia is manifested by: {{both difficulty falling asleep and frequent awakenings* both difficulty falling asleep waking up too early}}It is estimated by the patient that they are obtaining approximately 4-6 hours of sleep nightly with the use of medications.Reports no associated symptoms, anxiety, depressive symptoms, excessive snoring.Denies significant stressors.Current meds/supplements: {{ none trazodone, work well#}}{{The patient denies any side effect from the medication.*}} Patient presents with {{obesity* severe obesity overweight}} Medication for weight loss management: {{ none*}} Exercising/week: {{ none rgular#}} Typical daily diet: {{ regular, well balanced* low fat low carb low fat, low carb}} Gianna Sawyer DO [address], [place], [address], 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 Gianna Sawyer DO [address], [place], [address], [facility] - [facility]- [place] 02/02/2024 04:47:03
--- OUTSIDE RECORDS SUMMARY | 2024-07-01 23:20 | XMS_ITS | Continuity of Care Document ---
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 Name Role Phone Evelyn Mcwilliams MD Unavailable Unavailable Allergies, Adverse Reactions, Alerts Substance Reaction Status Criticality No Known Allergies Active No Inform ation Medications Medication Instructions Dosage Effective Dates (start - stop) Status Comments atorvastatin 40 mg tablet take 1 tablet by oral route every day 40 MG - Active losartan 100 mg tablet Take 1 tablet by mouth once daily - Active hydrochlorothiazide 12.5 mg tablet take 1 tablet by oral route every day 12.5 MG - Active carvedilol 3.125 mg tablet take 1 tablet by oral route 2 times every day with food 3.125 MG - Active fluoxetine 20 mg capsule take 1 capsule by oral route every day 20 MG - Active tamsulosin 0.4 mg capsule take 1 capsule by oral route every day 0.4 MG - Active pramipexole 1 mg tablet take 1 tablet by oral route every day 1 MG - Active finasteride 5 mg tablet take 1 tablet by oral route every day 5 MG - Active bupropion HCl XL 300 mg 24 hr tablet, extended release take 1 tablet by oral route every day 300 MG - Active atorvastatin 20 mg tablet take 1 tablet by oral route every day 20 MG - No Longer Active Procedures Procedure Date OFFICE/OUTPATIENT VISIT, EST OFFICE/OUTPATIENT VISIT, EST ELECTROCARDIOGRAM, COMPLETE OFFICE/OUTPATIENT VISIT, EST TTE W/DOPPLER, COMPLETE OFFICE/OUTPATIENT VISIT, NEW ELECTROCARDIOGRAM, COMPLETE Advance Directives Directive Yes / No Effective Date File Name No Information Encounters Encounter Description Practice Location Reason(s) For Visit Diagnoses Date Provider Providers Copied on Encounter OFFICE/OUTPA TIENT VISIT, [facility], [address] [address], [place], [address], [place] tel:[phone] 43 [facility] Follow up (chief complaint) Body mass index [BMI] 30.0-30.9, adultHTNCardiac murmur, unspecifiedHype rlipidemia 5 [facility]. [address], [address] [facility], [place], [place], [id number] , [place]. tel:[phone] Referring Provider: Cedric Haile N [address], [place], [address]. tel:[phone] [facility], [address], [address], [place] tel:[phone] 43 [facility] No Information 5 [facility]. [address], [address] [facility], [place], [place], [id number] , [place]. tel:[phone] OFFICE/OUTPA TIENT VISIT, [facility], [address], [address], [place] tel:[phone] 43 [facility] Follow up (chief complaint) HTNCardiac murmur, unspecifiedHype rlipidemiaBody mass index [BMI] 30.0-30.9, adult 4 [facility]. [address], [address], [place], [place], [id number] , [place]. tel:[phone] Referring Provider: Carlton Haile[address], [place], [address]. tel:[phone] OFFICE/OUTPA TIENT VISIT, [facility], [address] [address], [place], [address], [place] tel:[phone] 43 [facility] Follow up (chief complaint) HTNCardiac murmur, unspecified 4 [facility]. [address], [address], [place], [place], [id number] , [place]. tel:[phone] Referring Provider: Gianna Sawyer, [address], [place], [address]. tel:[phone] [facility], [address], [address], [phone] 43 [facility] Cardiac murmur, unspecifiedEsse ntial (primary) hypertension 4 [facility]. [address], [address] [facility], [place], [place], [id number] , [place]. tel:[phone] Referring Provider: Gianna Sawyer, [address], [place], [address]. tel:[phone] [facility], [address], [address], [place] [phone] 43 [facility] No Information 4 Sandy Gimenez. [address] [facility], [address] [facility], [place], [place], [id number] , [place]. tel:[phone] OFFICE/OUTPA TIENT VISIT, NEW [facility], [address], [address], [place] tel:[phone] 43 [facility] New patient (chief complaint) Body mass index [BMI] 31.0-31.9, adultHTNCardiac murmur, unspecified 4 Poppy Rivas. [address], [address] [facility], [place], [place], [id number] , [place]. [phone] Referring Provider: Gianna Sawyer, [address], [place], [address]. tel:[phone] Family History Family Member Type Diagnosis Age At Onset Problem Family history of Cancer, co samuel Problem Family history of Cancer, bl adder Problem Family history of Hypertensi on Payers Payer name Insurance type Covered alliance party ID Scar ruiz(s) BCBS Out Of Area CI [id number] Social History Type Description Quantity Date Captured [...] Percentile BMI percentile Pulse Ox Inhaled Ox 1:19 PM 70.00 in 97.522 kg (215.00 lbs) 30.8 5 kg/m eter (2) 78 /min 140/98 mm[Hg] 18 /min 2.19 meter(2) 94 % Chief Complaint And Reason For Visit From encounter dated '04/08/2024 13:30'. Follow up (chief complaint). Description: 68M with hypertension here for follow up.Here to f/u CACS- 30, all in LAD.He feels well and denies complaints. Reason For Referral Reason For Referral No Information Plan Of Treatment Date Type Action Status Goal Lifestyle educat ion regarding diet completed Goal Lifestyle educat ion regarding diet completed Goal Lifestyle educat ion regarding diet completed Future Order: Radiology Order Ca lcium Score ([id number]), Ordered on: Ordered Future Order: Radiology Order Ec hocardiogram, Complete Transthoracic ([id number]), Ordered on: Ordered History Of Present Illness Encounter Date Complaint History Of Prese nt Illness Follow up 68M with hyperte nsion here for follow up.Here to f/u CACS - 30, all in LAD.He feels well and denies complaints. Follow up 68M with hyperte nsion here for follow up.Feels well and denies complaints. He was in [place] for the summer and said he felt fine over that time. Does not check his blood pressure has frequently about whenever he does says it is usually 110s to 120s. Denies any lightheadedness or dizziness. He was says he was taking carvedilol only once a day but is now taking it twice a day reduced dose 3.125 mg.He was EKGs normal sinus rhythm with PACs Follow up 67M referred for evaluation of [...] etc. 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 Functional Status Date Functional Assessmen t No Information Instructions Date Instruction Additional Infor yelena Given Exercise Guidelines Weight Loss Discussion Lifestyle education regarding di et Related to Body mass index [BMI] 30.0-30.9, adult Lifestyle education regarding di et Related to Body mass index [BMI] 30.0-30.9, adult Given Exercise Guidelines Lifestyle education regarding di et Related to Body mass index [BMI] 31.0-31.9, adult Assessments Type Assessment Date assessment Body mass index [BMI] 30.0-30.9, adult assessment HTN assessment Cardiac murmur, unspecified assessment Hyperlipidemia Patient Care Teams Name Effective Dates (start - stop) Status Members No Information
[2024-07-01 23:24] VITALS: BP 151/84; PULSE 67; RESP 16; TEMP 36.6; O2SAT 97; BMI 30.8
[2024-07-01 23:40] LABS: Appearance Urine Clear (Clear); Bilirubin Urine Negative (Negative); Blood Urine Trace-intact (Negative); Color Urine Yellow (Yellow); Glucose Urine Negative (Negative); Ketones Urine Negative (Negative); Leukocyte Esterase Urine Negative (Negative); Nitrite Urine Negative (Negative); Protein Urine Negative (Negative); pH Urine 6.5 (5.0-8.5)
[2024-07-01 23:45] LABS: RBC Urine 0-2 (0-2); WBC Urine 0-2 (0-5)
--- NOTE | 2024-07-02 00:41 | ED.GENADULT ---
HPI - General Adult General Chief complaint: Abdominal Pain Stated complaint: Lower abdominal/R flank pain Time Seen by Provider: 07/02/24 00:25 History of Present Illness HPI narrative: Patient reports intermittent pain in their right abdomen, groin and back, starting a few weeks ago but the pain is worse tonight. Patient was seen at [facility] today for similar symptoms. 68-year-old man presenting to the emergency department with concern of right low abdominal area pain. Was seen earlier today in clinic with concern of hernia and epididymitis. Prescribed meloxicam which he has not yet picked up. Worse with breathing and more noticeable at night. Not really exacerbated with ambulating. Last week or so it has been more intense and radiating from the right low abdomen into his back. Never noticed hematuria. Sometimes it does hurt into his right testicle but not currently. This has been going on off over the last couple of months no worsening. Does play pickleball. History of aortic root dilatation Related Data Home Medications ?Medication ?Instructions ?Recorded ?Confirmed finasteride 5 mg tablet 5 mg PO DAILY 05/21/23 07/01/24 losartan 100 mg tablet 100 mg PO QDAY 09/21/23 07/01/24 Previous Rx's ?Medication ?Instructions ?Recorded amoxicillin 500 mg capsule 2,000 mg (4 x 500 mg) PO ONCE #4 07/16/23 caps methylprednisolone 4 mg tablets in See Rx Instructions PO PER PKG DIR 11/19/23 a dose pack (Medrol (Nemesio)) #21 ea atorvastatin 40 mg tablet 40 mg PO QHS #90 tabs 03/22/24 bupropion HCl 300 mg 24 hr tablet, 300 mg PO DAILY #90 tabs 03/22/24 extended release carvedilol 3.125 mg tablet 3.125 mg PO BID #180 tabs 03/22/24 fluoxetine 20 mg capsule (Prozac) 20 mg PO QDAY #90 caps 03/22/24 hydrochlorothiazide 12.5 mg tablet 12.5 mg PO DAILY #90 tabs 03/22/24 pramipexole 1 mg tablet 1 mg PO QPM #90 tabs 03/22/24 tamsulosin 0.4 mg capsule 0.8 mg (2 x 0.4 mg) PO DAILY #180 03/22/24 caps meloxicam 15 mg tablet 15 mg PO QDAY #30 tabs 07/01/24 Allergies Allergy/AdvReac Type Severity Reaction Status Date / Time No Known Allergies Allergy Verified 07/02/24 01:33 Review of Systems Status of ROS: Reports: 6 or more systems reviewed and unremarkable except as noted in History and below PFSH [facility] Medical History Prediabetes ?R73.03 - Prediabetes (ICD-10) Back pain ?M54.9 - Dorsalgia, unspecified (ICD-10) DVT (deep venous thrombosis) ?I82.409 - Acute embolism and thrombosis of unspecified deep veins of unspecified lower extremity (ICD-10) Surgical History S/P total knee arthroplasty (11/19/22) ?Z96.659 - Presence of unspecified artificial knee joint (ICD-10) History of open reduction and internal fixation (ORIF) procedure (10/06/22) ?Z98.890 - Other specified postprocedural states (ICD-10) History of nasal septoplasty (06/03/13) ?Z98.890 - Other specified postprocedural states (ICD-10) History of umbilical hernia repair (03/23/17) ?Z98.890 - Other specified postprocedural states (ICD-10) ?Z87.19 - Personal history of other diseases of the digestive system (ICD-10) H/O inguinal hernia repair (03/23/17) ?Z98.890 - Other specified postprocedural states (ICD-10) ?Z87.19 - Personal history of other diseases of the digestive system (ICD-10) 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) ?Z96.651 - Presence of right artificial knee joint (ICD-10) History of rotator cuff surgery ?Z98.890 - Other specified postprocedural states (ICD-10) History of surgical amputation of finger ?Z89.029 - Acquired absence of unspecified finger(s) (ICD-10) Status post total shoulder replacement ?Z96.619 - Presence of unspecified artificial shoulder joint (ICD-10) Family History Father Bladder cancer Mother Colorectal cancer High blood pressure Social History Narrative: Alcohol ingestion, 1-4 drinks/week Does not use illicit drugs Nonsmoker, lifelong 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 What is your current living situation?: I presently have a place to live In past 12 months, lack of transportation kept you from medical appts, meetings, work, or getting things needed for daily living: no In the past 12 mos, have been you worried that your food would run out before you had money to buy more?: never true In the past 12 mos, the food you bought just didn't last and you didn't have money to buy more?: never true Smoking Status: Never smoker Do you use any of these nicotine containing products: None Second hand tobacco smoke exposure: No How often do you have a drink containing alcohol: 2-4 times a month Alcohol type: beer How many standard drinks containing alcohol do you have on a typical day: 1 or 2 How often do you have six or more drinks on one occasion: Never AUDIT-C Alcohol total score: 2 Non-prescribed substance use: denies use Caffeine: Yes (Diet Coke, 2 cans/week) How often does anyone, including family, friends and others, physically hurt you: never How often does anyone, including family, friends and others, insult or talk down to you: never How often does anyone, including family, friends and others, threaten you with harm: never How often does anyone, including family, friends and others, scream or curse at you: never service: No Exam Narrative: Exam Narrative: Pleasant. NAD. Heart in regular rate and rhythm. Abdomen with pain that appears to be quite deep to palpation in the right abdominal area. I do not appreciate any wall defect. He does not have pain to palpation of the genitals. Abdomen without unusual pulsatile mass. Pain is not elicited with flexion or extension of the leg. Maybe a little more with deeper flexion of the thigh No flank pain. Well-perfused peripherally. Const: Vital Signs, click to edit/add: Vital Signs - 24 hr 07/01/24 23:24 Temperature 97.9 F Pulse Rate [Left P ulse Oximeter] 67 Respiratory Rate 16 Blood Pressure [Ri ght Upper Arm] 151/84 H Pulse Oximetry 97 Oxygen Delivery Me thod Room Air Documenting provider has reviewed patient's vital signs: yes Course Vital Signs Vital signs: Initial Vital Signs Temperature 97.9 F 07/01/24 23:24 Temperature Source Temporal Artery Scan 07/01/24 23:24 Pulse Rate 67 07/01/24 23:24 Respiratory Rate 16 07/01/24 23:24 Blood Pressure 151/84 H 07/01/24 23:24 Blood Pressure Mean 106 H 07/01/24 23:24 Blood Pressure Position Sitting 07/01/24 23:24 Pulse Oximetry 97 07/01/24 23:24 Oxygen Delivery Method Room Air 07/01/24 23:24 Vital Signs Temperature 97.9 F 07/01/24 23:24 Pulse Rate 67 07/01/24 23:24 Respiratory Rate 16 07/01/24 23:24 Blood Pressure 151/84 H 07/01/24 23:24 Pulse Oximetry 97 07/01/24 23:24 Oxygen Delivery Method Room Air 07/01/24 23:24 Temperature 97.9 F 07/01/24 23:24 Pulse Rate 67 07/01/24 23:24 Respiratory Rate 16 07/01/24 23:24 Blood Pressure 151/84 H 07/01/24 23:24 Pulse Oximetry 97 07/01/24 23:24 Oxygen Delivery Method Room Air 07/01/24 23:24 Medications Administered Medications: Discontinued Medications Generic Name Dose Route Start Last Admin Trade Name Freq PRN Reason Stop Dose Admin Sodium Chloride 500 mls @ 500 mls/hr 07/02/24 00:51 07/02/24 01:57 0.9 % Sodium Chloride 500 Ml IV 07/02/24 01:50 Infused .Q1H ONE Infusion Medical Decision Making [facility] Narrative Medical decision making narrative: Diverticulitis? Intermittent ureteral stones and spasm? Hernia? Worse case might be dissecting vasculature. Does not appear to have epididymal area pain at this point. I wonder if these might be stones that are intermittently passing. Will assess vasculature with noted dilatation of aortic root. Requested CT imaging of abdomen and pelvis. On independent review I do see nephrolithiasis and a ureteral stone low in the proximal left ureter. Prostatomegaly as well On reexamination does have some reproducible pain in the suprapubic and just right area with more marked flexion of the right thigh Radiology over-read below INDICATION: Right lower abdominal pain. TECHNIQUE: CT abdomen and pelvis acquired with 106 cc Isovue 370 IV contrast. COMPARISON: CT abdomen and pelvis 03/27/2015. FINDINGS: Lower chest: Unremarkable. Liver: Numerous hepatic cysts. Gallbladder and bile ducts: Unremarkable. Pancreas: Unremarkable. Spleen: Unremarkable. Adrenal glands: Unremarkable. Kidneys: Symmetric renal enhancement. Left lower pole renal calculus measures 5 mm. Left proximal to mid ureteral calculus measuring 6 mm (series 2, image 99). No significant hydronephrosis or hydroureter. No right-sided urinary calculi. GI tract: No bowel obstruction. Colonic diverticulosis without acute diverticulitis. No suspicious bowel wall thickening. Normal appendix. Vasculature: No abdominal aortic aneurysm. Grossly patent vasculature. Lymph nodes: No suspicious lymphadenopathy. Peritoneum/Abdominal Wall: No ascites or pneumoperitoneum. No acute abdominal wall abnormality. Pelvis: Normal bladder. Prostatomegaly, measuring up to 6.3 cm in transverse dimension. Bones/soft tissues: No acute osseous abnormality. Fatty infiltration of the right rectus femoris musculature, incompletely visualized, new compared to the prior CT. IMPRESSION: 1. Left proximal to mid ureteral calculus measuring 6 mm. No significant associated hydronephrosis or hydroureter. Additional left lower pole renal calculus measuring 5 mm. 2. Colonic diverticulosis without acute diverticulitis. 3. Prostatomegaly. 4. Fatty infiltration of the right rectus femoris musculature, new since the prior exam, incompletely assessed on the current examination. Clinical correlation recommended. Please note that all CT scans at this facility use dose modulation, iterative reconstruction, and/or weight-based dosing when appropriate to reduce radiation dose to as low as reasonably achievable. 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 He notes that this has been present since remote injury. Discussed all findings with Mr. Castillo It seems there is a groin strain of some sort along with what might be some intermittent ureteral stones. Did request given size of stone, a KUB for follow-up if necessary. On my independent read the stone consistent with CT imaging is visible in the left mid/lower ureter. Indication: Localization of left-sided ureteral stone. Abdominal pain. Technique: Abdomen 1 view. Comparison: CT abdomen pelvis 07/02/2024. Findings/Impression: Soft tissue calcification in the region of the left proximal to mid ureter measuring 6 mm, projecting just to the left of the left L3 transverse process, corresponds to expected region of left ureteral calculus identified on same-day CT. Nonobstructive bowel gas pattern. No radiographic evidence of free intraperitoneal air. Excreted contrast is noted within the urinary system. No acute osseous abnormality. Dictated by Smooth Portillo MD @ 07/02/2024 3:03:49 AM See patient discharge plan for further discussion Stay well-hydrated. I do see tamsulosin, one brand-name can be Flomax, on your medication list. Continue to take that. Can be helpful with ureteral spasms. For the time being over this next week can take 600 mg of ibuprofen 3 times daily. Maybe take a little bit of food. Prescribing also some Percocet from [facility]. This is an opiate and can make you constipated. On the days you take this you might want to take 1 or 2 tablets of a senna-containing bowel aid. Can take up to 1000 mg of acetaminophen per dose. Keep in mind that each tablet of Percocet contains 325 mg of acetaminophen. Would encourage you to strain your urine over the next week. We have done a KUB x-ray to try to locate the left-sided ureteral stone which can be helpful in follow-up for comparison images. If you have persistent increase in pain, probably left-sided, and this is continuing beyond another 5 days, would follow up for re-evaluation. See handout on groin strain. PT might be helpful if not improving. Lab Data Lab results reviewed: Yes I reviewed the patient's lab results Labs: Lab Results 07/01/24 07/02/24 07/02/24 Range/Units 23:30 01:00 01:15 WBC 10.18 (4.50-11.00) K/uL RBC 6.19 H (4.30-5.90) m/uL Hgb 16.5 (13.5-17.5) gm/dL Hct 50.2 (37.0-53.0) % MCV 81 (80-100) fL MCH 27 (26-34) pg MCHC 33 (32-36) gm/dL RDW Coeff of Tracie 13.3 (11.5-15.5) % Plt Count 143 (140-440) K/uL Neut % (Auto) 50.4 (42.0-72.0) % Lymph % (Auto) 39.0 (20-44) % [place]urt[place] % (Auto) 7.7 (0.0-11.0) % Eos % (Auto) 2.1 (0.0-7.0) % Baso % (Auto) 0.3 (0.0-3.0) % Neut # (Auto) 5.14 (1.7-7.0) K/uL Lymph # (Auto) 3.97 H (0.90-2.90) K/uL M[place]urt[place] # (Auto) 0.80 (0.00-0.90) K/UL Eos # (Auto) 0.21 (0.00-0.50) K/uL Baso # (Auto) 0.03 (0.00-0.30) K/uL Abs Immat Gran (auto) 0.05 (0.00-0.30) K/uL Imm/Tot Granulo (auto) 0.5 % D-Dimer Quant (PE/DVT) 0.04 (0.00-0.50) ug/ml Sodium 142 (135-149) mmol/L Potassium 4.0 (3.6-5.1) mmol/L Chloride 104 (96-114) mmol/L Carbon Dioxide 25 (20-32) mmol/L Anion Gap 13 (7-15) mEq/L BUN 24 (7-30) mg/dL Creatinine 1.0 (0.5-1.5) mg/dL Estimated Creat Clear 73.00 Estimated GFR 82 ml/min Glucose 104 (60-115) mg/dL Calcium 9.2 (8.4-10.6) mg/dL Urine Color Yellow (Yellow) Urine Appearance Clear (Clear) Urine pH 6.5 (5.0-8.5) Ur Specific Gaffney 1.020 (1.000-1.030) Urine Protein Negative (Negative) Urine Glucose (UA) Negative (Negative) Urine Ketones Negative (Negative) Urine Blood Trace-intact A (Negative) Urine Nitrite Negative (Negative) Urine Bilirubin Negative (Negative) Urine Urobilinogen 1.0 (0.2-1.0) Ur Leukocyte Esterase Negative (Negative) Urine RBC 0-2 (0-2) Urine WBC 0-2 (0-5) Ur Squamous Epith Cells None (None-Few) Urine Bacteria None (None) POC Creatinine 1.0 (0.6-1.3) mg/dl Discharge Plan Discharge Clinical Impression: Left ureteral stone, Nephrolithiasis, Groin strain Patient Disposition: Home w/ Parent or Adult Condition: Stable Additional Instructions: Stay well-hydrated. I do see tamsulosin, one brand-name can be Flomax, on your medication list. Continue to take that. Can be helpful with ureteral spasms. For the time being over this next week can take 600 mg of ibuprofen 3 times daily. Maybe take a little bit of food. Prescribing also some Percocet from [facility]. This is an opiate and can make you constipated. On the days you take this you might want to take 1 or 2 tablets of a senna-containing bowel aid. Can take up to 1000 mg of acetaminophen per dose. Keep in mind that each tablet of Percocet contains 325 mg of acetaminophen. Would encourage you to strain your urine over the next week. We have done a KUB x-ray to try to locate the left-sided ureteral stone which can be helpful in follow-up for comparison images. If you have persistent increase in pain, probably left-sided, and this is continuing beyond another 5 days, would follow up for re-evaluation. See handout on groin strain. PT might be helpful if not improving. Prescriptions: No Action finasteride 5 mg tablet 5 mg PO DAILY methylprednisolone [Medrol (Nemesio)] 4 mg tablets,dose pack See Rx Instructions PO PER PKG DIR Qty: 21 0RF Rx Instructions: PO PER PKG DIR losartan 100 mg tablet 100 mg PO QDAY meloxicam 15 mg tablet 15 mg PO QDAY Qty: 30 1RF amoxicillin 500 mg capsule 2,000 mg PO ONCE Qty: 4 2RF Rx Instructions: Take 4 capsules by mouth 1 hour prior to dental appointment atorvastatin 40 mg tablet 40 mg PO QHS Qty: 90 1RF bupropion HCl 300 mg tablet extended release 24 hr 300 mg PO DAILY Qty: 90 1RF carvedilol 3.125 mg tablet 3.125 mg PO BID Qty: 180 1RF Rx Instructions: must administer with a meal/food fluoxetine [Prozac] 20 mg capsule 20 mg PO QDAY Qty: 90 1RF hydrochlorothiazide 12.5 mg tablet 12.5 mg PO DAILY Qty: 90 1RF pramipexole 1 mg tablet 1 mg PO QPM Qty: 90 1RF tamsulosin 0.4 mg capsule 0.8 mg PO DAILY Qty: 180 3RF Follow Up/Referrals: Beena Pablo MD [Primary Care Provider] - Stand Alone Forms: [employer] Info Instructions
--- NOTE | 2024-07-02 00:49 | CRLHL7_ITS ---
For Patients: As a result of the Century Cures Act, medical imaging exams and procedure reports are released immediately into your electronic medical record. You may view this report before your referring provider. If you have questions, please contact your health care provider. INDICATION: Right lower abdominal pain. TECHNIQUE: CT abdomen and pelvis acquired with 106 cc Isovue 370 IV contrast. COMPARISON: CT abdomen and pelvis 03/27/2015. FINDINGS: Lower chest: Unremarkable. Liver: Numerous hepatic cysts. Gallbladder and bile ducts: Unremarkable. Pancreas: Unremarkable. Spleen: Unremarkable. Adrenal glands: Unremarkable. Kidneys: Symmetric renal enhancement. Left lower pole renal calculus measures 5 mm. Left proximal to mid ureteral calculus measuring 6 mm (series 2, image 99). No significant hydronephrosis or hydroureter. No right-sided urinary calculi. GI tract: No bowel obstruction. Colonic diverticulosis without acute diverticulitis. No suspicious bowel wall thickening. Normal appendix. Vasculature: No abdominal aortic aneurysm. Grossly patent vasculature. Lymph nodes: No suspicious lymphadenopathy. Peritoneum/Abdominal Wall: No ascites or pneumoperitoneum. No acute abdominal wall abnormality. Pelvis: Normal bladder. Prostatomegaly, measuring up to 6.3 cm in transverse dimension. Bones/soft tissues: No acute osseous abnormality. Fatty infiltration of the right rectus femoris musculature, incompletely visualized, new compared to the prior CT. IMPRESSION: 1. Left proximal to mid ureteral calculus measuring 6 mm. No significant associated hydronephrosis or hydroureter. Additional left lower pole renal calculus measuring 5 mm. 2. Colonic diverticulosis without acute diverticulitis. 3. Prostatomegaly. 4. Fatty infiltration of the right rectus femoris musculature, new since the prior exam, incompletely assessed on the current examination. Clinical correlation recommended. Please note that all CT scans at this facility use dose modulation, iterative reconstruction, and/or weight-based dosing when appropriate to reduce radiation dose to as low as reasonably achievable. Dictated by Smooth Portillo MD @ 07/02/2024 1:52:28 AM (Electronically Signed)
--- OUTSIDE RECORDS SUMMARY | 2024-07-02 01:01 | XMS_ITS | Continuity of Care Document ---
Author Organization [facility] Address [address] [address] Phone Care Team Providers Care Glue Maker Bone Name Role Phone Evelyn Mcwilliams MD Unavailable [...] Providers Copied on Encounter OFFICE/OUTPA TIENT VISIT, [facility], [address] [address], [place], [address], [place] tel:[phone] [facility] Follow up (chief complaint) Body mass index [BMI] 30.0-30.9, adultHTNCardiac murmur, unspecifiedHype rlipidemia 5 [facility]. [address], [address] [facility], [place], [place], [id number] , [place]. tel:[phone] Referring Provider: Cedric Haile [address], [place], [address]. tel:[phone] [facility], [address], [address], [place] tel:[phone] 43 [facility] No Information 5 [facility]. [address], [address] [facility], [place], [place], [id number] , [place]. tel:[phone] OFFICE/OUTPA TIENT VISIT, [facility], [address], [address], [place] tel:[phone] 43 [facility] Follow up (chief complaint) HTNCardiac murmur, unspecifiedHype rlipidemiaBody mass index [BMI] 30.0-30.9, adult 4 [facility]. [address], [address], [place], [place], [id number] , [place]. tel:[phone] Referring Provider: Carlton Haile[address], [place], [address]. tel:[phone] OFFICE/OUTPA TIENT VISIT, [facility], [address] [address], [place], [address], [place] tel:[phone] 43 [facility] Follow up (chief complaint) HTNCardiac murmur, unspecified 4 [facility]. [address], [address], [place], [place], [id number] , [place]. tel:[phone] Referring Provider: Gianna Sawyer, [address], [place], [address]. tel:[phone] [facility], [address], [address], [phone] 43 [facility] Cardiac murmur, unspecifiedEsse ntial (primary) hypertension 4 [facility]. [address], [address] [facility], [place], [place], [id number] , [place]. tel:[phone] Referring Provider: Gianna Sawyer, [address], [place], [address]. tel:[phone] [facility], [address], [address], [place] [phone] 43 [facility] No Information 4 Sandy Gimenez. [address] [facility], [address] [facility], [place], [place], [id number] , [place]. tel:[phone] OFFICE/OUTPA TIENT VISIT, NEW [facility], [address], [address], [place] tel:[phone] 43 [facility] New patient (chief complaint) Body mass index [BMI] 31.0-31.9, adultHTNCardiac murmur, unspecified 4 Poppy Rivas. [address], [address] [facility], [place], [place], [id number] , [place]. [phone] Referring Provider: Gianna Sawyer, [address], [place], [address]. tel:[phone] Family History Family Member Type Diagnosis Age At Onset Problem Family history of Cancer, co samuel Problem Family history of Cancer, bl adder Problem Family history of Hypertensi on Payers Payer name Insurance type Covered green party ID Scar ruiz(s) BCBS Out Of Area CI [id number] Social History Type Description Quantity Date Captured [...] Future Order: Radiology Order Ca lcium Score (13635), Ordered on: Ordered Future Order: Radiology Order Ec hocardiogram, Complete Transthoracic ([id number]), Ordered on: Ordered History Of Present Illness Encounter Date Complaint History Of Prese nt Illness Follow up 68M with hyperte nsion here for follow up.Here to f/u [facility] - 30, all in LAD.He feels well and denies complaints. Follow up 68M with hyperte nsion here for follow up.Feels well and denies complaints. He was in [place] for the summer and said he felt [...] etc. 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
--- OUTSIDE RECORDS SUMMARY | 2024-07-02 01:01 | XMS_ITS | Clinical Summary ---
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 The [id number] was passed through the anus and advanced [...] 7:34 AM Procedure Code(s): --- Professional --- 29405, Colonoscopy, flexible; with removalof tumor(s), polyp(s), or other lesion(s) bysnare technique Diagnosis Code(s): --- Professional --- Z86.010, Personal history of colonicpolyps K63.5, Polyp of colon K62.1, Rectal polyp K57.30, Diverticulosis of large intestine without perforation or abscess withoutbleeding CPT copyright 2020 [employer]. All rights reserved. The codes documented in this report are preliminary and upon information assurance specialist reviewmay be revised to meet current compliance [...] Most Recently Relevant to Health Maintenance Insurance [facility] MR Care Teams Patent Attorney Relationship Specialty Start Date End Date Pcp, No . PCP - General 04/02/16
[2024-07-02] MEDS: 0.9 % SODIUM CHLORIDE 500 ML 500 ML IV (01:05)
[2024-07-02 01:13] LABS: Basophils Absolute Auto 0.03 K/uL (0.00-0.30); Basophils Percent Auto 0.3 % (0.0-3.0); Eosinophils Absolute Auto 0.21 K/uL (0.00-0.50); Eosinophils Percent Auto 2.1 % (0.0-7.0); Hematocrit 50.2 % (37.0-53.0); Hemoglobin* 16.5 gm/dL (13.5-17.5); Immature Granulocytes Abs Auto 0.05 K/uL (0.00-0.30); Immature Granulocytes Pct Auto 0.5 %; Lymphocytes Absolute Auto 3.97 K/uL (0.90-2.90); Mean Corpuscular HGB Conc 33 gm/dL (32-36); Mean Corpuscular Hemoglobin 27 pg (26-34); Mean Corpuscular Volume 81 fL (80-100); Monocytes Percent Auto 7.7 % (0.0-11.0); Neutrophils Absolute Auto 5.14 K/uL (1.7-7.0); Neutrophils Percent Auto 50.4 % (42.0-72.0); Platelet Count* 143 K/uL (140-440); RDW Coefficient of Variation % 13.3 % (11.5-15.5); Red Blood Count 6.19 m/uL (4.30-5.90); White Blood Count* 10.18 K/uL (4.50-11.00)
[2024-07-02 01:35] LABS: Slide Review Reflex No
[2024-07-02 01:38] LABS: Chloride* 104 mmol/L (96-114); Sodium* 142 mmol/L (135-149)
[2024-07-02 01:41] LABS: Blood Urea Nitrogen* 24 mg/dL (7-30); Estimated Glomerular Filt Rate 82 ml/min
[2024-07-02 01:42] LABS: Anion Gap 13 mEq/L (7-15); Calcium* 9.2 mg/dL (8.4-10.6); Carbon Dioxide* 25 mmol/L (20-32); Glucose* 104 mg/dL (60-115)
[2024-07-02 02:09] LABS: D Dimer Quantitative* 0.04 ug/ml (0.00-0.50)
--- NOTE | 2024-07-02 02:31 | CRLHL7_ITS ---
For Patients: As a result of the Century Cures Act, medical imaging exams and procedure reports are released immediately into your electronic medical record. You may view this report before your referring provider. If you have questions, please contact your health care provider. Indication: Localization of left-sided ureteral stone. Abdominal pain. Technique: Abdomen 1 view. Comparison: CT abdomen pelvis 07/02/2024. Findings/Impression: Soft tissue calcification in the region of the left proximal to mid ureter measuring 6 mm, projecting just to the left of the left L3 transverse process, corresponds to expected region of left ureteral calculus identified on same-day CT. Nonobstructive bowel gas pattern. No radiographic evidence of free intraperitoneal air. Excreted contrast is noted within the urinary system. No acute osseous abnormality. Dictated by Smooth Portillo MD @ 07/02/2024 3:03:49 AM (Electronically Signed)
== END 2024-07-02 02:59 | disposition home or self-care (01) ==
PROVIDERS: Family Medicine; Emergency Provider Family Medicine; PCP Family Medicine
DX: N20.2 Calculus of kidney with calculus of ureter (principal)
CPT/HCPCS: 36415; 74018; 74177; 80048; 81001; 82565; 85025; 85379; 99284; 99285; J7030; Q9967

== ENCOUNTER 2024-08-09 07:22 | Outpatient (CLI) | payer MEDICARE, BC, SELFPAY ==
[2024-08-09 15:11] LABS: PSA Screen* 2.05 ng/mL (0.10-4.00)
== END 2024-08-09 07:23 | disposition home or self-care (01) ==
LOC: NPINS 07:22
PROVIDERS: PCP Family Medicine; Visit Provider Urology
DX: Z12.5 Encounter for screening for malignant neoplasm of prostate (principal)
CPT/HCPCS: G0103

== ENCOUNTER 2024-10-25 08:27 | Outpatient (CLI) | payer MEDICARE, BC, SELFPAY | END 2024-10-25 08:28 | disposition home or self-care (01) | LOC: NFLDREF 10-27 14:35 | PROVIDERS: PCP Family Medicine; Referring Provider Family Medicine; Visit Provider Family Medicine | DX: Z00.00 Encounter for general adult medical examination without abnormal findings (principal); E78.5 Hyperlipidemia, unspecified; I10 Essential (primary) hypertension; R97.20 Elevated prostate specific antigen [PSA]; Z12.5 Encounter for screening for malignant neoplasm of prostate | CPT/HCPCS: 80061; G0103 ==